=== PATIENT | female | born 1940 | race Caucasian/White ===

== ENCOUNTER 2023-02-17 06:13 | Emergency (ER) | payer OTHER, SELFPAY ==
[2023-02-17] VITALS (34 sets, daily range): BP systolic 116–172; BP diastolic 57–91; PULSE 59–75; RESP 13–22; TEMP 36.5; O2SAT 92–98
--- NOTE | 2023-02-17 06:30 | ECG_ITS ---
The [facility] Test Date: 2023-02-17 Pat Name: VENTURA MEHTA Department: Room: - Gender: Female [employer]: : 1940 Requested By: Urban James Order Number: [id number] Reading MD: BERNARD DOWNEY Measurements Intervals Crocker Rate: 59 P: 52 PA: 180 QRS: 51 QRSD: 78 T: 60 QT: 432 QTc: 432 Interpretive Statements 1100 Sinus rhythm 9110 normal ECG No previous ECG available for comparison Electronically Signed On 02-19-2023 17:44:44 EST by BERNARD DOWNEY
--- NOTE | 2023-02-17 06:30 | XR_ITS ---
The [address] [address] Patient Name: VENTURA MEHTA MRN: [id number] date: 1940 Sex: F Assigned Patient Location: ER [facility] Accession/Order Number: [id number] Exam Date: 02/17/2023 06:39 Report Date: 02/17/2023 07:05 At the request of: DAREK WHITFIELD Procedure: XR chest 1V EXAM: XR chest 1V HISTORY: Chest pain; technologist notes state worsening left-sided chest pain that radiates to the center starting yesterday and dyspnea. COMPARISON: None. TECHNIQUE: AP erect portable chest radiograph performed. FINDINGS: The trachea is midline. The cardiac silhouette is upper limits normal size to slightly prominent. There is mild atheromatous calcification at the aortic arch. The hilar shadows are unremarkable. The lung volumes are normal. There is mild biapical pleural parenchymal scarring. There is a 1.3 cm nodular radiodensity medially at the right lung base. There is otherwise no consolidation or infiltrate, pleural effusion or pulmonary vascular congestion. There is no pneumothorax. There is no acute osseous abnormality. The bony structures appear osteopenic. XR/XR chest 1V IMPRESSION: There is a 1.3 cm nodular radiodensity medially at the right lung base. There is otherwise no acute cardiopulmonary process. Electronically authenticated by: YE URIOSTEGUI Date: 02/17/2023 07:05
--- NOTE | 2023-02-17 06:35 | ED.CHESTPAI1 ---
HPI - Chest Pain General Chief Complaint: Chest Pain Stated Complaint: CHEST PAIN Time Seen by Provider: 02/17/23 06:30 Source: patient Mode of arrival: ambulance History of Present Illness HPI narrative: Patient brought in by EMS for evaluation of chest pain - she said she developed the pain yesterday around 530pm and then it went away quickly. She said that she woke at 530am with the same pain - lower chest underneath both breasts that is worse with deep breaths but not painful to the touch. No recent injury or illness or activity to account for the pain. She took two 325mg aspirin this morning and then EMS gave her two SL nitro doses on the way to our ED. She said that the pain decreased from 10/10 at 530am to 5/10 now. Related Data Allergies Allergy/AdvReac Type Severity Reaction Status Date / Time No Known Drug Allergies Allergy Verified 02/17/23 06:17 [facility] Social History Smoking status: Never smoker Exam Narrative Exam Narrative: Nurses notes and vital signs reviewed and patient is not hypoxic. afebrile General: Well-appearing and in no apparent distress. Skin: Warm, dry, no pallor noted. No rash. Eye: Pupils are equal, round and EOMI. No scleral icterus. Ears, Nose, Mouth, and Throat: Oral mucosa is moist Cardiovascular: Regular Rate and Rhythm without murmur, gallop or rub. Respiratory: No accessory muscle use or respiratory distress. Lungs are clear to auscultation, no wheezing, rales or rhonchi Chest Wall: no tenderness, crepitus or subcutaneous emphysema Back: No midline thoracic or lumbar vertebral tenderness. No CVA tenderness Musculoskeletal: normal ROM, no calf or popliteal tenderness, no lower extremity edema/swelling GI: Abdomen is soft, non-distended. Normal bowel sounds. No tenderness to palpation. No rebound, guarding, or rigidity noted. Neurological: A&O x4. No cranial nerve dysfunction observed. No truncal ataxia. Moves all extremities. Sensation intact. Psychiatric: Cooperative and interactive. Normal mood and affect. Constitutional Vital Signs, click to edit/add: Last Vital Signs Temp 97.7 F 02/17/23 06:14 Pulse 64 02/17/23 06:14 Resp 22 02/17/23 06:14 BP 124/66 02/17/23 06:14 Pulse Ox 94 L 02/17/23 06:14 O2 Del Method Room Air 02/17/23 06:14 Course Vital Signs Vital signs: Vital Signs Temperature 97.7 F 02/17/23 06:14 Pulse Rate 64 02/17/23 06:14 Respiratory Rate 22 02/17/23 06:14 Blood Pressure 124/66 02/17/23 06:14 Pulse Oximetry 94 L 02/17/23 06:14 Oxygen Delivery Method Room Air 02/17/23 06:14 Temperature 97.7 F 02/17/23 06:14 Pulse Rate 64 02/17/23 06:14 Respiratory Rate 22 02/17/23 06:14 Blood Pressure 124/66 02/17/23 06:14 Pulse Oximetry 94 L 02/17/23 06:14 Oxygen Delivery Method Room Air 02/17/23 06:14 MDM - Chest Pain MDM Narrative Medical decision making narrative: Patient was placed on potline monitor and EKG obtained. Blood drawn and sent for evaluation. portable chest x-ray obtained. She is given IV Zofran and IV morphine. EKG is normal. Patient signed out to Dr Hartman at 7am shift change with lab results and CXR pending. Lab Data Attestation: I reviewed the patient's lab results. ECG Data Attestation: I personally reviewed and interpreted this ECG as follows: Interpretation: EKG interpretation: Emergency Department physician interpretation. Normal sinus rhythm at 59bpm. Normal axis, normal intervals and no ST segment elevation or depression. normal EKG. Discharge Plan Discharge Chief Complaint: Chest Pain Clinical Impression: Chest pain Patient Disposition: Still a Patient Referrals: Physician,Non-Staff, [Primary Care Provider] - 1 week
[2023-02-17 06:50] LABS: Basophils Percent Auto 0.8 % (0.2-2.0); Eosinophils Absolute Auto 0.1 10^3/uL (0.0-0.7); Eosinophils Percent Auto 2.3 % (0.9-7.0); Hematocrit 36.2 % (36.0-48.0); Hemoglobin 12.3 g/dL (12.0-16.0); Immature Granulocytes Abs Auto 0.01 10^3/uL (0.00-0.03); Immature Granulocytes Pct Auto 0.2 % (0.0-0.5); Lymphocytes Percent Auto 41.1 % (20.5-60.0); Mean Corpuscular Hemoglobin 32.8 pg (26.7-34.0); Mean Corpuscular Volume 96.5 fL (81.0-99.0); Mean Platelet Volume 11.4 fL (9.5-13.5); Monocytes Absolute Auto 0.5 10^3/uL (0.3-0.8); Monocytes Percent Auto 9.5 % (1.7-12.0); Neutrophils Absolute Auto 2.2 10^3/uL (1.4-6.5); Neutrophils Percent Auto 46.1 % (43.0-75.0); Platelet Count 148 10^3/uL (150-450); Red Blood Count 3.75 10^6/uL (4.20-5.40); Red Cell Distribution Width 12.7 % (11.0-15.0); White Blood Count 4.8 10^3/uL (4.0-11.0)
[2023-02-17 07:05] LABS: Anion Gap 13.7; BUN Creatinine Ratio 13.8; Calcium 8.9 mg/dL (8.5-10.1); Carbon Dioxide 28.9 mmol/L (21.0-32.0); Chloride 102 mmol/L (98-107); Estimated GFR (African America >60 (>=60); Estimated GFR (Non-African Ame >60 (>=60); Glucose 161 mg/dL (74-106); Potassium 3.6 mmol/L (3.5-5.1); Sodium 141 mmol/L (136-145)
[2023-02-17 07:06] LABS: Troponin I High Sensitivity 75.4 pg/mL (4.0-51.3)
[2023-02-17 07:37] LABS: INR 1.07; Prothrombin Time 11.3 sec (9.0-11.6)
[2023-02-17 07:40] LABS: Partial Thromboplastin Time 24.4 sec (22.3-36.2)
[2023-02-17] MEDS: HEPARIN SODIUM (PORCINE) 5,000 UNIT/ML VIAL 2200 UNIT IV (07:41)
[2023-02-17] MEDS: HEPARIN SODIUM,PORCINE/D5W 25,000 UNIT/500 ML IV.SOLN 13.063 UNIT IV (07:41)
[2023-02-17] MEDS: MORPHINE SULFATE 4 MG/ML VIAL IV (09:05)
[2023-02-17] MEDS: NITROGLYCERIN 0.4 MG BOTTLE PO (09:06)
[2023-02-17 09:32] LABS: Troponin I High Sensitivity 1459.5 pg/mL (4.0-51.3)
== END 2023-02-17 12:03 | disposition short-term general hospital (02) ==
PROVIDERS: Emergency Medicine; Emergency Provider Emergency Medicine
DX: I21.4 Non-ST elevation (NSTEMI) myocardial infarction (principal); R07.9 Chest pain, unspecified
CPT/HCPCS: 36415; 71045; 80048; 83880; 84484; 85025; 85610; 85730; 93005; 96374; 96375; 99285

== ENCOUNTER 2023-03-09 11:59 | Outpatient (OUT) | payer OTHER, SELFPAY ==
--- OUTSIDE RECORDS SUMMARY | 2023-03-09 12:06 | XMS_ITS | CCD ---
Author Name Unknown Address [address] [place] [address] Organization [facility] Care Team Providers Care Dial Screw Assembler Name Role Phone Unavailable Unavailable Unavailable SIEGAL, VILLA D Unavailable Unavailable SIEGAL, VILLA D Unavailable Unavailable SIEGAL, VILLA D Unavailable Unavailable SIEGAL, VILLA D Unavailable Unavailable SIEGAL, VILLA D Unavailable Unavailable SIEGAL, VILLA D Unavailable Unavailable SIEGAL, VILLA D Unavailable Unavailable Stretanski, Elias F Unavailable Unavailabl e Stretanski, Elias F Unavailable Unavailabl e Stretanski, Elias F Unavailable Unavailabl e Stretanski, Elias F Unavailable Unavailabl e [place], Suleiman Asencio Unavailable [place]usaSuleiman Primary Care Provider [phone] [place]usaSuleiman Primary Care Provider Unavailabl e SECOR, SULEIMAN Attending Unavailable SELF, SELF Referring Unavailable SECOR, SULEIMAN Attending Unavailable SELF, SELF Referring Unavailable SECOR, SULEIMAN Attending Unavailable SELF, SELF Referring Unavailable SECOR, SULEIMAN Attending Unavailable SELF, SELF Referring Unavailable SECOR, SULEIMAN Primary Care Unavailable [place]usaSuleiman Primary Care Provider [phone] NON STAFF Primary Care Provider UnavailMD Carine Finch Admit Provider MD Carine Thompson Attending Provider [phone] MD Marie Muhammad Other Provider Marie Muhammad Consulting Unavailable NON STAFF Primary Care Unavailable Carine Thompson Attending Unavailable Carine Thompson Admitting Unavailable Armin Rios Unavailable Allergies Allergy Classification Reported Allergen(s) Allergy Type Date of Onset Reaction(s) Facility (20 sources) Ascorbic Acid Drug Allergy 7 Swelling [facility] Work Phone: (20 sources) Seasonal allergy Propensity to adverse reactions to drug 8 [facility] Work Phone: (1 source) Ascorbic Acid Drug Allergy 3 [facility] Repository Medications Current Medications Medication Drug Class(es) Dates Sig (Normalized) Sig (Original) ACAI PO (20 sources) take 1 tablet by lovely th once daily ACAI PO Take 1 tablet by mouth daily. 0 Active take 1 tablet by mouth once david y ACAI PO Take 1 tablet by mouth daily. Active ASHWAGANDHA PO (20 sources) take 1 tablet by lovely th once daily ASHWAGANDHA PO Take 1 tablet by mouth daily. 0 Active take 1 tablet by mouth once david y ASHWAGANDHA PO Take 1 tablet by mouth daily. Active aspirin 81 mg delayed release oral tablet (12 sources) Platelet Aggregation Inhibitor, Nonsteroidal Anti-inflammatory Drug Start: 02-18-2023 take 81 mg by mouth once daily Aspirin Active 81 MG PO Daily February 18, 2023 12:00am Start: 10-03-2018 End: 10-31-2018 aspirin 81 MG Chew Tab chewa ble tablet Indications: NSTEMI (non-ST elevated myocardial infarction) Chew 1 tablet daily. 90 tablet 3 10/31/2018 Active Start: 10-03-2018 aspirin 81 MG Chew Tab chewable tablet Chew 1 tablet daily. 30 tablet 0 10/03/2018 Active Start: 09-29-2018 take 81 mg by mouth once daily 81 mg, Oral, DAILY, First dose on 09/29/18 at 1715, Until Discontinued Start: 09-29-2018 aspirin tablet 325 mg atorvastatin 80 mg oral tablet (3 sources) HMG-CoA Reductase Inhibitor Start: 02-18-2023 take 80 mg by mouth once daily in the evening Atorvastatin Active 80 MG PO Every evening February 18, 2023 12:00am Start: 09-30-2018 atorvastatin ( LIPITOR) tablet 80 mg Bilberry, Vaccinium myrtillus, (BILBERRY PO) (20 sources) take 1 tablet by lovely th once daily Bilberry, Vaccinium myrtillus, (BILBERRY PO) Take 1 tablet by mouth daily. 0 Active take 1 tablet by mouth once david y Bilberry, Vaccinium myrtillus, (BILBERRY PO) Take 1 tablet by mouth daily. Active Biotin (20 sources) take 1 tablet by mouth once david y BIOTIN PO Take 1 tablet by mouth daily. 0 Active take 1 tablet by mouth once david y BIOTIN PO Take 1 tablet by mouth daily. Active Calcium (20 sources) Phosphate Binder, Calcium take 1 tablet by mouth twice daily CALCIUM PO Take 1 tablet by mouth 2 times daily. 0 Active take 1 tablet by mouth twice ciara ly CALCIUM PO Take 1 tablet by mouth 2 times daily. Active carvedilol 12.5 mg oral tablet (9 sources) alpha-Adrenergic Rangel, beta-Adrenergic Rangel Start: 10-02-2018 End: 10-31-2018 take 1 tablet by mouth every twelve hours carveDILOL 12.5 MG Tab tablet Indications: Essential hypertension, benign Take 1 tablet by mouth every 12 hours. 180 tablet 3 10/31/2018 Active Start: 10-02-2018 carveDILOL (CO REG) tablet 12.5 mg cephalexin 500 mg oral capsule (2 sources) Cephalosporin Antibacterial Start: 02-04-2019 End: 02-14-2019 take 1 capsule by mouth three times daily cephALEXin 500 MG Cap capsule Take 1 capsule by mouth 3 times daily for 10 days. 30 capsule 0 02/04/2019 02/14/2019 Active Start: 01-23-2018 End: 01-30-2018 take 1 capsule by mouth three times daily cephALEXin 500 MG Cap capsule Take 1 capsule by mouth 3 times daily for 7 days. 21 capsule 0 01/23/2018 01/30/2018 Active Cholecalciferol (20 sources) Vitamin D take 1 tablet by lovely th once daily Cholecalciferol (VITAMIN D3 PO) Take 1 tablet by mouth daily. 0 Active take 1 tablet by mouth once david y Cholecalciferol (VITAMIN D3 PO) Take 1 tablet by mouth daily. Active Chondroitin Sulfates / Glucosamine (20 sources) take 1 tablet by mouth twice daily GLUCOSAMINE-CHONDROITIN PO Take 1 tablet by mouth 2 times daily. 0 Active take 1 tablet by lovely th twice daily GLUCOSAMINE-CHONDROITIN PO Take 1 tablet by mouth 2 times daily. Active clopidogrel 75 mg oral tablet (11 sources) P2Y12 Platelet Inhibitor Start: 02-18-2023 take 75 mg by mouth once daily Clopidogrel Active 75 MG PO Daily February 18, 2023 12:00am Start: 10-03-2018 End: 10-31-2018 take 1 tablet by mouth once daily clopidogrel 75 MG Tab tablet Indications: NSTEMI (non-ST elevated myocardial infarction) Take 1 tablet by mouth daily. 90 tablet 3 10/31/2018 Active Start: 10-03-2018 take 1 tablet by lovely th once daily clopidogrel 75 MG Tab tablet Take 1 tablet by mouth daily. 30 tablet 0 10/03/2018 Active Start: 10-02-2018 clopidogrel (P LAVIX) tablet 75 mg DISABILITY PLACARD (20 sources) Start: 01-24-2017 DISABILITY ALFREDA CARD Unable to walk 200ft. 1 year 1 Each 0 01/24/2017 Active doxycycline hyclate 100 mg oral capsule (2 sources) Tetracycline- class Drug Start: 05-15-2018 End: 05-25-2018 take 1 capsule by mouth twice daily doxycycline hyclate 100 MG Cap capsule Take 1 capsule by mouth 2 times daily for 10 days. 20 capsule 0 05/15/2018 05/25/2018 Active Start: 01-31-2018 End: 02-10-2018 take 1 capsule by mouth twice daily doxycycline hyclate 100 MG Cap capsule Take 1 capsule by mouth 2 times daily for 10 days. 20 capsule 0 01/31/2018 02/10/2018 Active Folic Acid (20 sources) take 1 tablet by mouth once david y FOLIC ACID PO Take 1 tablet by mouth daily. 0 Active take 1 tablet by mouth once david y FOLIC ACID PO Take 1 tablet by mouth daily. Active Garlic preparation (20 sources) Non-Standardized Food Allergenic Extract take 1 tablet by mouth once daily GARLIC PO Take 1 tablet by mouth daily. 0 Active take 1 tablet by mouth once david y GARLIC PO Take 1 tablet by mouth daily. Active Ginkgo biloba extract (20 sources) take 1 tablet by lovely th once daily GINKGO BILOBA PO Take 1 tablet by mouth daily. 0 Active take 1 tablet by mouth once david y GINKGO BILOBA PO Take 1 tablet by mouth daily. Active GINSENG PO (20 sources) take 1 tablet by mouth once david y GINSENG PO Take 1 tablet by mouth daily. 0 Active take 1 tablet by mouth once david y GINSENG PO Take 1 tablet by mouth daily. Active 24 hr isosorbide mononitrate 30 mg extended release oral tablet (2 sources) Nitrate Vasodilator Start: 02-18-2023 take 30 mg by mouth once daily in the morning Isosorbide Mononitrate Active 30 MG PO Every morning February 18, 2023 12:00am L-ARGININE PO (20 sources) L-ARGININE PO Ta ke by mouth. 0 Active L-ARGININE PO Ta ke by mouth. Active 4 ml labetalol hydrochloride 5 mg/ml cartridge (1 source) beta-Adrenergic Rangel Start: 09-30-2018 take 20 mg intravenous route every six hours as needed labetalol (NORMODYNE) injection 20 mg lisinopril 20 mg oral tablet (15 sources) Angiotensin Converting Enzyme Inhibitor Start: 10-12-2017 End: 10-02-2018 take 1 tablet by mouth once daily lisinopril 20 MG Tab Take 1 tablet by mouth daily. 90 tablet 3 07/10/2018 Active loratadine 10 mg oral tablet (20 sources) Start: 12-25-2017 End: 09-28-2018 take 1 tablet by mouth once daily loratadine 10 MG Tab tablet Take 1 tablet by mouth daily. 90 tablet 3 09/28/2018 Active Lutein (20 sources) take 1 tablet by mouth once daily LUTEIN PO Take 1 tablet by mouth daily. 0 Active take 1 tablet by mouth once david y LUTEIN PO Take 1 tablet by mouth daily. Active Magnesium (20 sources) take 1 tablet by lovely th once daily MAGNESIUM PO Take 1 tablet by mouth daily. 0 Active take 1 tablet by mouth once david y MAGNESIUM PO Take 1 tablet by mouth daily. Active 24 hr metoprolol succinate 25 mg extended release oral tablet (4 sources) beta-Adrenergic Rangel Start: 02-18-2023 take 25 mg by mouth once daily Metoprolol Succinate Active 25 MG PO Daily February 18, 2023 12:00am Start: 10-01-2018 End: 10-02-2018 metoprolol (LOPRESSOR) table t 25 mg Start: 09-29-2018 End: 09-29-2018 metoprolol (LOPRESSOR) injec tion 5 mg nitroglycerin 0.4 mg sublingual tablet (4 sources) Nitrate Vasodilator Start: 02-18-2023 Nitroglyce rin Active 0.4 MG SUBLINGUAL Q5M February 18, 2023 12:00am Start: 09-29-2018 End: 10-01-2018 nitroGLYCERIN in dextrose 5% 50 mg/250 ml premix infusion Start: 09-29-2018 End: 09-29-2018 nitroGLYCERIN (NITRO-BID) 2 % ointment 1 inch Nitroglycerin 0. 4 MG as directed Sublingual every 5 mins x 3 for chest pain Active [place] (No Known Home Meds) (1 source) Start: 02-17-2023 [place] (No Kn own Home Meds) Active February 17, 2023 12:00am [place] 3-6-9 Fatty Acids (OMEGA-3-6-9 PO) (20 sources) take 1 tablet by mouth once daily [place] 3-6-9 Fatty Acids (OMEGA-3-6-9 PO) Take 1 tablet by mouth daily. 0 Active take 1 tablet by mouth once david y [place] 3-6-9 Fatty Acids (OMEGA-3-6-9 PO) Take 1 tablet by mouth daily. Active pantoprazole 40 mg delayed release oral tablet (3 sources) Proton Pump Inhibitor Start: 09-30-2018 pantoprazole (PROTONIX) tablet DR 40 mg Start: 09-29-2018 End: 09-30-2018 40 mg, Intravenous, DAILY, F irst dose on 09/29/18 at 1715, Until Discontinued Dilute each 40 mg vial with 10 mL of NS. All bolus doses, whether 40 mg or 80 mg, should be administered over at least two minutes. Indications: Inpt Stress Ulcer Prophylaxis microencapsulated potassium chloride 20 meq extended release oral tablet (1 source) Start: 09-30-2018 potassium chlo ride (K-DUR, KLOR-CON M20) tablet ER 40 mEq tafluprost 0.015 mg/ml ophthalmic solution (20 sources) Prostaglandin Analog Start: 02-21-2017 ZIOPTAN 0 .0015 % Solution Apply 1 drop topically daily. 6 02/21/2017 Active Start: 02-21-2017 ZIOPTAN 0.0015 % Solution Apply 1 drop topically daily. 6 02/21/2017 Active TURMERIC CURCUMIN PO (20 sources) take 1 tablet by lovely th once daily TURMERIC CURCUMIN PO Take 1 tablet by mouth daily. 0 Active take 1 tablet by mouth once david y TURMERIC CURCUMIN PO Take 1 tablet by mouth daily. Active VITAMIN A PO (20 sources) take 1 tablet by mouth once david y VITAMIN A PO Take 1 tablet by mouth daily. 0 Active take 1 tablet by mouth once david y VITAMIN A PO Take 1 tablet by mouth daily. Active Vitamin B 12 (20 sources) Vitamin B12 take 1 tablet by lovely th once daily Cyanocobalamin (VITAMIN B12 PO) Take 1 tablet by mouth daily. 0 Active take 1 tablet by mouth once david y Cyanocobalamin (VITAMIN B12 PO) Take 1 tablet by mouth daily. Active VITAMIN E PO (20 sources) take 1 tablet by mouth once david y VITAMIN E PO Take 1 tablet by mouth daily. 0 Active take 1 tablet by mouth once david y VITAMIN E PO Take 1 tablet by mouth daily. Active Completed/Discontinued Medications Medication Drug Class(es) Dates Sig (Normalized) Sig (Original) acetaminophen 325 mg oral tablet (1 source) Start: 09-29-2018 take 1 tablet by mouth every four hours as needed 650 mg, Oral, EVERY 4 HOURS NEEDED, Starting 09/29/18 at 1702, Until Discontinued, Mild Pain, Oral temp > 100.4 F benzonatate 200 mg oral capsule (7 sources) Non-narcotic Antitussive Start: 01-23-2018 End: 05-15-2018 take 1 capsule by mouth three times daily as needed for cough benzonatate 200 MG Cap capsule Take 1 capsule by mouth 3 times daily as needed for Cough. 30 capsule 1 01/23/2018 05/15/2018 Discontinued 500 ml heparin sodium, porcine 50 unt/ml injection (5 sources) Unfractionated Heparin, Anti-coagulant Start: 09-29-2018 End: 09-29-2018 heparin injection 3,500 Units Start: 09-29-2018 End: 10-01-2018 Heparin Sod (Porcine) in D5W 47040-1 UT/500ML-% infusion methocarbamol 750 mg oral tablet (1 source) Muscle Relaxant Start: 04-07-2017 End: 01-23-2018 take 1-2 tablets by mouth every eight hours as needed for muscle spasms methocarbamol 750 MG Tab Indications: Status post lumbar laminectomy Take 1-2 tablets by mouth every 8 hours as needed for Other (muscle spasm). 30 tablet 0 04/07/2017 01/23/2018 Discontinued methylsulfonylmethane (1 source) End: 01-23-2018 take 1 tablet by mouth once daily Methylsulfonylmethane (MSM PO) Take 1 tablet by mouth daily. 01/23/2018 Discontinued 1 ml morphine sulfate 4 mg/ml cartridge (2 sources) Opioid Agonist Start: 09-29-2018 End: 09-29-2018 take 2 mg intravenous route every three hours as needed 2 mg, Intravenous, EVERY 3 HOURS NEEDED, Starting 09/29/18 at 1702, Until Discontinued, Moderate Pain, Severe Pain, Inform physician if requiring morphine and repeat EKG Niacin (10 sources) Nicotinic Acid End: 2018 take 1 tablet by mouth once daily NIACIN PO Take 1 tablet by mouth daily. 0 2018 Discontinued take 1 tablet by mouth once david y NIACIN PO Take 1 tablet by mouth daily. 0 Active take 1 tablet by mouth once david y NIACIN PO Take 1 tablet by mouth daily. Active 2 ml ondansetron 2 mg/ml injection (2 sources) Serotonin-3 Receptor Antagonist Start: 09-29-2018 take 4 mg intravenous route every four hours as needed 4 mg, Intravenous, EVERY 4 HOURS NEEDED, Starting 09/29/18 at 1702, Until Discontinued, Nausea / Vomiting Start: 09-29-2018 End: 09-29-2018 ondansetron 4mg/2ml (ZOFRAN) injection 4 mg PARoxetine hydrochloride 10 mg oral tablet (4 sources) Serotonin Reuptake Inhibitor Start: 05-15-2018 End: 2018 take 1 tablet by mouth once daily paroxetine 10 MG Tab tablet Take 1 tablet by mouth daily. 30 tablet 5 05/15/2018 2018 Discontinued 1000 ml sodium chloride 9 mg/ml injection (1 source) Start: 10-01-2018 End: 10-02-2018 sodium chloride 0.9% IV solution ticagrelor 90 mg oral tablet (2 sources) Start: 10-01-2018 End: 10-01-2018 ticagrelor (BRILINTA) tablet 180 mg Start: 09-29-2018 End: 09-29-2018 ticagrelor (BRILINTA) tablet 180 mg Problems Active Problems Problem Classification Problem Date Documented Da te Episodic/Chronic Acute myocardial infarction (12 sources) Myocardial infarction; Translations: [Non-ST elevation (NSTEMI) myocardial infarction] Onset: 10-01-2018 10-01-2018 Chronic Anxiety disorders (1 source) Anxiety disorder; Translations: [Anxiety disorder, unspecified type] Chronic Cataract (20 sources) Cataract; Translations: [Cataract] 08-19-2016 Chronic Coronary atherosclerosis and other heart disease (5 sources) Acute coronary syndrome; Translations: [Coronary atherosclerosis] Chronic Essential hypertension (20 sources) Benign essential hypertension; Translations: [Essential hypertension, benign] 04-06-2017 Chronic Glaucoma (20 sources) Glaucoma; Translations: [Glaucoma] 04-06-2017 Chronic Heart valve disorders (2 sources) Aortic valve stenosis; Translations: [Nonrheumatic aortic (valve) stenosis] Chronic Heart valve disorders (3 sources) Heart murmur; Translations: [Cardiac murmur, unspecified] Onset: 02-17-2023 02-17-2023 Episodic Nonspecific chest pain (20 sources) Chest pain; Translations: [Cardiac chest pain] Onset: 09-29-2018 09-30-2018 Episodic Other acquired deformities (2 sources) Spondylolisthesis, lumbar region; Translations: [Spondylolisthesis of lumbar region] Episodic Other and ill-defined heart disease (4 sources) Takotsubo cardiomyopathy; Translations: [Takotsubo syndrome] Chronic Other and ill-defined heart disease (1 source) Takotsubo syndrome Chronic Other lower respiratory disease (4 sources) Rib pain; Translations: [Rib pain] Onset: 2018 Episodic Other lower respiratory disease (1 source) Nodule of lung; Translations: [Solitary pulmonary nodule] 02-17-2023 Episodic Other lower respiratory disease (1 source) Solitary pulmonary nodule; Translations: [Solitary pulmonary nodule] 02-19-2023 Episodic Other upper respiratory disease (20 sources) Seasonal allergic rhinitis; Translations: [Seasonal allergic rhinitis] 08-19-2016 Chronic Other upper respiratory disease (2 sources) Pain in throat; Translations: [Sore Throat] Onset: 05-15-2018 Episodic Residual codes; unclassified (2 sources) Noncompliance with treatment; Translations: [Noncompliance] 02-18-2023 Episodic Spondylosis; intervertebral disc disorders; other back problems (2 sources) Backache; Translations: [Back Pain] Onset: 2018 Episodic Unclassified (2 sources) Other specified postprocedural states; Translations: [Other specified postprocedural states] Onset: 04-06-2017 Unclassified (20 sources) History of lumbar laminectomy; Translations: [Status post lumbar laminectomy] Onset: 04-06-2017 04-06-2017 Unclassified (1 source) Patient's noncompliance with other medical treatment and regimen due to unspecified reason; Translations: [Patient's noncompliance with other medical treatment and regimen due to unspecified reason] Onset: 02-17-2023 Past or Other Problems Problem Classification Problem Date Documented Date Episodic/Chronic Deficiency and other anemia (20 sources) Anemia; Translations: [Anemia] Onset: 04-06-2017 04-06-2017 Episodic Medical examination/evaluatio n (2 sources) Encounter for other preprocedural examination; Translations: [Encounter for other preprocedural examination] Onset: 03-23-2017 Episodic Other lower respiratory disease (5 sources) Cough; Translations: [Cough] Onset: 01-31-2018 Episodic Other upper respiratory disease (2 sources) Nasal congestion; Translations: [Nasal Congestion] Onset: 01-23-2018 Episodic Other upper respiratory infections (4 sources) Upper respiratory infection; Translations: [Upper respiratory tract infection, unspecified type] Episodic Results Test Name Value Interpretation Reference Range Facility ECG 12 lead ECGon 02-19-2023 ECG 12 lead ECG [facility] [place] [address] Electrocardiograph Report Signed Patient: Nancy Putnam MR#: [id number] 9 : 1940 Acct:[id number] Age/Sex: 82 / F ADM Date: 02/17/23 Loc: Room: [address] [place] [address] Type: ADM IN Attending Dr: Carine Thompson MD Ordering Provider: Carine Thompson MD Date of Service: 02/19/2301/02/500 ECG/ECG 12 lead ECG: Chest pain Copies to: Test Reason : Blood Pressure : / mmHG Vent. Rate : 069 BPM Atrial Rate : 069 BPM P-R Int : 188 ms QRS Dur : 076 ms QT Int : 396 ms P-R-T Axes : 075 080 096 degrees QTc Int : 424 ms Normal sinus rhythm Nonspecific ST abnormality When compared with ECG of 18-FEB-2023 06:52, No significant change was found Confirmed by MIGUEL RASMUSSEN MD ([id number]) on 02/19/2023 11:57:50 AM Referred By: Electronically Signed By:MIGUEL RASMUSSEN MD Transcribed By: MUS Signed By Miguel Rasmussen MD 1 04/22/22 1157 [facility] Basic Metabolic Panelon 12-0 Anion gap [Moles/Vol] Not performed Normal 6.0-15.0 [facility] Comment on above: Performed By: #### C BC, LIPID, BMP #### [facility] [address] Calcium [Mass/Vol] 9.0 mg/dL Normal 8.6-10.3 [facility] Comment on above: Performed By: #### C BC, LIPID, BMP #### [facility] [address] [place] [address] [place] Chloride [Moles/Vol] 101 mmol/L Normal 98-107 [facility] Comment on above: Performed By: #### C BC, LIPID, BMP #### [facility] [address] [place] [address] [place] CO2 [Moles/Vol] 28.3 mmol/L Normal 21.0-31.0 [facility] Comment on above: Performed By: #### C BC, LIPID, BMP #### [facility] [address] [place] [address] [place] Creatinine [Mass/Vol] 0.71 mg/dL Normal 0.60-1.20 [facility] Comment on above: Performed By: #### C BC, LIPID, BMP #### [facility] [address] [place] [address] [place] Creatinine Clr Calc Pharmacy 42.88 [facility] Comment on above: Performed By: #### C BC, LIPID, BMP #### [facility] [address] [place] [address] [place] GFR/1.73 sq M.predicted MDRD (S/P/Bld) [Vol rate/Area] mL/min/{1.73_m2} [facility] Comment on above: Performed By: #### C BC, LIPID, BMP #### [facility] [address] [place] [address] [place] Glucose [Mass/Vol] 110 mg/dL High 70-100 [facility] Comment on above: Result Comment: [facility] Glucose Reference Range is dependent on time and content of last meal. Glucose of more than 200 mg/dL in a nonstressed, ambulatory subject supports the diagnosis of Diabetes Mellitus. ADA recommended reference range Performed By: #### C BC, LIPID, BMP #### [facility] [address] Potassium Normal 3.5-5.1 [facility] Comment on above: Result Comment: Spec imen hemolyzed, redraw requested Performed By: #### C BC, LIPID, BMP #### [facility] [address] Sodium [Moles/Vol] 135 mmol/L Low 136-145 [facility] Comment on above: Performed By: #### C BC, LIPID, BMP #### [facility] [address] Urea nitrogen [Mass/Vol] 11 mg/dL Normal 7-25 [facility] Comment on above: Performed By: #### C BC, LIPID, BMP #### [facility] [address] Basophils Auto (Bld) [#/Vol] Ordered By: Carine Thompson on 02-18-2023 Basophils (Bld) [#/Vol] 0.0 10*3/uL 0.0-0.2 [facility] Basophils/100 WBC Auto (Bld) Ordered By: Carine Thompson on 02-18-2023 Basophils/100 WBC (Bld) 0.7 % . [facility] Calcium [Mass/volume] in Ser um or PlasmaOrdered By: Carine Thompson on 02-18-2023 Calcium [Mass/Vol] 9.0 mg/dL 8.6-10.3 [facility] Carbon dioxide, total [Moles /volume] in Serum or PlasmaOrdered By: Carine Thompson on 02-18-2023 CO2 [Moles/Vol] 28.3 mmol/L 21.0-31.0 [facility] Chloride [Moles/volume] in S [place] or PlasmaOrdered By: Carine Thompson on 02-18-2023 Chloride [Moles/Vol] 101 mmol/L 98-107 [facility] Cholesterol [Mass/volume] in Serum or PlasmaOrdered By: Carine Thompson on 02-18-2023 Cholesterol [Mass/Vol] 157 mg/dL 140-200 [facility] Comment on above: Chol less than 200 m g/dl low riskChol 201-239 mg/dl borderline riskChol 240 mg/dl and greater high risk Cholesterol in LDL Calc [Mas s/Vol]Ordered By: Carine Thompson on 02-18-2023 Cholesterol in LDL [Mass/Vol] 93 mg/dL 0-100 [facility] Comment on above: LDL ATP III CLASSIFI CATIONLDL less than 100 mg/dL OptimalLDL 100-129 mg/dL Near or above optimalLDL 130-159 mg/dL Borderline highLDL 160-189 mg/dL HighLDL greater than 189 mg/dL Very high Cholesterol in VLDL Calc [Ma ss/Vol]Ordered By: Carine Thompson on 02-18-2023 Cholesterol in VLDL [Mass/Vol] 18 mg/dL [facility] Complete Blood Count Auto Di ffon 02-18-2023 Basophils (Bld) [#/Vol] 0.0 10*3/uL Normal 0.0-0.2 [facility] Comment on above: Result Comment: PERF ORMED BY: [place] [address] PATHOLOGIST [employer]ER NUPUR DEL CASTILLO M.D. Performed By: #### C BC, LIPID, BMP #### [facility] [address] [place] [address] [place] Basophils/100 WBC (Bld) 0.7 % Normal . [facility] Comment on above: Performed By: #### C BC, LIPID, BMP #### [facility] [address] [place] [address] [place] Eosinophils (Bld) [#/Vol] 0.0 10*3/uL Normal 0.0-0.45 [facility] Comment on above: Performed By: #### C BC, LIPID, BMP #### [facility] [address] [place] [address] [place] Eosinophils/100 WBC (Bld) 0.4 % Normal . [facility] Comment on above: Performed By: #### C BC, LIPID, BMP #### [address] Erythrocyte distribution width (RBC) [Ratio] 13.3 % Normal 11.9-15.3 [facility] Comment on above: Performed By: #### C BC, LIPID, BMP #### [address] Hematocrit (Bld) [Volume fraction] 37.2 % Normal 34.0-46.4 [facility] Comment on above: Performed By: #### C BC, LIPID, BMP #### [address] Hemoglobin (Bld) [Mass/Vol] 12.5 g/dL Normal 11.8-15.4 [facility] Comment on above: Performed By: #### C BC, LIPID, BMP #### [address] Lymphocytes (Bld) [#/Vol] 1.5 10*3/uL Normal 1.00-4.8 [facility] Comment on above: Performed By: #### C BC, LIPID, BMP #### [address] Lymphocytes/100 WBC (Bld) 28.7 % Normal . [facility] Comment on above: Performed By: #### C BC, LIPID, BMP #### [place] [address] [place] MCH (RBC) [Entitic mass] 32.3 pg Normal 24.7-34.3 [facility] Comment on above: Performed By: #### C BC, LIPID, BMP #### [address] MCV (RBC) [Entitic vol] 96.5 fL Normal 80-100 [facility] Comment on above: Performed By: #### C BC, LIPID, BMP #### [facility] [address] Mean Corpuscular HGB Conc 33.5 g/dL Normal 32.0-35.0 [facility] Comment on above: Performed By: #### C BC, LIPID, BMP #### [facility] [address] Monocytes (Bld) [#/Vol] 0.7 10*3/uL Normal 0.0-0.8 [facility] Comment on above: Performed By: #### C BC, LIPID, BMP #### [facility] [address] Monocytes/100 WBC (Bld) 13.6 % Normal . [facility] Comment on above: Performed By: #### C BC, LIPID, BMP #### [address] Neutrophils (Bld) [#/Vol] 3.0 10*3/uL Normal 1.8-7.7 [facility] Comment on above: Performed By: #### C BC, LIPID, BMP #### [address] Neutrophils/100 WBC (Bld) 56.6 % Normal . [facility] Comment on above: Performed By: #### C BC, LIPID, BMP #### [address] NRBC% 0.1 /100{WBC} Normal 0-0.5 [facility] Comment on above: Performed By: #### C BC, LIPID, BMP #### [facility] [address] [place] [address] [place] Platelet mean volume (Bld) [Entitic vol] 9.3 fL Normal 6.3-10.7 [facility] Comment on above: Performed By: #### C BC, LIPID, BMP #### [facility] [address] [place] [address] [place] Platelets (Bld) [#/Vol] 166 10*3/uL Normal 150-450 [facility] Comment on above: Performed By: #### C BC, LIPID, BMP #### [facility] [address] [place] [address] [place] RBC (Bld) [#/Vol] 3.86 10*6/uL Normal 3.60-5.[address] [facility] Comment on above: Performed By: #### C BC, LIPID, BMP #### [facility] [address] [place] [id number] [facility] WBC (Bld) [#/Vol] 5.3 10*3/uL Normal 3.8-11.6 [facility] Comment on above: Performed By: #### C BC, LIPID, BMP #### [facility] [address] Creatinine [Mass/volume] in Serum or PlasmaOrdered By: Carine Thompson on 02-18-2023 Creatinine [Mass/Vol] 0.71 mg/dL 0.60-1.20 [facility] ECG 12 lead ECGon 02-18-2023 ECG 12 lead ECG [facility] Main [place] [address] [place] [address] Electrocardiograph Report Signed Patient: Nancy Putnam MR#: [id number] 9 : 1940 Acct:[id number] Age/Sex: 82 / F ADM Date: 02/17/23 Loc: Room: [address] [place] [address] Type: ADM IN Attending Dr: Carine Thompson MD Ordering Provider: Carine Thompson MD Date of Service: 02/18/2312/03/499 ECG/ECG 12 lead ECG: Chest pain Copies to: Test Reason : Blood Pressure : / mmHG Vent. Rate : 079 BPM Atrial Rate : 079 BPM P-R Int : 210 ms QRS Dur : 074 ms QT Int : 378 ms P-R-T Axes : 057 078 085 degrees QTc Int : 433 ms Sinus rhythm with 1st degree AV block Otherwise normal ECG No previous ECGs available Confirmed by MIGUEL RASMUSSEN MD ([id number]) on 02/18/2023 6:24:41 PM Referred By: Electronically Signed By:MIGUEL RASMUSSEN MD Transcribed By: MUS Signed By Miguel Rasmussen MD 1 04/21/22 1824 Normal [facility] Eosinophils Auto (Bld) [#/Vo l]Ordered By: Carine Thompson on 02-18-2023 Eosinophils (Bld) [#/Vol] 0.0 10*3/uL 0.0-0.45 [facility] Eosinophils/100 WBC Auto (Bl d)Ordered By: Carine Thompson on 02-18-2023 Eosinophils/100 WBC (Bld) 0.4 % . [facility] Erythrocyte distribution wid th Auto (RBC) [Ratio]Ordered By: Carine Thompson on 02-18-2023 Erythrocyte distribution width (RBC) [Ratio] 13.3 % 11.9-15.3 [facility] Glucose [Mass/volume] in Ser um or PlasmaOrdered By: Carine Thompson on 02-18-2023 Glucose [Mass/Vol] 110 mg/dL 70-100 [facility] Comment on above: ADA recommended refe rence rangeRandom Glucose Reference Range is dependent on time and content of last meal. Glucose of more than 200 mg/dL in a nonstressed, ambulatory subject supports the diagnosis of Diabetes Mellitus. Hematocrit Auto (Bld) [Volum e fraction]Ordered By: Carine Thompson on 02-18-2023 Hematocrit (Bld) [Volume fraction] 37.2 % 34.0-46.4 [facility] Hemoglobin [Mass/volume] in BloodOrdered By: Carine Thompson on 02-18-2023 Hemoglobin (Bld) [Mass/Vol] 12.5 g/dL 11.8-15.4 [facility] Leukocytes [#/volume] correc kevin for nucleated erythrocytes in Blood by Automated counOrdered By: Carine Thompson on 02-18-2023 WBC corrected for nucl RBC Auto (Bld) [#/Vol] 5.3 10*3/uL 3.8-11.6 [facility] Lipid Panelon 02-18-2023 Cholesterol [Mass/Vol] 157 mg/dL Normal 140-200 [facility] Comment on above: Result Comment: Chol less than 200 mg/dl low risk Chol 201-239 mg/dl borderline risk Chol 240 mg/dl and greater high risk Performed By: #### C BC, LIPID, BMP #### [facility] [address] Cholesterol in HDL [Mass/Vol] 46 mg/dL Normal 23-92 [facility] Comment on above: Result Comment: HDL CHOL ATP-III CLASSIFICATION Cardiovascular Risk HDL > or equal to 60 mg/dL LOW HDL < 40 mg/dL HIGH Performed By: #### C BC, LIPID, BMP #### [address] Cholesterol.total/Chol esterol in HDL [Mass ratio] 3.4 {ratio} Normal <5.0 [facility] Comment on above: Result Comment: PERF ORMED BY: [place] [address] PATHOLOGIST SPOOL CLEANER NUPUR DEL CASTILLO M.D. Performed By: #### C BC, LIPID, BMP #### [address] LDL Cholesterol,Calculated 93 mg/dL Normal 0-100 [facility] Comment on above: Result Comment: LDL ATP III CLASSIFICATION LDL less than 100 mg/dL Optimal LDL 100-129 mg/dL Near or above optimal LDL 130-159 mg/dL Borderline high LDL 160-189 mg/dL High LDL greater than 189 mg/dL Very high Performed By: #### C BC, LIPID, BMP #### [address] Triglyceride w/Reflex 90 mg/dL Normal 0-149 [facility] Comment on above: Result Comment: TRIG ATP III CLASSIFICATION TRIG less than 150 mg/dL Normal TRIG 150-199 mg/dL Borderline high TRIG 200-500 mg/dL High TRIG greater than 500 mg/dL Very high Standard traceable to the Center for Disease Conrtrol and Prevention (CDC) test method. Performed By: #### C BC, LIPID, BMP #### [facility] [address] VLDL CHOLESTEROL 18 mg/dL Normal [facility] Comment on above: Performed By: #### C BC, LIPID, BMP #### [facility] [address] [place] [id number] [facility] Lymphocytes Auto (Bld) [#/Vo l]Ordered By: Carine Thompson on 02-18-2023 Lymphocytes (Bld) [#/Vol] 1.5 10*3/uL 1.00-4.8 [facility] Lymphocytes/100 WBC Auto (Bl d)Ordered By: Carine Thompson on 02-18-2023 Lymphocytes/100 WBC (Bld) 28.7 % . [facility] MCH Auto (RBC) [Entitic mass ]Ordered By: Carine Thompson on 02-18-2023 MCH (RBC) [Entitic mass] 32.3 pg 24.7-34.3 [facility] MCHC Auto (RBC) [Mass/Vol]Or dered By: Carine Thompson on 02-18-2023 MCHC (RBC) [Mass/Vol] 33.5 g/dL 32.0-35.0 [facility] MCV Auto (RBC) [Entitic vol] Ordered By: Carine Thompson on 02-18-2023 MCV (RBC) [Entitic vol] 96.5 fL 80-100 [facility] Monocytes Auto (Bld) [#/Vol] Ordered By: Carine Thompson on 02-18-2023 Monocytes (Bld) [#/Vol] 0.7 10*3/uL 0.0-0.8 [facility] Monocytes/100 WBC Auto (Bld) Ordered By: Carine Thompson on 02-18-2023 Monocytes/100 WBC (Bld) 13.6 % . [facility] Neutrophils Auto (Bld) [#/Vo l]Ordered By: Carine Thompson on 02-18-2023 Neutrophils (Bld) [#/Vol] 3.0 10*3/uL 1.8-7.7 [facility] Neutrophils/100 WBC Auto (Bl d)Ordered By: Carine Thompson on 02-18-2023 Neutrophils/100 WBC (Bld) 56.6 % . [facility] No Panel InformationOrdered By: Carine Thompson on 02-18-2023 Estimated GFR (CKD-EPI) > 60.0 mL/Min [facility] Creatinine Clearance (Chem 42.88 [facility] Nucleated erythrocytes [Pres ence] in Blood by Automated countOrdered By: Carine Thompson on 02-18-2023 Nucleated RBC Auto Ql (Bld) 0.1 /100{WBC} 0-0.5 [facility] Platelet mean volume Auto (B ld) [Entitic vol]Ordered By: Carine Thompson on 02-18-2023 Platelet mean volume (Bld) [Entitic vol] 9.3 fL 6.3-10.7 [facility] Platelets Auto (Bld) [#/Vol] Ordered By: Carine Thompson on 02-18-2023 Platelets (Bld) [#/Vol] 166 10*3/uL 150-450 [facility] Potassium [Moles/volume] in Serum or PlasmaOrdered By: Carine Thompson on 02-18-2023 Potassium [Moles/Vol] 4.0 mmol/L 3.5-5.1 [facility] RBC Auto (Bld) [#/Vol]Ordere d By: Carine Thompson on 02-18-2023 RBC (Bld) [#/Vol] 3.86 10*6/uL 3.60-5.[address] [facility] Redraw Potassiumon Potassium [Moles/Vol] 4.0 mmol/L Normal 3.5-5.1 [facility] Comment on above: Result Comment: PERF ORMED BY: [place] [address] PATHOLOGIST SPOOL CLEANER NUPUR DEL CASTILLO M.D. Performed By: #### R KASEY K #### [address] Serum or plasma anion gap de terminationOrdered By: Carine Thompson on 02-18-2023 Anion gap [Moles/Vol] TNP [facility] Comment on above: Test not performed Serum or plasma high density lipoprotein (HDL) cholesterol measurementOrdered By: Carine Thompson on 02-18-2023 Cholesterol in HDL [Mass/Vol] 46 mg/dL 23-92 [facility] Comment on above: HDL CHOL ATP-III CLA SSIFICATION Cardiovascular RiskHDL > or equal to 60 mg/dL LOWHDL < 40 mg/dL HIGH Serum or plasma total choles terol/high density lipoprotein (HDL) cholesterol mass ratOrdered By: Carine Thompson on 02-18-2023 Cholesterol.total/Chol esterol in HDL [Mass ratio] 3.4 {ratio} <5.0 [facility] Sodium [Moles/volume] in Ser um or PlasmaOrdered By: Carine Thompson on 02-18-2023 Sodium [Moles/Vol] 135 mmol/L 136-145 [facility] Triglyceride [Mass/volume] i n Serum or PlasmaOrdered By: Carine Thompson on 02-18-2023 Triglyceride [Mass/Vol] 90 mg/dL 0-149 [facility] Comment on above: TRIG ATP III CLASSIF ICATIONTRIG less than 150 mg/dL NormalTRIG 150-199 mg/dL Borderline highTRIG 200-500 mg/dL High TRIG greater than 500 mg/dL Very highStandard traceable to the Center for Disease Conrtrol and Prevention (CDC) test method. Troponin I High Sensitivityo n 02-18-2023 Troponin I High Sensitivity 41924.0 pg/mL Off scale high 0.0-15.0 [facility] Comment on above: Result Comment: Crit ical Result I_TnIHS_d:61966.0 Called to and read back by: JAMES MORENO at: 02/18/2023 02:00:10 by:JOSSELINE PERFORMED BY: [place] [address] PATHOLOGIST SPOOL CLEANER NUPUR DEL CASTILLO M.D. Performed By: #### H S TROP #### [address] Troponin I.cardiac [Mass/vol ume] in Serum or Plasma by Detection limit <= 0.01 ng/Ordered By: Carine Thompson on 02-18-2023 Troponin I.cardiac DL <= 0.01 ng/mL [Mass/Vol] 81164.0 pg/mL 0.0-15.0 [facility] Comment on above: Critical Result I_Tn IHS_d:86384.0 Called to and read back by: JAMES MORENO at: 02/18/2023 02:00:10 by:JOSSELINE Urea nitrogen [Mass/volume] in Serum or PlasmaOrdered By: Carine Thompson on 02-18-2023 Urea nitrogen [Mass/Vol] 11 mg/dL 7-25 [facility] WBC Auto (Bld) [#/Vol]Ordere d By: Carine Thompson on 02-18-2023 WBC (Bld) [#/Vol] 5.3 10*3/uL 3.8-11.6 [facility] ECH echo transthoracicon ECH echo transthoracic [facility] [place] [address] Echocardiogram Signed Patient: Nancy Putnam MR#: [id number] 9 : 1940 Acct:[id number] Age/Sex: 82 / F ADM Date: 02/17/23 Loc: Room: [address] [place] [address] Type: ADM IN Attending Dr: Carine Thompson MD Ordering Provider: Carine Thompson MD Date of Service: 02/17/2311/02/1324 [facility] echo transthoracic: MS Copies to: Zamzam Robert MD, [facility] Carine Thompson MD : 1940 Gender: Female (MM/DD/YYYY) Age: 82 Years Ordering Physician: Carine Thompson Height: 61.81 in Weight: 131.814 lb Performed By: Gabriela Landry [facility] BSA: 1.60 m2 BP: 174 / 81 mmHg HR: 69 bpm Reason For Study: MS History: No cardiac history per patient + + Interpretation Summary The left ventricular size, thickness and function are normal Ejection Fraction = 65-70%. Mitral valve annulus tissue Doppler imaging is consistent with elevated left atrial pressure. Mild valvular aortic stenosis. Severe calcification of the posterior MV leaflet with no stenosis but with mild regurgitation There is mild tricuspid regurgitation. The right ventricular systolic pressure is 45 mmHg. Procedure/Quality: A two-dimensional transthoracic echocardiogram with color flow and Doppler was performed. The study was technically good in quality. Left Ventricle: The left ventricular size, thickness and function are normal. Ejection Fraction = 65-70%. Mitral valve annulus tissue Doppler imaging is consistent with elevated left atrial pressure. Left Atrium: The left atrium appears normal in size. The atrial septum appears normal. Right Ventricle: The right ventricular size, thickness and function are normal. Aortic Valve: The aortic valve is trileaflet. The aortic valve is moderately calcified. Mild valvular aortic stenosis. Mitral Valve: Severe calcification of the posterior MV leaflet with no stenosis but with mild regurgitation. Tricuspid Valve: The tricuspid valve is normal. There is mild tricuspid regurgitation. The right ventricular systolic pressure is 45 mmHg. Pulmonic Valve: The pulmonic valve leaflets are thin and pliable; valve motion is normal. Arteries: The aortic root is normal size. Pericardium/Pleura: No pericardial effusion seen. There is no pleural effusion. IVC/Hepatic Veins: The IVC is normal in size with an inspiratory collapse of greater then 50%, suggesting normal right atrial pressure. Miscellaneous: No thrombus, vegetation or mass is seen. MMode/2D Measurements Calculations IVSd (0.7-1.1 cm): 1.12 cm LVIDd (3.7-5.4 cm): 3.3 cm LVPWd (0.7-1.1 cm): 0.98 cm LVIDs (2.3-3.6 cm): 1.69 cm LA dimension (2.3-4.0 cm): 2.7 cm Ao root diam (2.0-3.2 cm): 3.0 cm FS: 48.7 % Ao root area: 7.2 cm2 EDV(Teich): 43.8 ml LVOT diam: 1.83 cm ESV(Teich): 8.3 ml LVOT area: 2.6 cm2 EF(Teich): 81.2 % LAV(MOD-sp2): 20.9 ml LAV(MOD-sp4): 15.2 ml LA A2 area: 9.7 cm2 LA A4 area: 8.6 cm2 LA length (vol): 3.6 cm LA vol: 19.3 ml LA vol index: 12.1 ml/m2 Doppler Measurements Calculations MV E max justice: 121.0 cm/sec Ao V2 max: 294.3 cm/sec MV A max justice: 136.5 cm/sec Ao max P.6 mmHg MR max justice: 536.0 cm/sec Ao mean P.1 mmHg MV dec time: 0.23 sec Ao V2 mean: 224.1 cm/sec MV dec slope: 536.3 cm/sec?? Ao V2 VTI: 73.1 cm E/E' lat: 17.0 KELLY(I,D): 0.67 cm2 E/E' med: 21.9 KELLY(V,D): 0.60 cm2 AI P1/2t: 592.9 msec TV max P.0 mmHg LV V1 max: 66.5 cm/sec TR max justice: 298.6 cm/sec LV V1 max P.77 mmHg TR max P.7 mmHg LV V1 mean: 50.4 cm/sec RAP systole: 3.0 mmHg LV V1 mean P.01 mmHg LV V1 VTI: 18.6 cm + + + + + : Electronically signed : : : : by: ZAMZAM Gutierrez. : : MD CECILIO, : : FACC : : : : on: 02/17/2023, 10:53 : : PM : Transcribed By: SCV Performed At: 02/17/23 5813 Signed By: Zamzam Robert MD, FACC 02/17/23 7951 Normal [facility] Troponin I High Sensitivityo n 02-17-2023 Troponin I High Sensitivity 8318.9 pg/mL Off scale high 0.0-15.0 [facility] Comment on above: Result Comment: Crit ical Result : Called to and read back by: BISI MCKINNEY at: 02/17/2023 16:05:53 by:DORETHA PERFORMED BY: [place] [address] PATHOLOGIST SPOOL CLEANER NUPUR DEL CASTILLO M.D. Performed By: #### H S TROP #### [place] [id number] [facility] Outside Recordson 08-26-2019 Outside Records [id number]#[address] Lab - Other Lab Result[facility] Lab - Other Lab Results [id number]#[address] [place] [address] Outside [facility] 05-20-2019 Outside Records [id number]#[address] Patient Provided Health Data on 05-20-2019 Patient Provided Health Data [id number]#1.00[facility] Outside [facility] 05-03-2019 Outside Records [id number]#[address] [place] [address] ECHOCARDIOGRAMon 02-01-2019 APPR DULCE MARIA REPORT Conclusion Normal LV size and function, estimated EF 60%. Systolic function has improved from prior EF 40-45% in 09/2018. Normal RV size and function. Calcified AV with mild and mild AI. MV and TV not fully interrogated as this was limited study. Moderate MAC, Left Ventricle The left ventricle is small. Left ventricular systolic function is normal. The septal thickness is mildly increased. There is normal LV segmental wall motion. The diastolic function was not assessed. LVEF is 60%. Right Ventricle The right ventricle is normal size. The right ventricular systolic function is normal. There is normal right ventricular wall thickness. Atria The left atrium is small. The right atrium size is normal. Aortic Valve Aortic valve is calcified. Mild aortic stenosis. Mild aortic regurgitation. Mitral Valve Mitral valve leaflets are thickened. Moderate mitral annular calcification. No evidence of mitral valve stenosis. Trace mitral regurgitation. Tricuspid Valve The tricuspid valve is not well visualized. Not assessed Pulmonic Valve Pulmonic valve is not well visualized. Great Vessels The aortic root size is normal. The ascending aorta size is normal. Pericardium There is no pericardial effusion. EXAM: Limited 2D, Doppler, and color-flow Echocardiogram 2D Dimensions IVSd 1.25 cm F: 0.6-1.0 LVEF (Visual) 81.36 % PWd 1.03 cm F: 0.6 - 1.0 LVEF (Thomas's) 55.69 % F: 54 - 74 LVDd 3.75 cm F: 3.9 - 5.3 EF AP4-a2DQ 59.29 % LVDs 1.90 cm F: 2.2 - 3.5 EF AP2-a2DQ 58.35 % Aortic Root 3.01 cm F: 2.7 - 3.3 EF BP-a2DQ 55.69 % Aortic Root Index 1.8 cm/m2 LV Volume 50.52 mL F: 46 - 106 Ascending Aorta 3.03 cm F: 2.3 - 3.1 LV Volume Index 30.25 mL/m2 F: 29 - 61 Ascending Aorta Index: 1.8 cm/m2 LA Volume Left Atrium 2.68 cm F: 2.7 - 3.8 RVID Base (AP4) 2.02 cm (M/F) 2.5-4.1 LVOT 2.01 cm (M/F) 1.5-2.5 Aortic Valve LVOT Max 0.88 (0.7-1.1 m/s) LVOT VTI 22.03 cm AV DI 0.42 (>0.25) AoV Peak Justice. 1.91 (0.5-1.3 m/s) AI PHT 568.75 ms AV Vmean 1.56 m/s AO Peak GR. 14.57 mmHg AO Mean GR. 10.15 (<5 mmHg) AO VTI 52.70 (18-25 cm) KELLY (VTI) 1.33 (2.5-4.5 cm2) AR Peak Gr. 88.63 mmHg AR Decel [place] 2.40 m/s2 Tricuspid Valve RAP Estimate 3.00 mmHg [facility] Shakeel, Andrea - 02/01/2019 3:04 PM EST APPROVED REPORT Conclusion Normal LV size and function, estimated EF 60%. Systolic function has improved from prior EF 40-45% in 09/2018. Normal RV size and function. Calcified AV with mild and mild AI. MV and TV not fully interrogated as this was limited study. Moderate MAC, Left Ventricle The left ventricle is small. Left ventricular systolic function is normal. The septal thickness is mildly increased. There is normal LV segmental wall motion. The diastolic function was not assessed. LVEF is 60%. Right Ventricle The right ventricle is normal size. The right ventricular systolic function is normal. There is normal right ventricular wall thickness. Atria The left atrium is small. The right atrium size is normal. Aortic Valve Aortic valve is calcified. Mild aortic stenosis. Mild aortic regurgitation. Mitral Valve Mitral valve leaflets are thickened. Moderate mitral annular calcification. No evidence of mitral valve stenosis. Trace mitral regurgitation. Tricuspid Valve The tricuspid valve is not well visualized. Not assessed Pulmonic Valve Pulmonic valve is not well visualized. Great Vessels The aortic root size is normal. The ascending aorta size is normal. Pericardium There is no pericardial effusion. EXAM: Limited 2D, Doppler, and color-flow Echocardiogram 2D Dimensions IVSd 1.25 cm F: 0.6-1.0LVEF (Visual)81.36 % PWd 1.03 cm F: 0.6 - 1.0LVEF (Thomas's)55.69 % F: 54 - 74 LVDd 3.75 cm F: 3.9 - 5.3EF AP4-a2DQ59.29 % LVDs 1.90 cm F: 2.2 - 3.5EF AP2-a2DQ58.35 % Aortic Root 3.01 cm F: 2.7 - 3.3EF BP-a2DQ55.69 % Aortic Root Index1.8 cm/m2LV Onfjtg98.52 mL F: 46 - 106 Ascending Aorta 3.03 cm F: 2.3 - 3.1LV Volume Index30.25 mL/m2 F: 29 - 61 Ascending Aorta Index: 1.8 cm/m2LA Volume Left Atrium 2.68 cm F: 2.7 - 3.8RVID Base (AP4)2.02 cm (M/F) 2.5-4.1 LVOT2.01 cm (M/F) 1.5-2.5 Aortic Valve LVOT Max0.88 (0.7-1.1 m/s)LVOT VTI22.03 cm AV DI0.42 (>0.25)AoV Peak Justice.1.91 (0.5-1.3 m/s) AI TJH771.75 msAV Vmean 1.56 m/s AO Peak GR.14.57 mmHgAO Mean GR.10.15 (<5 mmHg) AO VTI52.70 (18-25 cm)KELLY (VTI)1.33 (2.5-4.5 cm2) AR Peak Gr.88.63 mmHgAR Decel Slope2.40 m/s2 Tricuspid Valve RAP Estimate3.00 mmHg [facility] BASIC METABOLIC PANELon 07- Anion gap [Moles/Vol] 7 mmol/L Low [facility] Calcium [Mass/Vol] 8.3 mg/dL Low [facility] Chloride [Moles/Vol] 103 mmol/L [facility] CO2 [Moles/Vol] 24 mmol/L [facility] Creatinine [Mass/Vol] 0.79 mg/dL [facility] GFR/1.73 sq M predicted among blacks MDRD (S/P/Bld) [Vol rate/Area] mL/min/{1.73_m2} ml/min/1.7 3sq.m [facility] GFR/1.73 sq M predicted among non-blacks MDRD (S/P/Bld) [Vol rate/Area] Average GFR for 70+ years old = 75. [facility] Comment on above: Chronic Kidney disea se, GFR = <60. Kidney failure, GFR = <15. The GFR estimate is not adjusted for extreme body surface area or acute process, nor has it been validated for women or ethnic groups other than and . GFR/1.73 sq M predicted among non-blacks MDRD (S/P/Bld) [Vol rate/Area] mL/min/{1.73_m2} ml/min/1.7 3sq.m [facility] Glucose post fast [Mass/Vol] 109 mg/dL High [facility] Comment on above: NORMAL <100 mg/dL PREDIABETES 101-126 mg/dL DIABETES 126 mg/dL or higher Potassium [Moles/Vol] 4.4 mmol/L [facility] Sodium [Moles/Vol] 134 mmol/L Low [facility] Urea nitrogen [Mass/Vol] 20 mg/dL [facility] BMP FASTINGon 10-02-2018 Creatinine [Mass/Vol] 0.79 mg/dL Normal 0.52-1.04 [facility] Comment on above: Performed By: #### I TROT #### Testing performed at [address] [address] EST. GFR, >60 Normal [facility] Comment on above: Performed By: #### I TROT #### Testing performed at [address] [address] EST. GFR,Non >60 Normal [facility] Comment on above: Performed By: #### I TROT #### Testing performed at [address] [address] GFR/1.73 sq M predicted among non-blacks MDRD (S/P/Bld) [Vol rate/Area] Average GFR for 70+ years old = 75. Normal [facility] Comment on above: Result Comment: [employer] tri Kidney disease, GFR = <60. Kidney failure, GFR = <15. The GFR estimate is not adjusted for extreme body surface area or acute process, nor has it been validated for women or ethnic groups other than and . Performed By: #### I TROT #### Testing performed at [address] [address] Urea nitrogen [Mass/Vol] 20 mg/dL Normal 7-20 [facility] Comment on above: Performed By: #### I TROT #### Testing performed at [address] [address] Anion gap [Moles/Vol] 7 mmol/L Low 8-16 [facility] Comment on above: Performed By: #### I TROT #### Testing performed at [address] [address] Calcium [Mass/Vol] 8.3 mg/dL Low 8.4-10.2 [facility] Comment on above: Performed By: #### I TROT #### Testing performed at [address] [address] Chloride [Moles/Vol] 103 mmol/L Normal 98-107 [facility] Comment on above: Performed By: #### I TROT #### Testing performed at [address] [address] CO2 [Moles/Vol] 24 mmol/L Normal 22-30 [facility] Comment on above: Performed By: #### I TROT #### Testing performed at [address] [address] Glucose [Mass/Vol] 109 mg/dL High 70-100 [facility] Comment on above: Result Comment: NORMAL <100 mg/dL PREDIABETES 101-126 mg/dL DIABETES 126 mg/dL or higher Performed By: #### I TROT #### Testing performed at [address] [address] Potassium [Moles/Vol] 4.4 mmol/L Normal 3.5-5.1 [facility] Comment on above: Performed By: #### I TROT #### Testing performed at [address] [address] Sodium [Moles/Vol] 134 mmol/L Low 136-145 [facility] Comment on above: Performed By: #### I TROT #### Testing performed at [address] [place] [address] CBCon 10-02-2018 ABSOLUTE BAS 0.0 X10 Normal [facility] Comment on above: Performed By: #### I TROT #### Testing performed at [address] [place] [address] ABSOLUTE EOS 0.10 X10 Normal [facility] Comment on above: Performed By: #### I TROT #### Testing performed at [address] [address] ABSOLUTE NEUTROPHIL COUNT 3.6 x10 Normal 1.0-7.0 [facility] Comment on above: Performed By: #### I TROT #### Testing performed at [address] [address] Basophils/100 WBC (Bld) 0.5 % Normal 0.0-2.0 [facility] Comment on above: Performed By: #### I TROT #### Testing performed at [address] [place] [address] DTYPE AUTO DIFF Normal [facility] Comment on above: Performed By: #### I TROT #### Testing performed at [address] [address] Eosinophils/100 WBC (Bld) 1.1 % Normal 0.0-11.0 [facility] Comment on above: Performed By: #### I TROT #### Testing performed at [address] [address] Lymphocytes (Bld) [#/Vol] 1.20 X10 Normal [facility] Comment on above: Performed By: #### I TROT #### Testing performed at [address] [address] Lymphocytes/100 WBC (Bld) 21.2 % Normal 20.0-55.0 [facility] Comment on above: Performed By: #### I TROT #### Testing performed at [address] [address] Monocytes (Bld) [#/Vol] 0.8 X10 Normal [facility] Comment on above: Performed By: #### I TROT #### Testing performed at [address] [address] Monocytes/100 WBC (Bld) 13.3 % High 0.0-10.0 [facility] Comment on above: Performed By: #### I TROT #### Testing performed at [address] [address] Neutrophils/100 WBC (Bld) 63.9 % Normal 37.0-75.0 [facility] Comment on above: Performed By: #### I TROT #### Testing performed at [address] [address] Erythrocyte distribution width (RBC) [Ratio] 13.4 % Normal 11.5-14.5 [facility] Comment on above: Performed By: #### I TROT #### Testing performed at [address] [address] Hematocrit (Bld) [Volume fraction] 43.2 % Normal 36.0-48.0 [facility] Comment on above: Performed By: #### I TROT #### Testing performed at [address] [address] Hemoglobin (Bld) [Mass/Vol] 14.2 g/dL Normal 12.0-16.0 [facility] Comment on above: Performed By: #### I TROT #### Testing performed at [address] [address] MCH (RBC) [Entitic mass] 33.0 pg Normal 26.0-35.0 [facility] Comment on above: Performed By: #### I TROT #### Testing performed at [address] [address] MCHC (RBC) [Mass/Vol] 32.8 g/dL Normal 27.0-37.0 [facility] Comment on above: Performed By: #### I TROT #### Testing performed at [address] [address] MCV (RBC) [Entitic vol] 100.5 fL High 80.0-100.0 [facility] Comment on above: Performed By: #### I TROT #### Testing performed at [address] [address] Platelet mean volume (Bld) [Entitic vol] 8.9 fL Normal 7.4-11.0 [facility] Comment on above: Performed By: #### I TROT #### Testing performed at [address] [address] Platelets (Bld) [#/Vol] 166 /cmm Normal 130.0-400. 0 [facility] Comment on above: Performed By: #### I TROT #### Testing performed at [address] [address] RBC (Bld) [#/Vol] 4.30 /cmm Normal 4.0-5.4 [facility] Comment on above: Performed By: #### I TROT #### Testing performed at [address] [address] WBC (Bld) [#/Vol] 5.7 /cmm Normal 3.6-11.0 [facility] Comment on above: Performed By: #### I TROT #### Testing performed at [address] [address] CBC, EDIF, PLATELETon 2018 ABSOLUTE BASOPHIL COUNT 0.0 X10 [facility] Basophils/100 WBC (Bld) 0.5 % 0 - 2 % [facility] Differential cell count method Nom (Bld) AUTO DIFF % [facility] Eosinophils (Bld) [#/Vol] 0.10 10*3/uL X10 [facility] Eosinophils/100 WBC (Bld) 1.1 % 0 - 11 % [facility] Erythrocyte distribution width (RBC) [Ratio] 13.4 % 11.5 - 14.5 % [facility] Hematocrit (Bld) [Volume fraction] 43.2 % 36 - 48 % [facility] Hemoglobin (Bld) [Mass/Vol] 14.2 g/dL [facility] Lymphocytes (Bld) [#/Vol] 1.20 10*3/uL X10 [facility] Lymphocytes/100 WBC (Bld) 21.2 % 20 - 55 % [facility] MCH (RBC) [Entitic mass] 33.0 pg 26 - 35 PG [facility] MCHC (RBC) [Mass/Vol] 32.8 g/dL [facility] MCV (RBC) [Entitic vol] 100.5 fL High [facility] Monocytes (Bld) [#/Vol] 0.8 10*3/uL X10 [facility] Monocytes/100 WBC (Bld) 13.3 % High 0 - 10 % [facility] Neutrophils (Bld) [#/Vol] 3.6 10*3/uL [facility] Neutrophils/100 WBC (Bld) 63.9 % 37 - 75 % [facility] Platelet mean volume (Bld) [Entitic vol] 8.9 fL [facility] Platelets (Bld) [#/Vol] 166 10*3/uL [facility] RBC (Bld) [#/Vol] 4.30 10*6/uL [facility] WBC (Bld) [#/Vol] 5.7 10*3/uL [facility] LIPID PANEL W CALCULATED LDL on 10-02-2018 Cholesterol [Mass/Vol] 136 mg/dL [facility] Cholesterol in HDL [Mass/Vol] 43 mg/dL [facility] Cholesterol in LDL [Mass/Vol] 80 mg/dL [facility] Cholesterol in VLDL [Mass/Vol] 13 mg/dL [facility] Cholesterol.total/Chol esterol in HDL [Mass ratio] 3.16 {ratio} RATIO [facility] Comment on above: RISK TOTAL/HDL RATIO MEN WOMEN 1/2 AVERAGE 3.43 3.27 AVERAGE 4.97 4.44 2X AVERAGE 9.55 7.05 3X AVERAGE 23.99 11.04 Triglyceride [Mass/Vol] 67 mg/dL <150 MG/DL [facility] LIPID PROFILEon 10-02-2018 Cholesterol [Mass/Vol] 136 mg/dL Normal 100-199 [facility] Comment on above: Performed By: #### A CBC, PT, CMPF #### Testing performed at [address] [address] Cholesterol in HDL [Mass/Vol] 43 mg/dL Normal 40-60 [facility] Comment on above: Performed By: #### A CBC, PT, CMPF #### Testing performed at [address] [address] Cholesterol in LDL [Mass/Vol] 80 mg/dL Normal 0-100 [facility] Comment on above: Performed By: #### A CBC, PT, CMPF #### Testing performed at [address] [address] Cholesterol in VLDL [Mass/Vol] 13 mg/dL Normal 5.0-25.0 [facility] Comment on above: Performed By: #### A CBC, PT, CMPF #### Testing performed at [address] [address] Cholesterol.total/Chol esterol in HDL [Mass ratio] 3.16 {ratio} Normal [facility] Comment on above: Result Comment: RISK TOTAL/HDL RATIO MEN WOMEN 1/2 AVERAGE 3.43 3.27 AVERAGE 4.97 4.44 2X AVERAGE 9.55 7.05 3X AVERAGE 23.99 11.04 Performed By: #### A CBC, PT, CMPF #### Testing performed at [address] [address] Triglyceride [Mass/Vol] 67 mg/dL Normal <150 [facility] Comment on above: Performed By: #### A CBC, PT, CMPF #### Testing performed at [address] [address] Otheron 10-02-2018 Interpretation and review of laboratory results Abnormal [facility] CBCon 10-01-2018 ABSOLUTE BAS 0.0 X10 Normal [facility] Comment on above: Performed By: #### I TROT #### Testing performed at [address] [address] ABSOLUTE EOS 0.20 X10 Normal [facility] Comment on above: Performed By: #### I TROT #### Testing performed at [address] [address] ABSOLUTE NEUTROPHIL COUNT 2.9 x10 Normal 1.0-7.0 [facility] Comment on above: Performed By: #### I TROT #### Testing performed at [address] [address] Basophils/100 WBC (Bld) 0.6 % Normal 0.0-2.0 [facility] Comment on above: Performed By: #### I TROT #### Testing performed at [address] [address] DTYPE AUTO DIFF Normal [facility] Comment on above: Performed By: #### I TROT #### Testing performed at [address] [address] Eosinophils/100 WBC (Bld) 3.1 % Normal 0.0-11.0 [facility] Comment on above: Performed By: #### I TROT #### Testing performed at [address] [address] Lymphocytes (Bld) [#/Vol] 2.00 X10 Normal [facility] Comment on above: Performed By: #### I TROT #### Testing performed at [address] [address] Lymphocytes/100 WBC (Bld) 34.9 % Normal 20.0-55.0 [facility] Comment on above: Performed By: #### I TROT #### Testing performed at [address] [address] Monocytes (Bld) [#/Vol] 0.6 X10 Normal [facility] Comment on above: Performed By: #### I TROT #### Testing performed at [address] [address] Monocytes/100 WBC (Bld) 10.2 % High 0.0-10.0 [facility] Comment on above: Performed By: #### I TROT #### Testing performed at [address] [address] Neutrophils/100 WBC (Bld) 51.2 % Normal 37.0-75.0 [facility] Comment on above: Performed By: #### I TROT #### Testing performed at [address] [address] Erythrocyte distribution width (RBC) [Ratio] 12.9 % Normal 11.5-14.5 [facility] Comment on above: Performed By: #### I TROT #### Testing performed at [address] [address] Hematocrit (Bld) [Volume fraction] 40.3 % Normal 36.0-48.0 [facility] Comment on above: Performed By: #### I TROT #### Testing performed at [address] [address] Hemoglobin (Bld) [Mass/Vol] 13.8 g/dL Normal 12.0-16.0 [facility] Comment on above: Performed By: #### I TROT #### Testing performed at [address] [address] MCH (RBC) [Entitic mass] 32.9 pg Normal 26.0-35.0 [facility] Comment on above: Performed By: #### I TROT #### Testing performed at [address] [address] MCHC (RBC) [Mass/Vol] 34.2 g/dL Normal 27.0-37.0 [facility] Comment on above: Performed By: #### I TROT #### Testing performed at [address] [address] MCV (RBC) [Entitic vol] 96.1 fL Normal 80.0-100.0 [facility] Comment on above: Performed By: #### I TROT #### Testing performed at [address] [address] Platelet mean volume (Bld) [Entitic vol] 9.1 fL Normal 7.4-11.0 [facility] Comment on above: Performed By: #### I TROT #### Testing performed at [address] [address] Platelets (Bld) [#/Vol] 177 /cmm Normal 130.0-400. 0 [facility] Comment on above: Performed By: #### I TROT #### Testing performed at [address] [address] RBC (Bld) [#/Vol] 4.19 /cmm Normal 4.0-5.4 [facility] Comment on above: Performed By: #### I TROT #### Testing performed at [address] [address] WBC (Bld) [#/Vol] 5.7 /cmm Normal 3.6-11.0 [facility] Comment on above: Performed By: #### I TROT #### Testing performed at [address] [address] CBC, EDIF, PLATELETon 2018 ABSOLUTE BASOPHIL COUNT 0.0 X10 [facility] Basophils/100 WBC (Bld) 0.6 % 0 - 2 % [facility] Differential cell count method Nom (Bld) AUTO DIFF % [facility] Eosinophils (Bld) [#/Vol] 0.20 10*3/uL X10 [facility] Eosinophils/100 WBC (Bld) 3.1 % 0 - 11 % [facility] Erythrocyte distribution width (RBC) [Ratio] 12.9 % 11.5 - 14.5 % [facility] Hematocrit (Bld) [Volume fraction] 40.3 % 36 - 48 % [facility] Hemoglobin (Bld) [Mass/Vol] 13.8 g/dL [facility] Interpretation and review of laboratory results Abnormal [facility] Lymphocytes (Bld) [#/Vol] 2.00 10*3/uL X10 [facility] Lymphocytes/100 WBC (Bld) 34.9 % 20 - 55 % [facility] MCH (RBC) [Entitic mass] 32.9 pg 26 - 35 PG [facility] MCHC (RBC) [Mass/Vol] 34.2 g/dL [facility] MCV (RBC) [Entitic vol] 96.1 fL [facility] Monocytes (Bld) [#/Vol] 0.6 10*3/uL X10 [facility] Monocytes/100 WBC (Bld) 10.2 % High 0 - 10 % [facility] Neutrophils (Bld) [#/Vol] 2.9 10*3/uL [facility] Neutrophils/100 WBC (Bld) 51.2 % 37 - 75 % [facility] Platelet mean volume (Bld) [Entitic vol] 9.1 fL [facility] Platelets (Bld) [#/Vol] 177 10*3/uL [facility] RBC (Bld) [#/Vol] 4.19 10*6/uL [facility] WBC (Bld) [#/Vol] 5.7 10*3/uL [facility] CMP FASTINGon 10-01-2018 A:G RATIO 1.7 RATIO Normal 1.3-2.2 [facility] Comment on above: Performed By: #### I TROT #### Testing performed at [address] [address] Albumin [Mass/Vol] 4.3 G/dl Normal 3.5-5.0 [facility] Comment on above: Performed By: #### I TROT #### Testing performed at [address] [address] ALP [Catalytic activity/Vol] 66 U/L Normal 38-126 [facility] Comment on above: Performed By: #### I TROT #### Testing performed at [address] [address] ALT [Catalytic activity/Vol] 44 U/L Normal 14-54 [facility] Comment on above: Performed By: #### I TROT #### Testing performed at [address] [address] AST [Catalytic activity/Vol] 55 U/L High 15-41 [facility] Comment on above: Performed By: #### I TROT #### Testing performed at [address] [address] Bilirubin [Mass/Vol] 1.0 mg/dL Normal 0.2-1.2 [facility] Comment on above: Performed By: #### I TROT #### Testing performed at [address] [address] Creatinine [Mass/Vol] 0.68 mg/dL Normal 0.52-1.04 [facility] Comment on above: Performed By: #### I TROT #### Testing performed at [address] [address] EST. GFR, >60 Normal [facility] Comment on above: Performed By: #### I TROT #### Testing performed at [address] [address] EST. GFR,Non >60 Normal [facility] Comment on above: Performed By: #### I TROT #### Testing performed at [address] [address] GFR/1.73 sq M predicted among non-blacks MDRD (S/P/Bld) [Vol rate/Area] Average GFR for 70+ years old = 75. Normal [facility] Comment on above: Result Comment: [employer] tri Kidney disease, GFR = <60. Kidney failure, GFR = <15. The GFR estimate is not adjusted for extreme body surface area or acute process, nor has it been validated for women or ethnic groups other than and . Performed By: #### I TROT #### Testing performed at [address] [address] Protein [Mass/Vol] 6.9 g/dL Normal 6.3-8.2 [facility] Comment on above: Performed By: #### I TROT #### Testing performed at [address] [address] Urea nitrogen [Mass/Vol] 19 mg/dL Normal 7-20 [facility] Comment on above: Performed By: #### I TROT #### Testing performed at [address] [address] Calcium [Mass/Vol] 8.8 mg/dL Normal 8.4-10.2 [facility] Comment on above: Performed By: #### I TROT #### Testing performed at [address] [address] Chloride [Moles/Vol] 99 mmol/L Normal 98-107 [facility] Comment on above: Performed By: #### I TROT #### Testing performed at [address] [address] CO2 [Moles/Vol] 22 mmol/L Normal 22-30 [facility] Comment on above: Performed By: #### I TROT #### Testing performed at [address] [address] Glucose [Mass/Vol] 117 mg/dL High 70-100 [facility] Comment on above: Result Comment: NORMAL <100 mg/dL PREDIABETES 101-126 mg/dL DIABETES 126 mg/dL or higher Performed By: #### I TROT #### Testing performed at [address] [address] Potassium [Moles/Vol] 4.2 mmol/L Normal 3.5-5.1 [facility] Comment on above: Performed By: #### I TROT #### Testing performed at [address] [address] Sodium [Moles/Vol] 134 mmol/L Low 136-145 [facility] Comment on above: Performed By: #### I TROT #### Testing performed at [address] [place] [address] COMPREHENSIVE METABOLIC PANE Cameron 10-01-2018 Albumin [Mass/Vol] 4.3 G/dl 3.5 - 5 G/dl [facility] Albumin/Globulin [Mass ratio] 1.7 {ratio} [facility] ALP [Catalytic activity/Vol] 66 U/L [facility] ALT [Catalytic activity/Vol] 44 U/L [facility] AST [Catalytic activity/Vol] 55 U/L High [facility] Bilirubin [Mass/Vol] 1.0 mg/dL [facility] Calcium [Mass/Vol] 8.8 mg/dL [facility] Chloride [Moles/Vol] 99 mmol/L [employer] [facility] CO2 [Moles/Vol] 22 mmol/L [facility] [employer] Creatinine [Mass/Vol] 0.68 mg/dL [facility] [employer] GFR/1.73 sq M predicted among blacks MDRD (S/P/Bld) [Vol rate/Area] mL/min/{1.73_m2} ml/min/1.7 3sq.m [facility] [employer] GFR/1.73 sq M predicted among non-blacks MDRD (S/P/Bld) [Vol rate/Area] Average GFR for 70+ years old = 75. [facility] Comment on above: Chronic Kidney disea se, GFR = <60. Kidney failure, GFR = <15. The GFR estimate is not adjusted for extreme body surface area or acute process, nor has it been validated for women or ethnic groups other than and . GFR/1.73 sq M predicted among non-blacks MDRD (S/P/Bld) [Vol rate/Area] mL/min/{1.73_m2} ml/min/1.7 3sq.m [facility] [employer] [facility] Glucose post fast [Mass/Vol] 117 mg/dL High [facility] Comment on above: NORMAL <100 mg/dL PREDIABETES 101-126 mg/dL DIABETES 126 mg/dL or higher Potassium [Moles/Vol] 4.2 mmol/L [facility] [employer] Protein [Mass/Vol] 6.9 g/dL [facility] [employer] Sodium [Moles/Vol] 134 mmol/L Low [facility] [employer] Urea nitrogen [Mass/Vol] 19 mg/dL [facility] CATH PRO [facility] 10-01-2018 Addendum by Brenda Putnam MD on 10/01/2018 10:56 PM [facility] for chest pressure, dyspnea, ECG changes and + troponin Of note: Pt has severe life stressor with current divorce proceedings with longtime hisband. Findings: RCA: minimal nonobstructive disease LAD: Mild 20-30% disease. D1: 65% stenosis with ANGEL III flow Ostial OM1 85% extending into proximal portion OM1 that is approximately 2.25-2.5 mm vessel LV gram: Takotsubo pattern, EF 35-40%, LVEDP 17-24 mm/Hg. Recommendations: PCI not recommended as OM1 not c/w anterior WMA findings Medical treatment DAPT Betablocker [place] for DC within 24 hrs JUAN JOSE Putnam MD 3 weeks DC on Plavix Follow OP symptoms and future EF assessment Moderate sedation was performed and monitored for the duration of the procedure under the direct supervision of the phyaician for a total time of 49 minutes. Please refer to the cardiac catheterization log for information on medications given during the procedure. [facility] for chest pressu re, dyspnea, ECG changes and + troponin Of note: Pt has severe life stressor with current divorce proceedings with longtime hisband. Findings: RCA: minimal nonobstructive disease LAD: Mild 20-30% disease. D1: 65% stenosis with ANGEL III flow Ostial OM1 85% lwading into OM1 that is approximately 2.25-2.5 mm vessel LV gram: Takotsubo pattern, EF 35-40%, LVEDP 17-24 mm/Hg. Recommendations: PCI not recommended as OM1 not c/w anterior WMA findings Medical treatment DAPT Betablocker [place] for DC within 24 hrs JUAN JOSE Putnam MD 3 weeks DC on Plavix Follow OP symptoms and future EF assessment Moderate sedation was performed and monitored for the duration of the procedure under the direct supervision of the phyaician for a total time of 49 minutes. Please refer to the cardiac catheterization log for information on medications given during the procedure. [facility] Otheron 10-01-2018 Interpretation and review of laboratory results Abnormal [facility] PROTIMEon 10-01-2018 INR Coag (PPP) [Relative time] 1.08 {INR} Normal 0.88-1.12 [facility] Comment on above: Result Comment: 2.0- 3.0 THERAPEUTIC RANGE 2.5-3.5 PROSTHETIC VALVE RANGE Performed By: #### I TROT #### Testing performed at [address] [place] [address] PT Coag (PPP) [Time] 13.9 s Normal 11.6-14.0 [facility] Comment on above: Performed By: #### I TROT #### Testing performed at [address] [address] PROTIME-INRon 10-01-2018 INR Coag (PPP) [Relative time] 1.08 {INR} [facility] Comment on above: 2.0-3.0 THERAPEUTIC RANGE 2.5-3.5 PROSTHETIC VALVE RANGE PT Coag (PPP) [Time] 13.9 s [facility] PTTon 10-01-2018 aPTT Coag (Bld) [Time] 102.6 s High 23.2-34.5 [facility] Comment on above: Result Comment: CARDIAC AND PE/DVT THERAPUTIC RANGE 75-103 SEC VASCULAR/THREATENED LIMB THERAPUTIC RANGE 86-118 SEC Performed By: #### I TROT #### Testing performed at [address] [address] aPTT Coag (Bld) [Time] 177.5 s Critically high 23.2-34. 5 [facility] Comment on above: Result Comment: CARDIAC AND PE/DVT THERAPUTIC RANGE 75-103 SEC VASCULAR/THREATENED LIMB THERAPUTIC RANGE 86-118 SEC Result called to read back by: CHAPIS 10/01/2018 @ 06:31 by LAKIA Performed By: #### I TROT #### Testing performed at [address] [address] aPTT Coag (Bld) [Time] 102.6 s High [facility] Comment on above: CARDIAC AND PE/DVT THERAPUTIC RANGE 75-103 SEC VASCULAR/THREATENED LIMB THERAPUTIC RANGE 86-118 SEC Interpretation and review of laboratory results Abnormal [facility] aPTT Coag (Bld) [Time] 177.5 s Critically high [facility] Comment on above: CARDIAC AND PE/DVT THERAPUTIC RANGE 75-103 SEC VASCULAR/THREATENED LIMB THERAPUTIC RANGE 86-118 SEC Result called to read back by: CHAPIS 10/01/2018 @ 06:31 by LAKIA aPTT Coag (Bld) [Time] 106.5 s High 23.2-34.5 [facility] Comment on above: Result Comment: CARDIAC AND PE/DVT THERAPUTIC RANGE 75-103 SEC VASCULAR/THREATENED LIMB THERAPUTIC RANGE 86-118 SEC Performed By: #### I TROT #### Testing performed at [address] [address] CBC(NO DIFF)on 09-30-2018 Erythrocyte distribution width (RBC) [Ratio] 13.1 % Normal 11.5-14.5 [facility] Comment on above: Performed By: #### H EMOEthan [id number] ####Testing performed at [address] [address] Hematocrit (Bld) [Volume fraction] 37.7 % Normal 36.0-48.0 [facility] Comment on above: Performed By: #### Sulema SLAUGHTER [id number] ####Testing performed at [address] [address] Hemoglobin (Bld) [Mass/Vol] 12.8 g/dL Normal 12.0-16.0 [facility] Comment on above: Performed By: #### Sulema EMOEthan [id number] ####Testing performed at [address] [address] MCH (RBC) [Entitic mass] 32.9 pg Normal 26.0-35.0 [facility] Comment on above: Performed By: #### Sulema EMOEthan CHEM7F ####Testing performed at [address] [address] MCHC (RBC) [Mass/Vol] 33.9 g/dL Normal 27.0-37.0 [facility] Comment on above: Performed By: #### Sulema SLAUGHTER CHEM7F ####Testing performed at [address] [address] MCV (RBC) [Entitic vol] 97.0 fL Normal 80.0-100.0 [facility] Comment on above: Performed By: #### Sulema SLAUGHTER CHEM7F ####Testing performed at [address] [address] Platelet mean volume (Bld) [Entitic vol] 8.6 fL Normal 7.4-11.0 [facility] Comment on above: Performed By: #### Sulema EMOEthan CHEM7F ####Testing performed at [address] [address] Platelets (Bld) [#/Vol] 173 /cmm Normal 130.0-400. 0 [facility] Comment on above: Performed By: #### Sulema EMOEthan, CHEM7F ####Testing performed at [address] [address] RBC (Bld) [#/Vol] 3.88 /cmm Low 4.0-5.4 [facility] Comment on above: Performed By: #### H KASANDRA CHEM7F ####Testing performed at [address] [address] WBC (Bld) [#/Vol] 5.6 /cmm Normal 3.6-11.0 [facility] Comment on above: Performed By: #### H KASANDRA CHEM7F ####Testing performed at [address] [address] CBC,PLATELETSon 09-30-2018 Erythrocyte distribution width (RBC) [Ratio] 13.1 % 11.5 - 14.5 % [facility] Hematocrit (Bld) [Volume fraction] 37.7 % 36 - 48 % [facility] Hemoglobin (Bld) [Mass/Vol] 12.8 g/dL [facility] MCH (RBC) [Entitic mass] 32.9 pg 26 - 35 PG [facility] MCHC (RBC) [Mass/Vol] 33.9 g/dL [facility] MCV (RBC) [Entitic vol] 97.0 fL [facility] Platelet mean volume (Bld) [Entitic vol] 8.6 fL [facility] Platelets (Bld) [#/Vol] 173 10*3/uL [facility] RBC (Bld) [#/Vol] 3.88 10*6/uL Low [facility] WBC (Bld) [#/Vol] 5.6 10*3/uL [facility] CHEM 7 FASTINGon 09-30-2018 Creatinine [Mass/Vol] 0.88 mg/dL Normal 0.52-1.04 [facility] Comment on above: Performed By: #### H KASANDRA CHEM7F ####Testing performed at [address] [address] EST. GFR, >60 Normal [facility] Comment on above: Performed By: #### H EMOEthan CHEM7F ####Testing performed at [address] [address] EST. GFR,Non >60 Normal [facility] Comment on above: Performed By: #### H EMOG, CHEM7F ####Testing performed at [address] [address] GFR/1.73 sq M predicted among non-blacks MDRD (S/P/Bld) [Vol rate/Area] Average GFR for 70+ years old = 75. Normal [facility] Comment on above: Result Comment: [employer] tri Kidney disease, GFR = <60. Kidney failure, GFR = <15. The GFR estimate is not adjusted for extreme body surface area or acute process, nor has it been validated for women or ethnic groups other than and . Performed By: #### H EMOG, CHEM7F ####Testing performed at [address] [address] Urea nitrogen [Mass/Vol] 17 mg/dL Normal 7-20 [facility] Comment on above: Performed By: #### H EMOG, CHEM7F ####Testing performed at [address] [address] Chloride [Moles/Vol] 101 mmol/L Normal 98-107 [facility] Comment on above: Performed By: #### H EMOG, CHEM7F ####Testing performed at [address] [address] CO2 [Moles/Vol] 24 mmol/L Normal 22-30 [facility] Comment on above: Performed By: #### H EMOG, CHEM7F ####Testing performed at [address] [address] Glucose [Mass/Vol] 100 mg/dL Normal 70-100 [facility] Comment on above: Result Comment: NORMAL <100 mg/dL PREDIABETES 101-126 mg/dL DIABETES 126 mg/dL or higher Performed By: #### H EMOG, CHEM7F ####Testing performed at [address] [address] Potassium [Moles/Vol] 4.1 mmol/L Normal 3.5-5.1 [facility] Comment on above: Performed By: #### H EMOG, CHEM7F ####Testing performed at [address] [address] Sodium [Moles/Vol] 135 mmol/L Low 136-145 [facility] Comment on above: Performed By: #### H EMOG, CHEM7F ####[place] [address] CHEM 7 (LYTES,BUN,CREA,GLUC) on 09-30-2018 Chloride [Moles/Vol] 101 mmol/L [facility] CO2 [Moles/Vol] 24 mmol/L [facility] Creatinine [Mass/Vol] 0.88 mg/dL [facility] GFR/1.73 sq M predicted among blacks MDRD (S/P/Bld) [Vol rate/Area] mL/min/{1.73_m2} ml/min/1.7 3sq.m [facility] GFR/1.73 sq M predicted among non-blacks MDRD (S/P/Bld) [Vol rate/Area] Average GFR for 70+ years old = 75. [facility] Comment on above: Chronic Kidney disea se, GFR = <60. Kidney failure, GFR = <15. The GFR estimate is not adjusted for extreme body surface area or acute process, nor has it been validated for women or ethnic groups other than and . GFR/1.73 sq M predicted among non-blacks MDRD (S/P/Bld) [Vol rate/Area] mL/min/{1.73_m2} ml/min/1.7 3sq.m [facility] [employer] Glucose post fast [Mass/Vol] 100 mg/dL [facility] Comment on above: NORMAL <100 mg/dL PREDIABETES 101-126 mg/dL DIABETES 126 mg/dL or higher Potassium [Moles/Vol] 4.1 mmol/L [facility] Sodium [Moles/Vol] 135 mmol/L Low [facility] Urea nitrogen [Mass/Vol] 17 mg/dL [facility] ISTAT TROPONIN Ion 9 Troponin I.cardiac [Mass/Vol] 0.76 ng/mL Critically high 0-0.08 [facility] Comment on above: Result Comment: Resu lt called to read back by: GABRIELLA 09/30/2018 @ 11:26 by MAT Performed By: #### I TROT ####Testing performed at [place] [id number] Troponin I.cardiac [Mass/Vol] 1.19 ng/mL Critically high 0-0.08 [facility] Comment on above: Result Comment: Resu lt called to read back by: APRYL 09/30/2018 @ 05:34 by MAT Performed By: #### I TROT ####Testing performed at [address] [address] Troponin I.cardiac [Mass/Vol] 1.33 ng/mL Critically high 0-0.08 [facility] Comment on above: Result Comment: Resu lt called to read back by: ELSY NATION 09/30/2018 @ 00:48 by DAX Performed By: #### I TROT ####Testing performed at [address] [address] LIPID PANEL W CALCULATED LDL on 09-30-2018 Cholesterol [Mass/Vol] 160 mg/dL [facility] Cholesterol in HDL [Mass/Vol] 50 mg/dL [facility] Cholesterol in LDL [Mass/Vol] 88 mg/dL [facility] Cholesterol in VLDL [Mass/Vol] 22 mg/dL [facility] Cholesterol.total/Chol esterol in HDL [Mass ratio] 3.20 {ratio} RATIO [facility] Comment on above: RISK TOTAL/HDL RATIO MEN WOMEN 1/2 AVERAGE 3.43 3.27 AVERAGE 4.97 4.44 2X AVERAGE 9.55 7.05 3X AVERAGE 23.99 11.04 Triglyceride [Mass/Vol] 110 mg/dL <150 MG/DL [facility] LIPID PROFILEon 09-30-2018 Cholesterol [Mass/Vol] 160 mg/dL Normal 100-199 [facility] Comment on above: Performed By: #### I TROT #### Testing performed at [address] [address] Cholesterol in HDL [Mass/Vol] 50 mg/dL Normal 40-60 [facility] Comment on above: Performed By: #### I TROT #### Testing performed at [address] [address] Cholesterol in LDL [Mass/Vol] 88 mg/dL Normal 0-100 [facility] Comment on above: Performed By: #### I TROT #### Testing performed at [address] [address] Cholesterol in VLDL [Mass/Vol] 22 mg/dL Normal 5.0-25.0 [facility] Comment on above: Performed By: #### I TROT #### Testing performed at [address] [address] Cholesterol.total/Chol esterol in HDL [Mass ratio] 3.20 {ratio} Normal [facility] Comment on above: Result Comment: RISK TOTAL/HDL RATIO MEN WOMEN 1/2 AVERAGE 3.43 3.27 AVERAGE 4.97 4.44 2X AVERAGE 9.55 7.05 3X AVERAGE 23.99 11.04 Performed By: #### I TROT #### Testing performed at [address] [address] Triglyceride [Mass/Vol] 110 mg/dL Normal <150 [facility] Comment on above: Performed By: #### I TROT #### Testing performed at [address] [address] Otheron 09-30-2018 Interpretation and review of laboratory results Abnormal [facility] Interpretation and review of laboratory results Abnormal [facility] Interpretation and review of laboratory results Abnormal [facility] PTTon 09-30-2018 aPTT Coag (Bld) [Time] 106.5 s High AV [facility] Comment on above: CARDIAC AND PE/DVT THERAPUTIC RANGE 75-103 SEC VASCULAR/THREATENED LIMB THERAPUTIC RANGE 86-118 SEC Interpretation and review of laboratory results Abnormal [facility] a[facility] Coag (Bld) [Time] 120.2 s High 23.2-34.5 [facility] Comment on above: Result Comment: CARDIAC AND PE/DVT THERAPUTIC RANGE 75-103 SEC VASCULAR/THREATENED LIMB THERAPUTIC RANGE 86-118 SEC Testing performed at [place] [address] Performed By: #### I TROT #### Testing performed at [address] [address] aPTT Coag (Bld) [Time] 120.2 s High AV [facility] Comment on above: CARDIAC AND PE/DVT THERAPUTIC RANGE 75-103 SEC VASCULAR/THREATENED LIMB THERAPUTIC RANGE 86-118 SEC Testing performed at [place] [address] Interpretation and review of laboratory results Abnormal [facility] aPTT Coag (Bld) [Time] 55.4 s High 23.2-34.5 [facility] Comment on above: Result Comment: CARDIAC AND PE/DVT THERAPUTIC RANGE 75-103 SEC VASCULAR/THREATENED LIMB THERAPUTIC RANGE 86-118 SEC Performed By: #### P TT ####Testing performed at [address] [address] aPTT Coag (Bld) [Time] 55.4 s High [facility] Comment on above: CARDIAC AND PE/DVT THERAPUTIC RANGE 75-103 SEC VASCULAR/THREATENED LIMB THERAPUTIC RANGE 86-118 SEC Interpretation and review of laboratory results Abnormal [facility] aPTT Coag (Bld) [Time] 82.3 s High 23.2-34.5 [facility] Comment on above: Result Comment: CARDIAC AND PE/DVT THERAPUTIC RANGE 75-103 SEC VASCULAR/THREATENED LIMB THERAPUTIC RANGE 86-118 SEC Performed By: #### P TT ####Testing performed at [address] [address] aPTT Coag (Bld) [Time] 82.3 s High [facility] Comment on above: CARDIAC AND PE/DVT THERAPUTIC RANGE 75-103 SEC VASCULAR/THREATENED LIMB THERAPUTIC RANGE 86-118 SEC aPTT Coag (Bld) [Time] s Critically high 23.2-34. 5 [facility] Comment on above: Result Comment: CARDIAC AND PE/DVT THERAPUTIC RANGE 75-103 SEC VASCULAR/THREATENED LIMB THERAPUTIC RANGE 86-118 SEC Result called to read back by: MARCIN ZHU 09/29/2018 @ 22:17 by PDW Performed By: #### P TT ####Testing performed at [address] [address] TROPONINon 09-30-2018 Interpretation and review of laboratory results Abnormal [facility] [employer] Troponin I.cardiac [Mass/Vol] 0.76 ng/mL Critically high 0 - 0.08 ng/mL [facility] [employer] Comment on above: Result called to crow d back by: GABRIELLA 09/30/2018 @ 11:26 by JASEN Troponin I.cardiac [Mass/Vol] 1.19 ng/mL Critically high 0 - 0.08 ng/mL [facility] [employer] Comment on above: Result called to crow d back by: APRYL 09/30/2018 @ 05:34 by MAT Troponin I.cardiac [Mass/Vol] 1.33 ng/mL Critically high 0 - 0.08 ng/mL [facility] Comment on above: Result called to crow cosme back by: ELSY NATION 09/30/2018 @ 00:48 by DAX URINALYSIS, MACROon 10-01-19 19 Bilirubin Ql (U) Negative NEGATIVE [facility] Clarity (U) CLEAR CLEAR [facility] Color (U) YELLOW YELLOW [facility] Glucose Test strip (U) [Mass/Vol] Negative NEGATIVE mg/dl [facility] [employer] Hemoglobin Ql (U) Negative NEGATIVE [facility] [employer] Ketones (U) [Mass/Vol] Negative NEGAT ANNABEL mg/dl [facility] [employer] Leukocyte esterase Test strip Ql (U) SMALL Abnormal NEGATIVE [facility] [employer] Nitrite Ql (U) Negative NEGATIVE [facility] pH (U) 6.5 [pH] [facility] Protein Ql (U) Negative NEGATIVE mg/dl [facility] Specific gravity (U) [Rel density] 1.010 [facility] Urobilinogen (U) [Mass/Vol] 0.2 mg/dl 0.2 - 1 mg/dl [facility] URINE MACROSCOPICon 10-01-19 19 Bilirubin Ql (U) Negative Normal NEGATIVE [facility] Comment on above: Performed By: #### U MAC UMIC ####Testing performed at [address] [address] Clarity (U) CLEAR Normal CLEAR [facility] Comment on above: Performed By: #### U MAC, UMIC ####Testing performed at [address] [address] Color (U) YELLOW Normal YELLOW [facility] Comment on above: Performed By: #### U MAC, UMIC ####Testing performed at [address] [address] Glucose Ql (U) Negative Normal NEGATIVE [facility] Comment on above: Performed By: #### U MAC, UMIC ####Testing performed at [address] [address] pH (U) 6.5 [pH] Normal 5.0-7.0 [facility] Comment on above: Performed By: #### U MAC, UMIC ####Testing performed at [address] [address] Protein (U) [Mass/Vol] Negative Normal NEGATIVE [facility] Comment on above: Performed By: #### U MAC, UMIC ####Testing performed at [address] [address] URINE HEMOGLOBIN Negative Normal NEGATIVE [facility] Comment on above: Performed By: #### U MAC, UMIC ####Testing performed at [address] [address] URINE KETONE Negative Normal NEGATIVE [facility] Comment on above: Performed By: #### U MAC, UMIC ####Testing performed at [address] [address] URINE LEUKOTEST SMALL Abnormal NEGATIVE [facility] Comment on above: Performed By: #### U MAC, UMIC ####[place] [address] URINE NITRATES Negative Normal NEGATIVE [facility] Comment on above: Performed By: #### U MAC, UMIC ####Testing performed at [address] [address] URINE SPEC GRAVITY 1.010 Normal 1.010-1.0 2 5 [facility] Comment on above: Performed By: #### U MAC, UMIC ####Testing performed at [address] [address] Urobilinogen Qn (U) 0.2 mg/dl Normal 0.2-1.0 [facility] Comment on above: Performed By: #### U MAC, UMIC ####Testing performed at [address] [address] URINE MICROSCOPICon 10-01-19 19 Bacteria LM.HPF (Urine sed) [#/Area] TRACE Abnormal NEGATIVE [facility] Comment on above: Performed By: #### U MAC, UMIC ####Testing performed at [address] [address] Casts LM.LPF (Urine sed) [#/Area] NONE Normal NONE [facility] Comment on above: Performed By: #### U MAC, UMIC ####Testing performed at [place] [id number] CRYSTAL NONE Normal NONE [facility] Comment on above: Performed By: #### U MAC, UMIC ####[place] [address] Epithelial cells LM.HPF (Urine sed) [#/Area] 1 TO 5 Normal [facility] Comment on above: Performed By: #### U MAC, UMIC ####[place] [address] Mucus Ql (Urine sed) Negative Normal NEGATIVE [facility] Comment on above: Performed By: #### U MAC, UMIC ####[place] [address] RBC (U) [#/Vol] Negative Normal NEGATIVE [facility] Comment on above: Performed By: #### U MAC, UMIC ####[place] [address] URINE COMMENT CULTURE CRITERIA NOT MET, NO CULTURE PERFORMED. Normal [facility] Comment on above: Performed By: #### U MAC, UMIC ####[place] [address] WBC (U) [#/Vol] 1 TO 5 Normal NEGATIVE [facility] Comment on above: Performed By: #### U MAC, UMIC ####[place] [address] Bacteria LM.HPF (Urine sed) [#/Area] TRACE Abnormal NEGATIVE [facility] Casts LM.LPF (Urine sed) [#/Area] NONE NONE /LPF [facility] Crystals LM Nom (Urine sed) NONE NONE [facility] Epithelial cells LM Ql (Urine sed) 1 TO 5 /HPF [facility] Mucus Ql (Urine sed) Negative NEGATIVE [facility] RBC LM.HPF (Urine sed) [#/Area] Negative NEGATIVE /HPF [facility] Urine sediment comments LM Nick (Urine sed) CULTURE CRITERIA NOT MET, NO CULTURE PERFORMED. [facility] WBC LM.HPF (Urine sed) [#/Area] 1 TO 5 NEGATIVE /HPF [facility] CBCon 07-20-2019 ABSOLUTE BAS 0.1 X10 Normal [facility] Comment on above: Performed By: #### A CBC, PT, CMPF #### Testing performed at [address] [place] [address] ABSOLUTE EOS 0.10 X10 Normal [facility] Comment on above: Performed By: #### A CBC, PT, CMPF #### Testing performed at [address] [address] ABSOLUTE NEUTROPHIL COUNT 5.1 x10 Normal 1.0-7.0 [facility] Comment on above: Performed By: #### A CBC, PT, CMPF #### Testing performed at [address] [address] Basophils/100 WBC (Bld) 1.4 % Normal 0.0-2.0 [facility] Comment on above: Performed By: #### A CBC, PT, CMPF #### Testing performed at [address] [address] DTYPE AUTO DIFF Normal [facility] Comment on above: Performed By: #### A CBC, PT, CMPF #### Testing performed at [address] [address] Eosinophils/100 WBC (Bld) 1.5 % Normal 0.0-11.0 [facility] Comment on above: Performed By: #### A CBC, PT, CMPF #### Testing performed at [address] [place] [address] Lymphocytes (Bld) [#/Vol] 2.30 X10 Normal [facility] Comment on above: Performed By: #### A CBC, PT, CMPF #### Testing performed at [address] [place] [address] Lymphocytes/100 WBC (Bld) 26.9 % Normal 20.0-55.0 [facility] Comment on above: Performed By: #### A CBC, PT, CMPF #### Testing performed at [address] [address] Monocytes (Bld) [#/Vol] 0.7 X10 Normal [facility] Comment on above: Performed By: #### A CBC, PT, CMPF #### Testing performed at [address] [address] Monocytes/100 WBC (Bld) 8.8 % Normal 0.0-10.0 [facility] Comment on above: Performed By: #### A CBC, PT, CMPF #### Testing performed at [address] [address] Neutrophils/100 WBC (Bld) 61.4 % Normal 37.0-75.0 [facility] Comment on above: Performed By: #### A CBC, PT, CMPF #### Testing performed at [address] [address] Erythrocyte distribution width (RBC) [Ratio] 13.2 % Normal 11.5-14.5 [facility] Comment on above: Performed By: #### A CBC, PT, CMPF #### Testing performed at [address] [address] Hematocrit (Bld) [Volume fraction] 41.0 % Normal 36.0-48.0 [facility] Comment on above: Performed By: #### A CBC, PT, CMPF #### Testing performed at [address] [place] [address] Hemoglobin (Bld) [Mass/Vol] 14.1 g/dL Normal 12.0-16.0 [facility] Comment on above: Performed By: #### A CBC, PT, CMPF #### Testing performed at [address] [address] MCH (RBC) [Entitic mass] 33.0 pg Normal 26.0-35.0 [facility] Comment on above: Performed By: #### A CBC, PT, CMPF #### Testing performed at [address] [place] [address] MCHC (RBC) [Mass/Vol] 34.3 g/dL Normal 27.0-37.0 [facility] Comment on above: Performed By: #### A CBC, PT, CMPF #### Testing performed at [address] [place] [address] MCV (RBC) [Entitic vol] 96.3 fL Normal 80.0-100.0 [facility] Comment on above: Performed By: #### A CBC, PT, CMPF #### Testing performed at [address] [address] Platelet mean volume (Bld) [Entitic vol] 9.3 fL Normal 7.4-11.0 [facility] Comment on above: Performed By: #### A CBC, PT, CMPF #### Testing performed at [address] [address] Platelets (Bld) [#/Vol] 201 /cmm Normal 130.0-400. 0 [facility] Comment on above: Performed By: #### A CBC, PT, CMPF #### Testing performed at [address] [address] RBC (Bld) [#/Vol] 4.26 /cmm Normal 4.0-5.4 [facility] Comment on above: Performed By: #### A CBC, PT, CMPF #### Testing performed at [address] [address] WBC (Bld) [#/Vol] 8.4 /cmm Normal 3.6-11.0 [facility] Comment on above: Performed By: #### A CBC, PT, CMPF #### Testing performed at [address] [address] CBC, EDIF, PLATELETon 2018 ABSOLUTE BASOPHIL COUNT 0.1 X10 [facility] Basophils/100 WBC (Bld) 1.4 % 0 - 2 % [facility] Differential cell count method Nom (Bld) AUTO DIFF % [facility] Eosinophils (Bld) [#/Vol] 0.10 10*3/uL X10 [facility] Eosinophils/100 WBC (Bld) 1.5 % 0 - 11 % [facility] Erythrocyte distribution width (RBC) [Ratio] 13.2 % 11.5 - 14.5 % [facility] Hematocrit (Bld) [Volume fraction] 41.0 % 36 - 48 % [facility] Hemoglobin (Bld) [Mass/Vol] 14.1 g/dL [facility] Lymphocytes (Bld) [#/Vol] 2.30 10*3/uL X10 [facility] Lymphocytes/100 WBC (Bld) 26.9 % 20 - 55 % [facility] MCH (RBC) [Entitic mass] 33.0 pg 26 - 35 PG [facility] MCHC (RBC) [Mass/Vol] 34.3 g/dL [facility] [employer] MCV (RBC) [Entitic vol] 96.3 fL [facility] [employer] Monocytes (Bld) [#/Vol] 0.7 10*3/uL X10 [facility] Monocytes/100 WBC (Bld) 8.8 % 0 - 10 % [facility] Neutrophils (Bld) [#/Vol] 5.1 10*3/uL [facility] Neutrophils/100 WBC (Bld) 61.4 % 37 - 75 % [facility] Platelet mean volume (Bld) [Entitic vol] 9.3 fL [facility] Platelets (Bld) [#/Vol] 201 10*3/uL [facility] RBC (Bld) [#/Vol] 4.26 10*6/uL [facility] WBC (Bld) [#/Vol] 8.4 10*3/uL [facility] CMP FASTINGon 09-29-2018 A:G RATIO 1.5 RATIO Normal 1.3-2.2 [facility] Comment on above: Performed By: #### A CBC, PT, CMPF #### Testing performed at [address] [address] Albumin [Mass/Vol] 4.6 G/dl Normal 3.5-5.0 [facility] Comment on above: Performed By: #### A CBC, PT, CMPF #### Testing performed at [address] [address] ALP [Catalytic activity/Vol] 65 U/L Normal 38-126 [facility] Comment on above: Performed By: #### A CBC, PT, CMPF #### Testing performed at [address] [place] [address] ALT [Catalytic activity/Vol] 37 U/L Normal 14-54 [facility] Comment on above: Performed By: #### A CBC, PT, CMPF #### Testing performed at [address] [place] [address] AST [Catalytic activity/Vol] 48 U/L High 15-41 [facility] Comment on above: Performed By: #### A CBC, PT, CMPF #### Testing performed at [address] [address] Bilirubin [Mass/Vol] 0.8 mg/dL Normal 0.2-1.2 [facility] Comment on above: Performed By: #### A CBC, PT, CMPF #### Testing performed at [address] [address] Creatinine [Mass/Vol] 0.94 mg/dL Normal 0.52-1.04 [facility] Comment on above: Performed By: #### A CBC, PT, CMPF #### Testing performed at [address] [address] EST. GFR, >60 Normal [facility] Comment on above: Performed By: #### A CBC, PT, CMPF #### Testing performed at [address] [address] EST. GFR,Non >60 Normal [facility] Comment on above: Performed By: #### A CBC, PT, CMPF #### Testing performed at [address] [address] GFR/1.73 sq M predicted among non-blacks MDRD (S/P/Bld) [Vol rate/Area] Average GFR for 70+ years old = 75. Normal [facility] Comment on above: Result Comment: [employer] tri Kidney disease, GFR = <60. Kidney failure, GFR = <15. The GFR estimate is not adjusted for extreme body surface area or acute process, nor has it been validated for women or ethnic groups other than and . Performed By: #### A CBC, PT, CMPF #### Testing performed at [address] [address] Protein [Mass/Vol] 7.7 g/dL Normal 6.3-8.2 [facility] Comment on above: Performed By: #### A CBC, PT, CMPF #### Testing performed at [address] [address] Urea nitrogen [Mass/Vol] 17 mg/dL Normal 7-20 [facility] Comment on above: Performed By: #### A CBC, PT, CMPF #### Testing performed at [address] [address] Calcium [Mass/Vol] 9.5 mg/dL Normal 8.4-10.2 [facility] Comment on above: Performed By: #### A CBC, PT, CMPF #### Testing performed at [address] [address] Chloride [Moles/Vol] 98 mmol/L Normal 98-107 [facility] Comment on above: Performed By: #### A CBC, PT, CMPF #### Testing performed at [address] [address] CO2 [Moles/Vol] 21 mmol/L Low 22-30 [facility] Comment on above: Performed By: #### A CBC, PT, CMPF #### Testing performed at [address] [address] Glucose [Mass/Vol] 119 mg/dL High 70-100 [facility] Comment on above: Result Comment: NORMAL <100 mg/dL PREDIABETES 101-126 mg/dL DIABETES 126 mg/dL or higher Performed By: #### A CBC, PT, CMPF #### Testing performed at [address] [address] Potassium [Moles/Vol] 4.5 mmol/L Normal 3.5-5.1 [facility] Comment on above: Performed By: #### A CBC, PT, CMPF #### Testing performed at [address] [address] Sodium [Moles/Vol] 132 mmol/L Low 136-145 [facility] Comment on above: Performed By: #### A CBC, PT, CMPF #### Testing performed at [address] [address] COMPREHENSIVE METABOLIC PANE Cameron 09-29-2018 Albumin [Mass/Vol] 4.6 G/dl 3.5 - 5 G/dl [facility] Albumin/Globulin [Mass ratio] 1.5 {ratio} [facility] ALP [Catalytic activity/Vol] 65 U/L [facility] ALT [Catalytic activity/Vol] 37 U/L [facility] AST [Catalytic activity/Vol] 48 U/L High [facility] Bilirubin [Mass/Vol] 0.8 mg/dL [facility] Calcium [Mass/Vol] 9.5 mg/dL [facility] [employer] Chloride [Moles/Vol] 98 mmol/L [facility] CO2 [Moles/Vol] 21 mmol/L Low [facility] [employer] Creatinine [Mass/Vol] 0.94 mg/dL [facility] [employer] GFR/1.73 sq M predicted among blacks MDRD (S/P/Bld) [Vol rate/Area] mL/min/{1.73_m2} ml/min/1.7 3sq.m [facility] [employer] GFR/1.73 sq M predicted among non-blacks MDRD (S/P/Bld) [Vol rate/Area] mL/min/{1.73_m2} ml/min/1.7 3sq.m [facility] [employer] GFR/1.73 sq M predicted among non-blacks MDRD (S/P/Bld) [Vol rate/Area] Average GFR for 70+ years old = 75. [facility] [employer] Comment on above: Chronic Kidney disea se, GFR = <60. Kidney failure, GFR = <15. The GFR estimate is not adjusted for extreme body surface area or acute process, nor has it been validated for women or ethnic groups other than and . Glucose post fast [Mass/Vol] 119 mg/dL High [facility] [employer] Comment on above: NORMAL <100 mg/dL PREDIABETES 101-126 mg/dL DIABETES 126 mg/dL or higher Potassium [Moles/Vol] 4.5 mmol/L [facility] [employer] Protein [Mass/Vol] 7.7 g/dL [facility] [employer] Sodium [Moles/Vol] 132 mmol/L Low [facility] [employer] Urea nitrogen [Mass/Vol] 17 mg/dL [facility] ISTAT TROPONIN Ion 9 Troponin I.cardiac [Mass/Vol] 1.47 ng/mL Critically high 0-0.08 [facility] Comment on above: Result Comment: Resu lt called to read back by: BUCKY BAXTER 09/29/2018 @ 17:46 by DNViktor Performed By: #### I KIRILLT #### Testing performed at [address] [address] Troponin I.cardiac [Mass/Vol] 0.03 ng/mL Normal 0-0.08 [facility] Comment on above: Performed By: #### I TROT #### Testing performed at [address] [address] MRSA SCREENon 09-29-2018 MRSA DNA SHADI+probe Ql (Unsp spec) Negative Normal NEGATIVE [facility] Comment on above: Result Comment: TEST ING PERFORMED BY PCR Performed By: #### M RSAST #### Testing performed at [address] [address] Otheron 09-29-2018 Interpretation and review of laboratory results Abnormal [facility] PROTIMEon 09-29-2018 INR Coag (PPP) [Relative time] 1.14 {INR} High 0.88-1.12 [facility] Comment on above: Result Comment: 2.0- 3.0 THERAPEUTIC RANGE 2.5-3.5 PROSTHETIC VALVE RANGE Performed By: #### A CBC, PT, CMPF #### Testing performed at [address] [address] PT Coag (PPP) [Time] 14.5 s High 11.6-14.0 [facility] Comment on above: Performed By: #### A CBC, PT, CMPF #### Testing performed at [address] [address] PROTIME-INRon 09-29-2018 INR Coag (PPP) [Relative time] 1.14 {INR} High [facility] Comment on above: 2.0-3.0 THERAPEUTIC RANGE 2.5-3.5 PROSTHETIC VALVE RANGE PT Coag (PPP) [Time] 14.5 s High [facility] PTTon 09-29-2018 aPTT Coag (Bld) [Time] s Critically high [facility] Comment on above: CARDIAC AND PE/DVT THERAPUTIC RANGE 75-103 SEC VASCULAR/THREATENED LIMB THERAPUTIC RANGE 86-118 SEC Result called to read back by: MARCIN ZHU 09/29/2018 @ 22:17 by PDW Interpretation and review of laboratory results Abnormal [facility] aPTT Coag (Bld) [Time] 28.0 s Normal 23.2-34.5 [facility] Comment on above: Result Comment: CARDIAC AND PE/DVT THERAPUTIC RANGE 75-103 SEC VASCULAR/THREATENED LIMB THERAPUTIC RANGE 86-118 SEC Performed By: #### P TT #### Testing performed at [facility] [address] [place] [address] aPTT Coag (Bld) [Time] 28.0 s [facility] [employer] Comment on above: CARDIAC AND PE/DVT THERAPUTIC RANGE 75-103 SEC VASCULAR/THREATENED LIMB THERAPUTIC RANGE 86-118 SEC SCREEN: MRSA ONLY, NARES (IS OLATION SCREEN)on 09-29-2018 MRSA isol Org specific cx Ql (Nose) Negative NEGATIVE [facility] STAPHYOCOCCUS AUREUS BY PCR Negative NEGATIVE [facility] [employer] Comment on above: TESTING PERFORMED BY PCR TROPONINon 09-29-2018 Interpretation and review of laboratory results Abnormal [facility] Troponin I.cardiac [Mass/Vol] 1.47 ng/mL Critically high 0 - 0.08 ng/mL [facility] [employer] Comment on above: Result called to crow michelle back by: BUCKY BAXTER 09/29/2018 @ 17:46 by DNB Troponin I.cardiac [Mass/Vol] 0.03 ng/mL 0 - 0.08 ng/mL [facility] XR CHEST PA 1 VIEWon 019 XR CHEST PA 1 VIEW EXAM: XR CHEST PA 1 VIEW HISTORY: CP COMPARISON: Chest with bilateral rib series from 2018. TECHNIQUE: Portable chest was done at approximately 2:56 PM. REPORT: Trachea, mediastinum, and heart size are unremarkable. No effusion or nodule or pneumothorax is noted. No infiltrate is noted. The diaphragm and bony elements are intact. Postsurgical changes are partially noted of the lumbar spine. IMPRESSION: Nonacute portable chest. Normal [facility] IMPRESSION: Nonacute portable chest. [facility] EXAM: XR CHEST PA 1 VIEW HISTORY: CP COMPARISON: Chest with bilateral rib series from 2018. TECHNIQUE: Portable chest was done at approximately 2:56 PM. REPORT: Trachea, mediastinum, and heart size are unremarkable. No effusion or nodule or pneumothorax is noted. No infiltrate is noted. The diaphragm and bony elements are intact. Postsurgical changes are partially noted of the lumbar spine. [facility] [employer] User, Interfaces - 09/29/2018 5:43 PM EDT EXAM: XR CHEST PA 1 VIEW HISTORY: CP COMPARISON: Chest with bilateral rib series from 2018. TECHNIQUE: Portable chest was done at approximately 2:56 PM. REPORT: Trachea, mediastinum, and heart size are unremarkable. No effusion or nodule or pneumothorax is noted. No infiltrate is noted. The diaphragm and bony elements are intact. Postsurgical changes are partially noted of the lumbar spine. IMPRESSION IMPRESSION: Nonacute portable chest. [facility] XR RIBS WITH CHEST, ASTER Cameron 07-13-2018 XR RIBS WITH CHEST, BILATERAL PA CHEST AND BILATERAL RIB SERIES CLINICAL HISTORY: Chest pain. Fall 4 days prior. Back pain when breathing. COMPARISON: Chest x-ray 03/23/2018. FINDINGS: 5 views are submitted. The cardiomediastinal silhouette, lungs, pulmonary vasculature, and pleural spaces are normal. No acute osseous lesion is present. IMPRESSION: 1. No acute osseous injury. 2. No pneumothorax. 3. No acute cardiopulmonary process. Normal [facility] Otheron 03-30-2018 IMPRESSION: 1. Stabl e postoperative changes of posterior decompression and posterior interbody fusion L4-S1. No radiographic evidence of hardware complications. 2. No acute osseous abnormality or evidence of instability. 3. Stable slight degrees of retrolisthesis L4 on L5 and L5 on S1. RADIOLOGY XR SPINE LUMBAR W BE NDING CLINICAL STATEMENT: One-year postop back surgery. COMPARISON: Lumbar spine series July 31, 2017. TECHNIQUE: AP, oblique, lateral views and a lateral view lumbosacral junction. Lateral flexion and extension views. FINDINGS: Again present are postoperative changes of posterior decompression and posterior bony fusion L4-S1. Surgical hardware is intact and in stable position with no significant movement with flexion or extension or evidence of hardware loosening. 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 There is again minimal degrees of anterolisthesis L4 on L5 and L5 on S1 with no significant change in flexion and extension. No new listhesis. No development of significant disc space narrowing above the fusion level. Vertebral body heights are maintained. Moderate atherosclerotic calcifications noted in the abdominal aorta. RADIOLOGY User, Interfaces - 03/30/2018 3:59 PM EST XR SPINE LUMBAR W BENDING CLINICAL STATEMENT: One-year postop back surgery. COMPARISON: Lumbar spine series July 31, 2017. TECHNIQUE: AP, oblique, lateral views and a lateral view lumbosacral junction. Lateral flexion and extension views. FINDINGS: Again present are postoperative changes of posterior decompression and posterior bony fusion L4-S1. Surgical hardware is intact and in stable position with no significant movement with flexion or extension or evidence of hardware loosening. 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 There is again minimal degrees of anterolisthesis L4 on L5 and L5 on S1 with no significant change in flexion and extension. No new listhesis. No development of significant disc space narrowing above the fusion level. Vertebral body heights are maintained. Moderate atherosclerotic calcifications noted in the abdominal aorta. IMPRESSION IMPRESSION: 1. Stable postoperative changes of posterior decompression and posterior interbody fusion L4-S1. No radiographic evidence of hardware complications. 2. No acute osseous abnormality or evidence of instability. 3. Stable slight degrees of retrolisthesis L4 on L5 and L5 on S1. RADIOLOGY XR SPINE LUMBAR W BENDINGon 03-30-2018 XR SPINE LUMBAR W BENDING XR SPINE LUMBAR W BENDING CLINICAL STATEMENT: One-year postop back surgery. COMPARISON: Lumbar spine series July 31, 2017. TECHNIQUE: AP, oblique, lateral views and a lateral view lumbosacral junction. Lateral flexion and extension views. FINDINGS: Again present are postoperative changes of posterior decompression and posterior bony fusion L4-S1. Surgical hardware is intact and in stable position with no significant movement with flexion or extension or evidence of hardware loosening. 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 There is again minimal degrees of anterolisthesis L4 on L5 and L5 on S1 with no significant change in flexion and extension. No new listhesis. No development of significant disc space narrowing above the fusion level. Vertebral body heights are maintained. Moderate atherosclerotic calcifications noted in the abdominal aorta. IMPRESSION: 1. Stable postoperative changes of posterior decompression and posterior interbody fusion L4-S1. No radiographic evidence of hardware complications. 2. No acute osseous abnormality or evidence of instability. 3. Stable slight degrees of retrolisthesis L4 on L5 and L5 on S1. Normal [facility] BMP FASTINGon 04-08-2017 Anion gap 8 mmol/L Normal 8-16 [facility] BUN (urea nitrogen) 11 mg/dL Normal 7-20 [facility] Calcium 8.4 mg/dL Normal 8.4-10.2 [facility] Chloride 104 mmol/L Normal 98-107 [facility] CO2 28 mmol/L Normal 22-30 [facility] Creatinine 0.6 mg/dL Low 0.7-1.2 [facility] eGFR (non-black) mL/min/{1.73_m2} Normal [facility] eGFR (non-black) Average GFR for 70+ years old = 75. Normal [facility] Comment on above: Result Comment: [employer] tri Kidney disease, GFR = <60.Kidney failure, GFR = <15.The GFR estimate is not adjusted for extreme body surface area or acute process, nor has it been validated for women or ethnic groups other than and . Glucose mass conc 132 mg/dL High 70-100 [facility] Comment on above: Result Comment: NORM AL <100 mg/dLPREDIABETES 101-126 mg/dLDIABETES 126 mg/dL or higher Potassium molar conc 3.3 mmol/L Low 3.5-5.1 [facility] Sodium 140 mmol/L Normal 137-145 [facility] CBCon 04-08-2017 ABSOLUTE BAS 0.0 X10 Normal [facility] ABSOLUTE EOS 0.00 X10 Normal [facility] Basophils/100 WBC Auto (Bld) 0.1 % Normal 0.0-2.0 [facility] DTYPE AUTO DIFF Normal [facility] Eosinophils/100 leukocytes 0.1 % Normal 0.0-11.0 [facility] Lymphocytes 2.10 X10 Normal [facility] Lymphocytes/100 leukocytes 23.9 % Normal 20.0-55.0 [facility] Monocytes 0.6 X10 Normal [facility] Monocytes/100 leukocytes 7.2 % Normal 0.0-10.0 [facility] Neutrophils 5.9 x10 Normal 1.0-7.0 [facility] Neutrophils/100 leukocytes 68.7 % Normal 37.0-75.0 [facility] Erythrocyte distribution width Auto Ratio (RBC) 12.9 % Normal 11.5-14.5 [facility] Erythrocytes (RBC) 2.88 /cmm Low 4.0-5.4 [facility] Hematocrit (HCT) 26.8 % Low 36.0-48.0 [facility] Hemoglobin mass conc (Bld) 9.2 g/dL Low 12.0-16.0 [facility] MCH 32.0 pg Normal 26.0-35.0 [facility] mass conc (RBC) 34.4 g/dL Normal 27.0-37.0 [facility] MCV 93.0 fL Normal 80.0-100.0 [facility] Platelet mean volume (PMV) 8.1 fL Normal 7.4-11.0 [facility] Platelets 140 /cmm Normal 130.0-400. 0 [facility] WBC (Leukocytes) 8.6 /cmm Normal 3.6-11.0 [facility] Certificatioon 04-08-2017 [facility] CAC NOTES Normal [facility] DISCH SUMMon 04-08-2017 [facility] NOTES Normal [facility] MAGNESIUMon 04-08-2017 Magnesium 2.1 mg/dL Normal 1.6-2.3 [facility] NURSING NOTEon 04-08-2017 [facility] NOTES Normal [facility] NOTES Normal [facility] NOTES Normal [facility] NOTES Normal [facility] NOTES Normal [facility] NOTES Normal [facility] PROGRESSon 04-08-2017 [facility] NOTES Normal [facility] NOTES Normal [facility] NOTES Normal [facility] Anes Post-opon 04-07-2017 [facility] CAC NOTES Normal [facility] BMP FASTINGon 04-07-2017 Anion gap 9 mmol/L Normal 8-16 [facility] BUN (urea nitrogen) 10 mg/dL Normal 7-20 [facility] Calcium 8.2 mg/dL Low 8.4-10.2 [facility] Chloride 104 mmol/L Normal 98-107 [facility] CO2 24 mmol/L Normal 22-30 [facility] Creatinine 0.6 mg/dL Low 0.7-1.2 [facility] eGFR (non-black) mL/min/{1.73_m2} Normal [facility] eGFR (non-black) Average GFR for 70+ years old = 75. Normal [facility] Comment on above: Result Comment: [employer] tri Kidney disease, GFR = <60.Kidney failure, GFR = <15.The GFR estimate is not adjusted for extreme body surface area or acute process, nor has it been validated for women or ethnic groups other than and . Glucose mass conc 189 mg/dL High 70-100 [facility] Comment on above: Result Comment: NORM AL <100 mg/dLPREDIABETES 101-126 mg/dLDIABETES 126 mg/dL or higher Potassium molar conc 3.8 mmol/L Normal 3.5-5.1 [facility] Sodium 137 mmol/L Normal 137-145 [facility] CBCon 04-07-2017 ABSOLUTE BAS 0.0 X10 Normal [facility] ABSOLUTE EOS 0.00 X10 Normal [facility] Basophils/100 WBC Auto (Bld) 0.1 % Normal 0.0-2.0 [facility] DTYPE AUTO DIFF Normal [facility] Eosinophils/100 leukocytes 0.0 % Normal 0.0-11.0 [facility] Lymphocytes 0.60 X10 Normal [facility] Lymphocytes/100 leukocytes 9.7 % Low 20.0-55.0 [facility] Monocytes 0.3 X10 Normal [facility] Monocytes/100 leukocytes 4.6 % Normal 0.0-10.0 [facility] Neutrophils 5.6 x10 Normal 1.0-7.0 [facility] Neutrophils/100 leukocytes 85.6 % High 37.0-75.0 [facility] Erythrocyte distribution width Auto Ratio (RBC) 12.7 % Normal 11.5-14.5 [facility] Erythrocytes (RBC) 3.03 /cmm Low 4.0-5.4 [facility] Hematocrit (HCT) 28.3 % Low 36.0-48.0 [facility] Hemoglobin mass conc (Bld) 9.6 g/dL Low 12.0-16.0 [facility] MCH 31.7 pg Normal 26.0-35.0 [facility] MCHC mass conc (RBC) 34.0 g/dL Normal 27.0-37.0 [facility] MCV 93.4 fL Normal 80.0-100.0 [facility] Platelet mean volume (PMV) 7.9 fL Normal 7.4-11.0 [facility] Platelets 141 /cmm Normal 130.0-400. 0 [facility] WBC (Leukocytes) 6.6 /cmm Normal 3.6-11.0 [facility] MAGNESIUMon 04-07-2017 Magnesium 1.7 mg/dL Normal 1.6-2.3 [facility] NURSING NOTEon 04-07-2017 [facility] NOTES Normal [facility] NOTES Normal [facility] PLAN OF CAREon 04-07-2017 [facility] NOTES Normal [facility] PROGRESSon 04-07-2017 [facility] NOTES Normal [facility] NOTES Normal [facility] NOTES Normal [facility] NOTES Normal [facility] NOTES Normal [facility] NOTES Normal [facility] PROTIMEon 04-07-2017 INR Coag RelTime (PPP) 1.14 {INR} High 0.87-1.13 [facility] Comment on above: Result Comment: 2.0- 3.0 THERAPEUTIC RANGE2.5-3.5 PROSTHETIC VALVE RANGE Prothrombin time (PT) Coag time (PPP) 11.8 s Normal 10.0-13.0 [facility] PTTon 04-07-2017 aPTT 26.2 s Normal 24.2-28.6 [facility] Comment on above: Result Comment: CARD IAC AND PE/DVT THERAPUTIC RANGE 41-60 SECVASCULAR/THREATENED LIMB THERAPUTIC RANGE 47-69 SEC XR SPINE LUMBOSACRAL AP AND LATERALon 04-07-2017 XR SPINE LUMBOSACRAL AP AND LATERAL LUMBAR SPINE RADIOGRAPHS:CLINICAL HISTORY: Postop fusion lumbar spine.TECHNIQUE: 2 upright views. 2 images.COMPARISON: Lumbar spine radiographs 09/12/2016.RESULT:COUNTING REFERENCE: Lumbosacral junction. For the purposes of this report, L5-S1 is considered the last lumbar-type disc space and L4-L5 is considered the level of the iliac crest.There are postsurgical changes of bilateral posterior pedicle gary and screw fusion extending from L4 through S1 with interbody devices at these levels. Surgical hardware is intact. Grade 1 anterolisthesis of L4 on L5 measures 3 mm, previously 6 mm. Grade 1 anterolisthesis of L5 on S1 measures 4 mm and previously also measured 4 mm. No other osseous alignment. Vertebral body heights and remaining intervertebral disc spaces are maintained. Sacroiliac joints are intact. Surgical drains are noted posteriorly. At least moderate aortoiliac atherosclerotic calcifications. Gas is noted within multiple normal caliber loops of small bowel and colon.IMPRESSION:Postsurgic al changes of L4-S1 fusion without radiographic complication.Grade 1 anterolisthesis of L4 on L5 and L5 on S1, as described. Normal [facility] Anes Pre-opon 04-06-2017 [facility] CAC NOTES Normal [facility] BMP FASTINGon 04-06-2017 Anion gap 9 mmol/L Normal 8-16 [facility] BUN (urea nitrogen) 9 mg/dL Normal 7-20 [facility] Calcium 7.7 mg/dL Low 8.4-10.2 [facility] Chloride 111 mmol/L High 98-107 [facility] CO2 22 mmol/L Normal 22-30 [facility] Creatinine 0.6 mg/dL Low 0.7-1.2 [facility] eGFR (non-black) Average GFR for 70+ years old = 75. Normal [facility] Comment on above: Result Comment: [employer] tri Kidney disease, GFR = <60.Kidney failure, GFR = <15.The GFR estimate is not adjusted for extreme body surface area or acute process, nor has it been validated for women or ethnic groups other than and . eGFR (non-black) mL/min/{1.73_m2} Normal [facility] Glucose mass conc 172 mg/dL High 70-100 [facility] Comment on above: Result Comment: NORM AL <100 mg/dLPREDIABETES 101-126 mg/dLDIABETES 126 mg/dL or higher Potassium molar conc 4.2 mmol/L Normal 3.5-5.1 [facility] Sodium 142 mmol/L Normal 137-145 [facility] BRIEF OP NOTon 04-06-2017 [facility] CAC NOTES Normal [facility] CONSULTon 04-06-2017 [facility] NOTES Normal [facility] HEMATOCRITon 04-06-2017 Hematocrit (HCT) 31.5 % Low 36.0-48.0 [facility] HEMOGLOBINon 04-06-2017 Hemoglobin mass conc (Bld) 10.6 g/dL Low 12.0-16.0 [facility] MAGNESIUMon 04-06-2017 Magnesium 1.6 mg/dL Normal 1.6-2.3 [facility] MRSA SCREENon 04-06-2017 MRSA SCREEN Negative Normal [facility] Comment on above: Performed By: #### M RSAST ####[place] [address] [employer] A[employer]US SCREEN Negative Normal [facility] Comment on above: Result Comment: TEST ING PERFORMED BY PCRTesting performed at [place] [address] Performed By: #### M RSAST ####[place] [address] OR NURSINGon 04-06-2017 [facility] CAC NOTES Normal [facility] URINE CULTUREon 03-25-2017 Urine culture, bacteria SPECIMEN DESCRIPTION URINE CLEAN CATCHUA DIPSTICK LEUKOCYTE POSITIVE * Result Note: NITRITE POSITIVE *CULTURE KLEBSIELLA PNEUMONIAE * Result Note: >100,000 C/C/ML * * Result Note: Testing performed at [place] [address] *REPORT STATUS 03/25/2017 * Result Note: FINAL * O RGANISM KLEBSIELLA PNEUMONIAE * Result Note: KLEBSIELLA PNEUMONIAE *METHOD MICAMPICILLIN RESISTANTAMPICILLIN/SULBACT AM <=2 SUSCEPTIBLECEFTRIAXONE <=1 SUSCEPTIBLECEFAZOLIN <=4 SUSCEPTIBLEIMIPENEM <=0.25 SUSCEPTIBLEGENTAMICIN <=1 SUSCEPTIBLETRIMETH-SULFA <=20 SUSCEPTIBLEAMOXICILLIN/CLAV ULANIC A <=2 SUSCEPTIBLENITROFURANTOIN 64 INTERMEDIATEPIPERACILLIN/TA ZOBACTAM <=4 SUSCEPTIBLELEVOFLOXACIN <=0.12 SUSCEPTIBLEESBL NEGATIVECEFTAZIDIME <=1 SUSCEPTIBLE Normal [facility] Comment on above: Performed By: #### A URNC ####Testing performed at [facility] [place], [place] [address]Zaifqvd performed at [address] [address] CBCon 03-23-2017 ABSOLUTE BAS 0.0 X10 Normal [facility] ABSOLUTE EOS 0.20 X10 Normal [facility] Basophils/100 WBC Auto (Bld) 1.0 % Normal 0.0-2.0 [facility] DTYPE AUTO DIFF Normal [facility] Eosinophils/100 leukocytes 3.7 % Normal 0.0-11.0 [facility] Lymphocytes 1.40 X10 Normal [facility] Lymphocytes/100 leukocytes 30.2 % Normal 20.0-55.0 [facility] Monocytes 0.5 X10 Normal [facility] Monocytes/100 leukocytes 9.9 % Normal 0.0-10.0 [facility] Neutrophils 2.6 x10 Normal 1.0-7.0 [facility] Neutrophils/100 leukocytes 55.2 % Normal 37.0-75.0 [facility] Erythrocyte distribution width Auto Ratio (RBC) 13.2 % Normal 11.5-14.5 [facility] Erythrocytes (RBC) 4.33 /cmm Normal 4.0-5.4 [facility] Hematocrit (HCT) 40.3 % Normal 36.0-48.0 [facility] Hemoglobin mass conc (Bld) 13.7 g/dL Normal 12.0-16.0 [facility] MCH 31.6 pg Normal 26.0-35.0 [facility] MCHC mass conc (RBC) 33.9 g/dL Normal 27.0-37.0 [facility] MCV 93.2 fL Normal 80.0-100.0 [facility] Platelet mean volume (PMV) 7.6 fL Normal 7.4-11.0 [facility] Platelets 188 /cmm Normal 130.0-400. 0 [facility] WBC (Leukocytes) 4.8 /cmm Normal 3.6-11.0 [facility] CMP FASTINGon 03-23-2017 A:G RATIO 1.4 RATIO Normal 1.3-2.2 [facility] Alanine aminotransferase (ALT) 34 U/L Normal 9-52 [facility] Albumin 4.5 G/dl Normal 3.5-5.0 [facility] Alkaline phosphatase (ALP) 82 U/L Normal 38-126 [facility] Aspartate aminotransferase (AST) 35 U/L Normal 14-36 [facility] Bilirubin (total) 0.4 mg/dL Normal 0.2-1.3 [facility] BUN (urea nitrogen) 14 mg/dL Normal 7-20 [facility] Calcium 10.1 mg/dL Normal 8.4-10.2 [facility] Chloride 96 mmol/L Low 98-107 [facility] CO2 30 mmol/L Normal 22-30 [facility] Creatinine 0.7 mg/dL Normal 0.7-1.2 [facility] eGFR (non-black) mL/min/{1.73_m2} Normal [facility] eGFR (non-black) Average GFR for 70+ years old = 75. Normal [facility] Comment on above: Result Comment: [employer] tri Kidney disease, GFR = <60.Kidney failure, GFR = <15.The GFR estimate is not adjusted for extreme body surface area or acute process, nor has it been validated for women or ethnic groups other than and . Glucose mass conc 89 mg/dL Normal 70-100 [facility] Comment on above: Result Comment: NORM AL <100 mg/dLPREDIABETES 101-126 mg/dLDIABETES 126 mg/dL or higher Potassium molar conc 4.4 mmol/L Normal 3.5-5.1 [facility] Protein 7.8 g/dL Normal 6.3-8.2 [facility] Sodium 138 mmol/L Normal 137-145 [facility] MRSA SCREENon 03-23-2017 MRSA SCREEN Negative Normal [facility] Comment on above: Performed By: #### M RSAST ####[place] [address] STAPH AUREUS SCREEN Positive Normal [facility] Comment on above: Result Comment: TEST ING PERFORMED BY PCRTesting performed at [place] [address] Performed By: #### M RSAST ####[place] [address] PROGRESSon 03-23-2017 [facility] NOTES Normal [facility] PROTIMEon 03-23-2017 INR Coag RelTime (PPP) 1.04 {INR} Normal 0.87-1.13 [facility] Comment on above: Result Comment: 2.0- 3.0 THERAPEUTIC RANGE2.5-3.5 PROSTHETIC VALVE RANGE Prothrombin time (PT) Coag time (PPP) 10.8 s Normal 10.0-13.0 [facility] PTTon 03-23-2017 aPTT 24.7 s Normal 24.2-28.6 [facility] Comment on above: Result Comment: CARD IAC AND PE/DVT THERAPUTIC RANGE 41-60 SECVASCULAR/THREATENED LIMB THERAPUTIC RANGE 47-69 SEC URINE MACROSCOPICon 03-23-19 18 Bilirubin Ql (U) Negative Normal NEGATIVE [facility] URINE HEMOGLOBIN TRACE-INTACT Abnormal NEGATIVE [facility] URINE KETONE Negative Normal NEGATIVE [facility] URINE LEUKOTEST TRACE Abnormal NEGATIVE [facility] URINE NITRATES Positive Abnormal NEGATIVE [facility] URINE SPEC GRAVITY 1.010 Normal 1.010-1.0 2 5 [facility] URINE TOTAL PROTEIN Negative Normal NEGATIVE [facility] Urine, clarity CLEAR Normal CLEAR [facility] Urine, color YELLOW Normal YELLOW [facility] Urine, glucose presence Negative Normal NEGATIVE [facility] Urine, pH 7.0 [pH] Normal 5.0-7.0 [facility] Urine, urobilinogen 0.2 mg/dl Normal 0.2-1.0 [facility] URINE MICROSCOPICon 03-23-19 18 CRYSTAL NONE Normal NONE [facility] URINE COMMENT REFLEX CULTURE PER ESTABLISHED CRITERIA. Normal [facility] URINE WBC'S 1 TO 5 Normal NEGATIVE [facility] Urine, bacteria in sediment 2+ Abnormal NEGATIVE [facility] Urine, casts in sediment NONE Normal NONE [facility] Urine, epithelial cells in sediment 1 TO 5 Normal [facility] Urine, erythrocytes 1 TO 5 Normal NEGATIVE [facility] Urine, mucus presence in sediment Negative Normal NEGATIVE [facility] XR CHEST PA 1 VIEWon 018 XR CHEST PA 1 VIEW XR CHEST PA 1 VIEW, 03/23/2017 1:27 PMCLINICAL STATEMENT: Preoperative.COMPARISON: Chest x-ray 11/10/2012.FINDINGS: Single frontal view of the chest obtained. The cardiomediastinal silhouette is within normal limits. There is evidence of a few calcified nodes in the right hilar region consistent with old granulomatous disease. Lungs are clear without focal airspace consolidation. No pneumothorax or pleural effusion. Visualized portions of the upper abdomen are unremarkable. No acute osseous abnormalities.IMPRESSION:No acute cardiopulmonary disease. Normal [facility] MRI LUMBAR SPINE W/O CONTon 11-11-2016 MRI LUMBAR SPINE W/O CONT Final ReportAccession No: [id number] Performed: Nov 11 2016 12:17PMExamination: MRI LUMBAR SPINE W/O CONTClinical history: RADICULOPATHY LUMBAR REGIONMRI LUMBAR SPINE WITHOUT CONTRAST 11/11/2016 12:17 PMTECHNIQUE: Multiplanar multisequence MR imaging of the lumbar spinewithout contrast.COMPARISON: Radiographs 10/11/2012FINDINGS:Five lumbar type vertebral bodies are assumed for the purposes of thisexamination.The visualized spinal cord is grossly unremarkable appearance, howevernot imaged in detail.The vertebral body heights are maintained. Grade 1 anterolisthesis of L4is noted as well as minimal anterolisthesis of L5. No marrow edemaidentified.At L1-2, there is no significant disc displacement, central orneuroforaminal narrowing.At L2-3, there is no significant disc displacement, central orneuroforaminal narrowing.At L3-4, there is no significant disc displacement, central orneuroforaminal narrowing.At L4-5, a disc bulge and central herniation is present. Along with facetarthropathy and ligamentum flavum hypertrophy, this results in severecentral canal narrowing and moderate neural foraminal narrowing, rightgreater than left.At L5-S1, there is a minimal disc bulge. Facet arthropathy is present.There is no significant central canal or neural foraminal narrowing.The visualized paraspinal soft tissues and retroperitoneum reveals nofocal signal abnormality.IMPRESSION:1. Disc bulge and central herniation at L4-5 along with facet arthropathyand anterolisthesis results in severe central canal narrowing andmoderately severe neural foraminal narrowing, right greater than left.2. Grade 1 anterolisthesis of L4 and L5 is again demonstrated.Interpreting Physician: MAYUR HERNANDEZ M.D.Trans: : cc: Normal [facility] Vital Signs Date Time Vital Sign Value Performing Clinician Facility 03-02-2023 14:40-0500 Body height 160.02 cm Armin Rios Other [facility] Other 03-02-2023 14:40-0500 Body mass index (BMI) [Ratio] 20.9 kg/m2 Armin Rios Other [facility] Other 03-02-2023 14:40-0500 Body weight 53.52 kg Armin Rios Other [facility] Other 03-02-2023 14:40-0500 Diastolic blood pressure 70 mm[Hg] Armin Rios Other [facility] Other 03-02-2023 14:40-0500 Respiratory rate 16 /min Armin Rios Other [facility] Other 03-02-2023 14:40-0500 SaO2% (BldA) [Mass fraction] 98 % Armin Rios Other [facility] Other 03-02-2023 14:40-0500 Systolic blood pressure 128 mm[Hg] Armin Rios Other [facility] Other 02-18-2023 11:10-0500 Body temperature 99.8 [degF] [facility] 02-18-2023 11:10-0500 Diastolic blood pressure 75 mm[Hg] [facility] 02-18-2023 11:10-0500 Heart rate 78 /min [facility] 02-18-2023 11:10-0500 Respiratory rate 18 /min [facility] 02-18-2023 11:10-0500 SaO2% (BldA) [Mass fraction] 95 % [facility] 02-18-2023 11:10-0500 Systolic blood pressure 125 mm[Hg] [facility] 02-18-2023 06:00-0500 Body weight 56.6 kg [facility] 02-17-2023 13:10-0500 Body height 157.48 cm [facility] 02-04-2019 11:18-0500 BMI (Body Mass Index) 23.4 kg/m2 [facility] 02-04-2019 11:18-0500 Body Temperature 98.2 [degF] [facility] 02-04-2019 11:18-0500 Body weight 61.83 kg [facility] 02-04-2019 11:18-0500 BP Diastolic 84 mm[Hg] [facility] 02-04-2019 11:18-0500 BP Systolic 138 mm[Hg] [facility] 02-04-2019 11:18-0500 Height 162.6 cm [facility] 02-04-2019 11:18-0500 Pulse (Heart Rate) 68 /min [facility] 02-04-2019 11:18-0500 Pulse Oximetry 98 % [facility] 02-04-2019 11:18-0500 Respiratory Rate 16 /min [facility] 10-16-2018 10:41-0400 BMI (Body Mass Index) 23.62 kg/m2 [facility] 10-16-2018 10:41-0400 Body weight 62.41 kg [facility] 10-16-2018 10:41-0400 BP Diastolic 90 mm[Hg] [facility] 10-16-2018 10:41-0400 BP Systolic 140 mm[Hg] [facility] 10-16-2018 10:41-0400 Pulse (Heart Rate) 63 /min [facility] 10-16-2018 10:41-0400 Pulse Oximetry 99 % [facility] 10-09-2018 15:10-0400 BMI (Body Mass Index) 23.09 kg/m2 [facility] 10-09-2018 15:10-0400 Body Temperature 98.4 [degF] [facility] 10-09-2018 15:10-0400 Body weight 61.01 kg [facility] 10-09-2018 15:10-0400 BP Diastolic 60 mm[Hg] [facility] 10-09-2018 15:10-0400 BP Systolic 128 mm[Hg] [facility] 10-09-2018 15:10-0400 Height 162.6 cm [facility] [employer] 10-09-2018 15:10-0400 Pulse (Heart Rate) 63 /min [facility] 10-09-2018 15:10-0400 Pulse Oximetry 99 % [facility] 10-02-2018 12:00-0400 Body Temperature 98.1 [degF] [facility] [employer] 10-02-2018 12:00-0400 BP Diastolic 70 mm[Hg] [facility] 10-02-2018 12:00-0400 BP Systolic 144 mm[Hg] [facility] 10-02-2018 12:00-0400 Pulse (Heart Rate) 69 /min [facility] 10-02-2018 12:00-0400 Pulse Oximetry 100 % [facility] 10-02-2018 12:00-0400 Respiratory Rate 18 /min [facility] 10-02-2018 00:00-0400 BMI (Body Mass Index) 22.36 kg/m2 [facility] 10-02-2018 00:00-0400 Body weight 59.1 kg [facility] 10-01-2018 21:21-0400 Body surface area Derived from formula 1.66 m2 [facility] 09-29-2018 17:16-0400 Height 162.6 cm [facility] 2018 16:10-0400 BMI (Body Mass Index) 23.21 kg/m2 [facility] 2018 16:10-0400 Body Temperature 98.71 [degF] [facility] 2018 16:10-0400 Body weight 59.42 kg [facility] 2018 16:10-0400 BP Diastolic 64 mm[Hg] [facility] 2018 16:10-0400 BP Systolic 122 mm[Hg] [facility] 2018 16:10-0400 Height 160 cm [facility] 2018 16:10-0400 Pulse (Heart Rate) 83 /min [facility] 2018 16:10-0400 Pulse Oximetry 98 % [facility] 2018 16:10-0400 Respiratory Rate 16 /min [facility] 05-15-2018 13:44-0500 BMI (Body Mass Index) 23.47 kg/m2 [facility] 05-15-2018 13:44-0500 Body Temperature 99.61 [degF] [facility] 05-15-2018 13:44-0500 BP Diastolic 80 mm[Hg] [facility] 05-15-2018 13:44-0500 BP Systolic 126 mm[Hg] [facility] 05-15-2018 13:44-0500 Height 160 cm [facility] 05-15-2018 13:44-0500 Pulse (Heart Rate) 73 /min [facility] 05-15-2018 13:44-0500 Pulse Oximetry 96 % [facility] 05-15-2018 13:44-0500 Respiratory Rate 16 /min [facility] 05-15-2018 13:44-0500 Weight 60.1 kg [facility] 01-31-2018 14:29-0500 BMI (Body Mass Index) 23.91 kg/m2 [facility] Work Phone: 01-31-2018 14:29-0500 Body Temperature 98.91 [degF] [facility] Work Phone: 01-31-2018 14:29-0500 BP Diastolic 72 mm[Hg] [facility] Work Phone: 01-31-2018 14:29-0500 BP Systolic 154 mm[Hg] [facility] Work Phone: 01-31-2018 14:29-0500 Height 160 cm [facility] Work Phone: 01-31-2018 14:29-0500 Pulse (Heart Rate) 68 /min [facility] Work Phone: 01-31-2018 14:29-0500 Pulse Oximetry 99 % [facility] Work Phone: 01-31-2018 14:29-0500 Respiratory Rate 16 /min [facility] Work Phone: 01-31-2018 14:29-0500 Weight 61.24 kg [facility] Work Phone: 01-23-2018 11:38-0500 BMI (Body Mass Index) 24.62 kg/m2 [facility] Work Phone: 01-23-2018 11:38-0500 Body Temperature 99.5 [degF] [facility] Work Phone: 01-23-2018 11:38-0500 BP Diastolic 84 mm[Hg] [facility] Work Phone: 01-23-2018 11:38-0500 BP Systolic 158 mm[Hg] [facility] Work Phone: 01-23-2018 11:38-0500 Height 160 cm [facility] Work Phone: 01-23-2018 11:38-0500 Pulse (Heart Rate) 73 /min [facility] Work Phone: 01-23-2018 11:38-0500 Pulse Oximetry 97 % [facility] Work Phone: 01-23-2018 11:38-0500 Respiratory Rate 16 /min [facility] Work Phone: 01-23-2018 11:38-0500 Weight 63.05 kg [facility] Work Phone: Encounters Encounter Date Encounter Type Care Provider Facility Start: 03-02-2023 End: 03-02-2023 ambulatory Armin Rios Other [facility] Other Start: 03-02-2023 Office outpatient vi sit 25 minutes Armin Rios [facility] Start: 02-17-2023 End: 02-19-2023 Evaluation and management of inpatient Marie Sabina Facility:[facility] Start: 02-17-2023 End: 02-19-2023 Evaluation and management of inpatient [facility] Work Phone: Start: 02-04-2019 End: 02-04-2019 Office outpatient visit 15 minutes Suleiman Gil Work Phone: [facility] Comment on above: Upper respiratory tr act infection, unspecified type (Primary Dx); Cough Start: 02-01-2019 End: 02-01-2019 Subsequent hospital visit by physician Elias Putnam Work Phone: [facility] Comment on above: Arrived Start: 10-31-2018 End: 10-31-2018 Refill Mary Jo Griffith [facility] Comment on above: NSTEMI (non-ST eleva kevin myocardial infarction) (Primary Dx); Essential hypertension, benign; Chest pain due to coronary artery disease Start: 10-30-2018 End: 10-30-2018 Telephone encounter Nessa Beartle [facility] Comment on above: Other Start: 10-16-2018 End: 10-16-2018 Office outpatient visit 25 minutes Elias Putnam Work Phone: [facility] Comment on above: Stress-induced cardi omyopathy (Primary Dx); Essential hypertension, benign Start: 10-09-2018 End: 10-09-2018 Office outpatient visit 15 minutes Suleiman Gil Work Phone: [facility] Comment on above: Stress-induced cardi omyopathy (Primary Dx) Start: 09-29-2018 End: 10-02-2018 Evaluation and management of inpatient Dimas Barry Work Phone: [facility] ICU Comment on above: Chest pain due to co ronary artery disease Start: 09-28-2018 End: 09-28-2018 Telephone encounter Suleiman Gil Work Phone: [facility] Comment on above: Medication Managemen t Start: 07-13-2018 End: 07-13-2018 Telephone encounter Suleiman Gil Work Phone: [facility] Comment on above: Results Start: 2018 End: 2018 Patient encounter procedure Suleiman Gil Work Phone: [facility] Comment on above: Arrived Start: 2018 End: 2018 Office outpatient visit 15 minutes Suleiman Gil Work Phone: [facility] Comment on above: Rib pain (Primary Dx ); Cough Start: 07-10-2018 End: 07-10-2018 Telephone encounter Suleiman Gil Work Phone: [facility] Comment on above: Medication Refill Error Start: 05-15-2018 Patient encounter procedure SULEIMAN GIL [facility] Start: 05-15-2018 End: 05-15-2018 Office outpatient visit 15 minutes Suleiman Gil Work Phone: [facility] Comment on above: Upper respiratory tr act infection, unspecified type (Primary Dx); Anxiety disorder, unspecified type Start: 04-02-2018 End: 04-02-2018 Telephone encounter Suleiman Gil Work Phone: [facility] Comment on above: Medication Managemen t Start: 03-30-2018 End: 03-30-2018 [facility] Work Phone: [facility] Comment on above: Arrived Spondylolisthesis of lumbar region Start: 01-31-2018 Patient encounter procedure [facility] Start: 01-31-2018 End: 01-31-2018 Office outpatient visit 15 minutes Suleiman Gil Work Phone: [facility] Comment on above: Upper respiratory tr act infection, unspecified type (Primary Dx) Start: 01-23-2018 Patient encounter procedure [facility] Start: 01-23-2018 End: 01-23-2018 Office outpatient visit 15 minutes Suleiman Gil Work Phone: [facility] Comment on above: Upper respiratory tr act infection, unspecified type (Primary Dx) Start: 04-06-2017 End: 04-08-2017 Evaluation and management of inpatient [facility] Start: 03-23-2017 Ambulatory [facility] Start: 01-19-2017 Ambulatory Elias Dwight Esau Facility:[place] Start: 12-27-2016 End: 12-27-2016 [facility] Start: 11-11-2016 Ambulatory Elias Dwight Esau Facility:[place] Start: 11-11-2016 End: 11-11-2016 Ambulatory Elias Cifuentes Work Phone: [facility] Procedures Date Procedure Procedure Detail Performing Clinician Start: 02-17-2023 Start: 02-17-2023 [facility] Angio (Right) Start: 02-01-2019 Transthoracic echocardiography Elias Putnam Work Phone: Start: 10-02-2018 Basic metabolic pane l calcium total Barbara L David Work Phone: Start: 10-02-2018 CBC, EDIF, PLATELET Paulette kevin Hernandez Work Phone: Start: 10-02-2018 Lipid panel Elias Lawrence [place] Work Phone: Start: 10-01-2018 Cardiac catheterization Elias [place] Work Phone: Start: 10-01-2018 CARDIO-PULMONARY EXE RCISE STUDY (SCANNED) Isaías B Juan Jose Work Phone: Start: 10-01-2018 Thromboplastin time partial plasma/whole blood Dimas Barry Work Phone: Start: 10-01-2018 CBC, EDIF, PLATELET Paulette Hernandez Work Phone: Start: 10-01-2018 Comprehensive metabolic panel Barbara Hernandez Work Phone: Start: 10-01-2018 Prothrombin time Barbara Hernandez Work Phone: Start: 10-01-2018 Thromboplastin time partial plasma/whole blood Dimas Barry Work Phone: Start: 10-01-2018 Thromboplastin time partial plasma/whole blood Barbara Hernandez Work Phone: Start: 09-30-2018 Thromboplastin time partial plasma/whole blood Barbara Hernandez Work Phone: Start: 09-30-2018 Lipid panel Isaías Viktor edouard Work Phone: Start: 09-30-2018 Assay of troponin quantitative Dimas Barry Work Phone: Start: 09-30-2018 Urinalysis microscopic only Marquis P Patrick Work Phone: Start: 09-30-2018 URINALYSIS, MACRO Marquis P Patrick Work Phone: Start: 09-30-2018 Thromboplastin time partial plasma/whole blood Layton Garcia Work Phone: Start: 09-30-2018 Standard ECG Dimas kiser Work Phone: Start: 09-30-2018 Assay of troponin quantitative Dimas Barry Work Phone: Start: 09-30-2018 Blood count complete automated Dimas Barry Work Phone: Start: 09-30-2018 Electrolyte panel Dimas Barry Work Phone: Start: 09-30-2018 Assay of troponin quantitative Dimas Barry Work Phone: Start: 09-30-2018 Thromboplastin time partial plasma/whole blood Layton Garcia Work Phone: Start: 09-30-2018 Thromboplastin time partial plasma/whole blood Barbara Kiser David Work Phone: Start: 09-29-2018 Assay of troponin quantitative Dimas Barry Work Phone: Start: 09-29-2018 Diagnostic radiograp hy of chest, PA Marquis Lawrence Patrick Work Phone: Start: 09-29-2018 Cultyp nuc acid amp prb cult/isolate ea orgnism Dimas Barry Work Phone: Start: 09-29-2018 Assay of troponin quantitative Layton Garcia Work Phone: Start: 09-29-2018 Blood count complete auto&auto difrntl wbc Marquis Lawrence Aptrick Work Phone: Start: 09-29-2018 Comprehensive metabolic panel Marquis Patrick Work Phone: Start: 09-29-2018 Prothrombin time Marquis Patrick Work Phone: Start: 09-29-2018 Thromboplastin time partial plasma/whole blood Layton J Radha Work Phone: Start: 09-29-2018 End: 09-29-2018 Standard ECG Layton J Radha Work Phone: Start: 03-30-2018 End: 03-30-2018 Diagnostic radiography of lumbar spine [facility] Goldberg Work Phone: Start: 03-30-2018 End: 03-30-2018 ORDERS (OUTSIDE) Historical Provider Plan of Treatment Date Care Activity Detail Author Start: 02-19-2023 End: 02-19-2023 [facility] Start: 02-18-2023 Hospital admission [facility] Start: 02-17-2023 Referral to principal accounts clerk [facility] Start: 02-12-2019 End: 02-12-2019 Office Visit 02/12/2019 Office Visit Cardiovascular Medicine Elias Putnam MD [address] [place] [address] [facility] Start: 01-21-2019 End: 01-21-2019 Appointment 01/21/2019 Appointment Cardiovascular Medicine [facility] Start: 11-11-2018 Influenza vaccination [facility] Start: 10-16-2018 End: 10-17-2019 Transthoracic echocardiography ECHOCARDIOGRAM Echocardiography Routine Stress-induced cardiomyopathy Expected: 10/16/2018, Expires: 10/17/2019 [facility] Comment on above: Expected: 10/16/2018, Expires: 0 Start: 10-09-2018 End: 10-09-2018 Office Visit 10/09/2018 Office Visit Family Medicine Suleiman Gil MD [address] [phone] [facility] Medicine Start: 2018 End: 07-13-2019 XR RIBS WITH CHEST, BILATERAL XR RIBS WITH CHEST, BILATERAL Imaging Routine Rib pain Cough Expected: 2018, Expires: 07/13/2019 [facility] Comment on above: Expected: 2018, Expires: 0 Start: 11-11-2017 Influenza vaccination INFLUENZA VACCINE (#1) [facility] Work Phone: Start: 2005 Pneumococcal vaccination PNEUMOCOCCAL VACCINE SERIES (1 of 2 - PCV13) [facility] Work Phone: Start: 1990 Colonoscopy COLON CANCER SCREENING DISCUSSION [facility] Work Phone: Start: 1990 Protein mass conc COLON CANCER SCREENING DISCUSSION [facility] Work Phone: Start: 1990 Zoster vaccine hzv live for subcutaneous use ZOSTER (SHINGLES) VACCINE (1 of 2) [facility] Start: 1980 Protein mass conc MAMMOGRAM SCREENING DISCUSSION [facility] Work Phone: Start: 1980 Screening mammography MAMMOGRAM SCREENING DISCUSSION [facility] Work Phone: Start: 1961 End: 1961 Screening for malignant neoplasm of cervix PAP SMEAR DISCUSSION [facility] Work Phone: Start: 07-13-1959 End: 07-13-1959 Third diphtheria, tetanus and acellular pertussis (DTaP) vaccination TDAP (ADULT) [facility] Work Phone: Start: 1958 End: 1958 Tetanus vaccination TETANUS [facility] Work Phone: Start: 1940 End: 1940 Screening for osteoporosis DEXA SCAN DISCUSSION [facility] Work Phone: Basic metabolic 2000 panel BASIC METABOLIC PANEL Lab Routine Every morning Lab until discontinued starting 10/01/2018, 1 completed [facility] Comment on above: Every morning Lab until discontinued sta rting 10/01/2018, 1 completed CBC, EDIF, PLATELET CBC, EDIF, P LATELET Lab Routine Every morning Lab until discontinued starting 10/01/2018, 2 completed [facility] Comment on above: Every morning Lab until discontinued sta rting 10/01/2018, 2 completed Patient referral [facility] Work Phone: Standard ECG [facility] End: 09-29-2018 Transthoracic echocardiography ECHOCARDIOGRAM Echocardiography Routine One Time for 1 Occurrences starting 09/29/2018 until 09/29/2018 [facility] Comment on above: One Time for 1 Occurrences starting 09/11 until 09/29/2018 Transthoracic echocardiography ECHOCARDIOGRAM Echocardiography Routine 10/01/2018 10:33 AM EDT [facility] XR RIBS WITH CHEST, BILATERAL XR RIBS WITH CHEST, BILATERAL Imaging Routine Rib pain Cough 2018 5:08 PM EDT [facility] Payers Date Payer Category Payer Medicare [id number] 2023 Self-pay 2017 Medicare [id number] 2017 Unknown xxxxxxxxxx [id number] 2016 Medicare MEDICARE MEDICAR E A AND B xxxxxxxxxxx 2016-Present [place], [place] xxxxxxxxxxx [id number] 2016 Medicare [id number] 2005 Medicare [id number] 1940 Unknown [id number] Unknown [id number] Social History Date Type Detail Facility Start: 11-12-2016 End: 12-28-2016 Tobacco smoking status [facility] Unknown if ever smoked [facility] Work Phone: Sex Assigned At Not on file [facility] Work Phone: Start: 01-31-2018 End: 02-17-2023 Tobacco smoking status NHIS Never smoker [facility] History of tobacco use Cigarette Smoker [facility] Work Phone: Start: 08-24-2016 Alcohol Comment occasionally [facility] Start: 10-16-2018 Alcohol intake No [facility] Start: 10-16-2018 End: 02-04-2019 Alcohol intake Current non-drinker of alcohol (finding) [facility] Start: 1940 Sex Assigned At Female F [facility] Medical Equipment Procedure Code Equipment Code Equipment Origin al Text Equipment Identifier Dates Accell Evo3 10cc Start: 04-06-2017 9mm Short Cage Start: 04-06-2017 Mariner Solid Sc rew6.5 X 35mm Start: 04-06-2017 Mariner Solid Sc rew 6.5x 40 Mm Start: 04-06-2017 Implant Bulk Charge Start : 04-06-[address] art: 04-06-2017 Mariner Set Screw Start: 04-06-2017 Precontoured Gary 5.5x 70 Start: 04-06-2017 Contoured Crossb ar Small Start: 04-06-2017 Accell Evo3 10cc Start: 04-06-2017 9mm Short Cage Start: 04-06-2017 Mariner Solid Sc rew6.5 X 35mm Start: 04-06-2017 Mariner Solid Sc rew 6.5x 40 Mm Start: 04-06-2017 Implant Bulk Charge Start : 04-06-[address] art: 04-06-2017 Mariner Set Screw Start: 04-06-2017 Precontoured Gary 5.5x 70 Start: 04-06-2017 Contoured Crossb ar Small Start: 04-06-2017 Accell Evo3 10cc Start: 04-06-2017 9mm Short Cage Start: 04-06-2017 Mariner Solid Sc rew6.5 X 35mm Start: 04-06-2017 Mariner Solid Sc rew 6.5x 40 Mm Start: 04-06-2017 Implant Bulk Charge Start : 04-06-[address] art: 04-06-2017 Mariner Set Screw Start: 04-06-2017 Precontoured Gary 5.5x 70 Start: 04-06-2017 Contoured Crossb ar Small Start: 04-06-2017 Accell Evo3 10cc Start: 04-06-2017 9mm Short Cage Start: 04-06-2017 Mariner Solid Sc rew6.5 X 35mm Start: 04-06-2017 Mariner Solid Sc rew 6.5x 40 Mm Start: 04-06-2017 Implant Bulk Charge Start : 04-06-[address] art: 04-06-2017 Mariner Set Screw Start: 04-06-2017 Precontoured Gary 5.5x 70 Start: 04-06-2017 Contoured Crossb ar Small Start: 04-06-2017 Accell Evo3 10cc Start: 04-06-2017 9mm Short Cage Start: 04-06-2017 Mariner Solid Sc rew6.5 X 35mm Start: 04-06-2017 Mariner Solid Sc rew 6.5x 40 Mm Start: 04-06-2017 Implant Bulk Charge Start : 04-06-[address] art: 04-06-2017 Mariner Set Screw Start: 04-06-2017 Precontoured Gary 5.5x 70 Start: 04-06-2017 Contoured Crossb ar Small Start: 04-06-2017 Accell Evo3 10cc Start: 04-06-2017 Accell Evo3 10cc Start: 04-06-2017 9mm Short Cage Start: 04-06-2017 9mm Short Cage Start: 04-06-2017 Mariner Solid Sc rew6.5 X 35mm Start: 04-06-2017 Mariner Solid Sc rew6.5 X 35mm Start: 04-06-2017 Mariner Solid Sc rew 6.5x 40 Mm Start: 04-06-2017 Mariner Solid Sc rew 6.5x 40 Mm Start: 04-06-2017 Implant Bulk Charge Start : 04-06-2017 Implant Bulk Charge Start : 04-06-[address] art: 04-06-[address] art: 04-06-2017 Mariner Set Screw Start: 04-06-2017 Mariner Set Screw Start: 04-06-2017 Precontoured Gary 5.5x 70 Start: 04-06-2017 Precontoured Gary 5.5x 70 Start: 04-06-2017 Contoured Crossb ar Small Start: 04-06-2017 Contoured Crossb ar Small Start: 04-06-2017 Accell Evo3 10cc Start: 04-06-2017 Accell Evo3 10cc Start: 04-06-2017 9mm Short Cage Start: 04-06-2017 9mm Short Cage Start: 04-06-2017 Mariner Solid Sc rew6.5 X 35mm Start: 04-06-2017 Mariner Solid Sc rew6.5 X 35mm Start: 04-06-2017 Mariner Solid Sc rew 6.5x 40 Mm Start: 04-06-2017 Mariner Solid Sc rew 6.5x 40 Mm Start: 04-06-2017 Implant Bulk Charge Start : 04-06-2017 Implant Bulk Charge Start : 04-06-[address] art: 04-06-[address] art: 04-06-2017 Mariner Set Screw Start: 04-06-2017 Mariner Set Screw Start: 04-06-2017 Precontoured Gary 5.5x 70 Start: 04-06-2017 Precontoured Gary 5.5x 70 Start: 04-06-2017 Contoured Crossb ar Small Start: 04-06-2017 Contoured Crossb ar Small Start: 04-06-2017 Accell Evo3 10cc Start: 04-06-2017 Accell Evo3 10cc Start: 04-06-2017 9mm Short Cage Start: 04-06-2017 9mm Short Cage Start: 04-06-2017 Mariner Solid Sc rew6.5 X 35mm Start: 04-06-2017 Mariner Solid Sc rew6.5 X 35mm Start: 04-06-2017 Mariner Solid Sc rew 6.5x 40 Mm Start: 04-06-2017 Mariner Solid Sc rew 6.5x 40 Mm Start: 04-06-2017 Implant Bulk Charge Start : 04-06-2017 Implant Bulk Charge Start : 04-06-[address] art: 04-06-[address] art: 04-06-2017 Mariner Set Screw Start: 04-06-2017 Mariner Set Screw Start: 04-06-2017 Precontoured Gary 5.5x 70 Start: 04-06-2017 Precontoured Gary 5.5x 70 Start: 04-06-2017 Contoured Crossb ar Small Start: 04-06-2017 Contoured Crossb ar Small Start: 04-06-2017 Accell Evo3 10cc Start: 04-06-2017 Accell Evo3 10cc Start: 04-06-2017 9mm Short Cage Start: 04-06-2017 9mm Short Cage Start: 04-06-2017 Mariner Solid Sc rew6.5 X 35mm Start: 04-06-2017 Mariner Solid Sc rew6.5 X 35mm Start: 04-06-2017 Mariner Solid Sc rew 6.5x 40 Mm Start: 04-06-2017 Mariner Solid Sc rew 6.5x 40 Mm Start: 04-06-2017 Implant Bulk Charge Start : 04-06-2017 Implant Bulk Charge Start : 04-06-[address] art: 04-06-[address] art: 04-06-2017 Mariner Set Screw Start: 04-06-2017 Mariner Set Screw Start: 04-06-2017 Precontoured Gary 5.5x 70 Start: 04-06-2017 Precontoured Gary 5.5x 70 Start: 04-06-2017 Contoured Crossb ar Small Start: 04-06-2017 Contoured Crossb ar Small Start: 04-06-2017 Accell Evo3 10cc [id number] Start: 04-06-2017 9mm Short Cage [id number] Start: 04-06-2017 Mariner Solid Sc rew6.5 X 35mm [id number] Start: 04-06-2017 Mariner Solid Sc rew 6.5x 40 Mm [id number] Start: 04-06-2017 Implant Bulk Charge [id number] Start : 04-06-2017 Mariner Polyaxial Head [id number] St art: 04-06-2017 Mariner Set Screw [id number] Start: 04-06-2017 Precontoured Gary 5.5x 70 [id number] Start: 04-06-2017 Contoured Crossb ar Small [id number] Start: 04-06-2017 Accell Evo3 10cc Start: 04-06-2017 9mm Short Cage Start: 04-06-2017 Mariner Solid Sc rew6.5 X 35mm Start: 04-06-2017 Mariner Solid Sc rew 6.5x 40 Mm Start: 04-06-2017 Implant Bulk Charge Start : 04-06-[address] art: 04-06-2017 Mariner Set Screw Start: 04-06-2017 Precontoured Gary 5.5x 70 Start: 04-06-2017 Contoured Crossb ar Small Start: 04-06-2017 Accell Evo3 10cc Start: 04-06-2017 Accell Evo3 10cc Start: 04-06-2017 9mm Short Cage Start: 04-06-2017 9mm Short Cage Start: 04-06-2017 Mariner Solid Sc rew6.5 X 35mm Start: 04-06-2017 Mariner Solid Sc rew6.5 X 35mm Start: 04-06-2017 Mariner Solid Sc rew 6.5x 40 Mm Start: 04-06-2017 Mariner Solid Sc rew 6.5x 40 Mm Start: 04-06-2017 Implant Bulk Charge Start : 04-06-2017 Implant Bulk Charge Start : 04-06-[address] art: 04-06-[address] art: 04-06-2017 Mariner Set Screw Start: 04-06-2017 Mariner Set Screw Start: 04-06-2017 Precontoured Gary 5.5x 70 Start: 04-06-2017 Precontoured Gary 5.5x 70 Start: 04-06-2017 Contoured Crossb ar Small Start: 04-06-2017 Contoured Crossb ar Small Start: 04-06-2017 Accell Evo3 10cc Start: 04-06-2017 Accell Evo3 10cc Start: 04-06-2017 9mm Short Cage Start: 04-06-2017 9mm Short Cage Start: 04-06-2017 Mariner Solid Sc rew6.5 X 35mm Start: 04-06-2017 Mariner Solid Sc rew6.5 X 35mm Start: 04-06-2017 Mariner Solid Sc rew 6.5x 40 Mm Start: 04-06-2017 Mariner Solid Sc rew 6.5x 40 Mm Start: 04-06-2017 Implant Bulk Charge Start : 04-06-2017 Implant Bulk Charge Start : 04-06-[address] art: 04-06-[address] art: 04-06-2017 Mariner Set Screw Start: 04-06-2017 Mariner Set Screw Start: 04-06-2017 Precontoured Gary 5.5x 70 Start: 04-06-2017 Precontoured Gary 5.5x 70 Start: 04-06-2017 Contoured Crossb ar Small Start: 04-06-2017 Contoured Crossb ar Small Start: 04-06-2017 Goals Date Patient Goal Desired Activity /State Functional Status Date Assessment Result Facility 02-19-2023 Functional status Patient at Baseline [facility] Work Phone: Mental Status Date Assessment Result Facility 02-19-2023 Cognitive function Cognitive Sta tus Patient at Baseline [facility] Work Phone: Clinical Notes 02-10-2023 to 03-02-2023 Note Date & Type Note Facility 03-02-2023 Evaluation note Encounter Date Diagnosis Assessment Notes Feb, Aortic valve stenosis, etiology of cardiac valve disease unspecified (ICD-10 - I35.0) Feb, Atherosclerosis of chitina coronary artery of chitina heart without angina pectoris (ICD-10 - I25.10) Feb, History of non-ST elevation myocardial infarction (NSTEMI) (ICD-10 - I25.2) Feb, Takotsubo syndrome (ICD-10 - I51.81) Feb, Other # CAD s/p NSTEMI 02/17/23 (Culprit possibly small obstructive LCX which is <2mm diameter and not amenable to PCI)# Shortness of breath - Inconsistent and not always exertional. Likely due to deconditioning as coronary disease and cadiomyopathy have been assessed.# Patient reported history of Takotsubo syndrome - At that time she was going through a terrible divorce and lost everything including her house. This episode in February 2023 may have been another episode of Takotsubo given largely negative workup.# Mild aortic stenosis# RLL 1.3cm pulmonary nodule (02/17/23) - PCP is ordering a CAT scan to evaluate. CXR 02/17/23 at [facility] shows clear lung ferreira with 1.3cm right basal lung nodule, no congestion.EKG 02/17/23 0613am - NSR [address]-T changes.Echo 02/17/23 -EF 65 to 70%, mild aortic stenosis, severely calcified posterior mitral valve with no stenosis and mild regurgitation, mild TR, RVSP 45mmHg.LHC 02/17/23 - Obstructive proximal left circumflex stenosis, however vessel is less than 2 mm diameter and PCI is not indicated; diffuse mild to moderate nonobstructive epicardial coronary artery disease in the other vessels with a right dominant circulation, normal resting ejection fraction 60% with normal wall motion, aortic stenosis noted on heart catheterization. - CAD: continue ASA, plavix, BB, statin, and Imdur.- : monitor symptoms. Repeat Echo in 1 year.- F/u in 1 yr. [employer] Other 12-10-2023 Discharge summary Author Carine Thompson [facility] February 19, 2023 8:57am Note Date/Time February 19, 2023 8:53am [facility] [address] [place] [address] Discharge Summary Signed Patient: Nancy Putnam MR#: [id number] : 1940 Acct:[id number] Age/Sex: 82 / F Adm Date: 3 Loc: 4 Room: [address] [place] [address]: Carine Thompson MD Copies to: NON STAFF Carine Thompson MD~ Providers Date of Admission: 02/17/23 Date of Discharge: 02/18/23 Discharging Provider: Carine Thompson Primary Care Provider: NON STAFF Consults: 02/17/23 12:59 Consult to Cardiology Routine Discharge Diagnosis (1) NSTEMI (non-ST elevated myocardial infarction): (2) Heart murmur: (3) Chest pain: (4) Noncompliance: (5) Right lower lobe pulmonary nodule: Final Diagnosis Final Discharge Diagnosis: As listed above Summary Hospital Course Hospital course: Nancy Putnam is an 83-year-old female with a past medical history of angina who presented to the ER yesterday with increased persistent chest pain.? She was found to have elevated serial troponins with slight ST depressions in the inferiorleads on EKG. Chest x-ray was done which was negative except for a 1.3 cm nodular radiodensity in the medial right lung base. She was placed on heparin and given IV Zofran and morphine and transferred to [facility] for further treatment and evaluation. She arrived in stable condition and without chest pain. Serial troponins every 8hours and lipid panel, CBC, and BMP were ordered. Metoprolol, aspirin, nitroglycerin, atorvastatin, and Brilinta were started and an echocardiogram wasordered. Heparin was held and patient was n.p.o. in anticipation of a cardiac catheterization and cardiology was consulted. Cardiac catheterization was completed which showed lesion in the proximal left circumflex artery that was not amenable with PCI and otherwise diffuse mild to moderate nonobstructive epicardial coronary artery disease. Echocardiogram showed ejection fraction of 65 to 70% with mild aortic valve stenosis. Recommendation to continue aspirin and Plavix for 1 year alongside statin, metoprolol, and Imdur at discharge for prevention of further cardiac complications. On 02/18: Patient was cleared by cardiology to go home however given the significant rise of her troponin I recommended her to stay for at least another 24 hours to monitor her condition. Patient was not happy with my recommendationbut reluctantly agreed to stay This morning 02/19: As I entered the room I found the patient sitting in a chaircrying and requesting to be discharged home as soon as possible. She is not willing to stay another midnight for any additional diagnostic or therapeutic intervention no matter how important it is Patient denies having chest pain or shortness of breath. She denies any other symptoms. At this time, I do not have any clear or strong clinical justification to extendinpatient hospitalization against cardiology clearance and against her will and desire to be discharged home soon as possible. On the chest x-ray that was done at outside hospital, a lung nodule was seen in the right lung. This could be malignant and considered be malignant until proven otherwise. I talked to patient about this daily and also discussed this with her daughter. This will need to be investigated further. She would need to have a CAT scan of the chest within the next 2 weeks to be arranged by her PCP and additional needed diagnostic and therapeutic intervention may be needed which may include but not limited to bronchoscopy, having a PET scan, following up with the pulmonology team. Noncompliance: Patient repeatedly stated that she does not have a primary care doctor, she does not want to see 1, she does not want me to arrange for her to see 1. She does not want me to arrange for her to have follow-up CAT scan. I stressed the importance of following up with heart doctor, PCP, getting CAT scan of the chest with the patient and her daughter. All are aware of significance and the potential implication if it is not done correctly. Her daughter promised to put the pressure on patient to proceed with needed medical care in the outpatient setting Patient will require close and frequent monitoring as well as additional work- up, investigation and therapeutic intervention that could take place from this point on post discharge. That is to prevent relapse, decompensation, rehospitalization and other medical implications. I instructed patient to ask her primary care doctor to obtain [facility] record entirely to address abnormalities seen on labs and imagingthat I have and have not addressed during this hospitalization, follow-up on pending blood work, imaging and pathology is if available and to follow-up on needed medical care in the outpatient setting. Condition Condition at Discharge: Stable Status at Discharge Functional status at discharge: independent ambulation Overall status at discharge: patient is back to baseline Time Spent with Patient Time spent providing/coordinating discharge services (# min): 45 Surgeries and Procedures Operation Date: 02/17/23 15:00 Actual Procedures p CL LHC & COR Angio(Right) - Rei Atwood MD Diagnostic Studies Completed and Pending Studies Pending studies at discharge: 02/17/23 14:18 ECG 12 lead ECG Routine 02/18/23 08:16 Redraw Potassium [CHEM] Stat 02/19/23 05:00 ECG 12 lead ECG IN AM 02/20/23 05:00 ECG 12 lead ECG IN AM Labs on day of discharge: 02/18/23 04:46: PHA Creatinine Clear 42.88, Sodium 135 L, Potassium , Chloride 101, Carbon Dioxide 28.3, Anion Gap TNP, BUN 11, Creatinine 0.71, Est GFR (CKD-EPI) > 60.0, Glucose 110 H, Calcium 9.0, Triglycerides 90, Cholesterol 157, LDL Cholesterol, Calc 93, VLDL Cholesterol 18, HDL Cholesterol 46, Cholesterol/HDL Ratio 3.4 02/18/23 04:46: Corrected WBC 5.3, Uncorrected WBC Count 5.3, RBC 3.86, Hgb 12.5, Hct 37.2, MCV 96.5, MCH 32.3, MCHC 33.5, RDW 13.3, Plt Count 166, MPV 9.3, Neut % (Auto) 56.6, Lymph % (Auto) 28.7, [place] % (Auto) 13.6, Eos % (Auto) 0.4, Baso % (Auto) 0.7, Nucleat RBC Rel Count 0.1, Neut # (Auto) 3.0, Lymph # (Auto) 1.5, [place] # (Auto) 0.7, Eos # (Auto) 0.0, Baso # (Auto) 0.0 02/18/23 00:24: Troponin I High Sens 64568.0 H* 02/17/23 14:14: Troponin I High Sens 8318.9 H* Exam Physical Exam Vital Signs: Temp Pulse Resp BP Pulse Ox O2 Del Method 98.2 F 68 18 114/62 96 Room Air 02/18/23 04:00 02/18/23 04:00 02/18/23 04:00 02/18/23 04:00 02/18/23 04:00 02/18/23 04:00 Narrative: [pt is awake and alert. oriented to place, time and person HEENT: [place] conjunctiva and NL buccal mucosa Neck: Supple, no tenderness Endocrine: No Thyromegaly. Vascular: No JVD or carotid bruit. Lymphatic: No cervical lymphadenopathy. Chest: CTA no DTP. Heart RRR, no extra sound or murmur. Abd: Soft, no tenderness, no rebound and no rigidity. Increase abd girth therefore clinically I could not exclude the possibility of intra abd mass or organomegaly. LE: No cyanosis or clubbing, no varices or edema. Neuro: A A O. Nl speech, comprehension and attention. Nl and symetrical motor and tone examination through out. []] Const General: cooperative, comfortable and no acute distress Orientation: alert, awake and oriented x3 HEENT Head: normal to inspection Resp Effort & Inspection: normal respiratory effort Auscultation: clear to auscultation bilaterally, no crackles, no rales and no rhonchi Cardio Rate: regular rate Rhythm: regular rhythm Other: Holosystolic murmur heard greatest in the aortic area to the right of the sternum with radiation to the carotids consistent with aortic stenosis diagnosed by echocardiography. GI Palpation: soft, no hepatosplenomegaly, no guarding, no masses and no splenomegaly Auscultation: normal bowel sounds Skin General: no rashes or lesions noted Neuro General: patient alert, patient awake and patient oriented x3 Psych Mood: congruent mood Affect: normal affect Discharge Plan Discharge Plan Patient Disposition: Home Activity: Other Comment: Post-heart cath instructions Diet: Low-Fat and Low-Sodium Additional Instructions: I may not have addressed or treated all of your medical illnesses or the abnormal blood work or imaging studies during this hospitalization. Please ask your primary care provider to obtain [facility] records entirely to follow up on all of the abnormal physical, laboratory, and imaging findings that I have not addressed. Please take your medication as directed. Please follow-up with your doctor. Chest x-ray done at [place] showed that you have lung mass on the right side. This could be cancerous. You would need to have a CAT scan of the chest to be arranged by your primary care doctor. Additional workup, investigation, referral and therapeutic intervention will be addressed by your primary care doctor. You may need to follow-up with lung specialist. You may need to have a PET scan. These are to be arranged by your primary care doctor. This is very important and significant I may not have addressed or treated all of your medical illnesses or the abnormal blood work or imaging studies during this hospitalization. Please ask your primary care provider to obtain [facility] records entirely to follow up on all of the abnormal physical, laboratory, and imaging findings that I have not addressed. Please return back to the emergency room or seek medical attention if your symptoms worsen or return. Discharging you from [facility] does not mean that your medical care ends here and now. You may still need additional monitoring, work up, investigation, and treatment plan to be handled from this point on by out patient providers including your primary care provider and specialists. For any medication question, please contact your retail pharmacist or your primary care provider. Thank you. Please return back to the emergency room or seek medical attention if your symptoms worsen or return. Discharging you from [facility] does not mean that your medical care ends here and now. You may still need additional monitoring, work up, investigation, and treatment plan to be handled from this point on by out patient providers including your primary care provider and specialists. For any medication question, please contact your retail pharmacist or your primary care provider. Thank you. DISCHARGE INSTRUCTIONS FOR CARDIAC LICENSED HOME INSPECTOR PHONE NUMBER OF YOUR PHYSICIAN: [phone] PROCEDURE: Heart Cath The following instructions have been prepared to help you care for yourself, or be cared for upon your return home. 1. You were given conscious sedation. Do not operate a vehicle, power tools, make important decisions, or drink alcohol for 24 hours. You might be drowsy or light headed. Return to the Emergency Room if you have trouble breathing, walking or nausea and vomiting. 2. FOR BLEEDING: Apply continuous pressure to the site and call 911. 3. Operative Site Care: Keep the dressing clean and dry. You may change the dressing only if soiled or wet. You may remove the dressing the following morning. You may wash over the puncture site in the shower. If the puncture site is at the wrist no soaking for 3 days. Some bruising or slight swelling may be present. -Signs of infection are redness, warmth, swelling, getting more sore, colored drainage, fever or chills. -Should the arm or leg become cold, numb, blue or white, call the principal accounts clerk immediately. 4. ACTIVITY: You are advised to go directly home from the hospital. Restrict your activities for the rest of the day. Resume light or normal activities tomorrow. Do not engage in any activity that will stress the puncture site. Avoid heavy lifting (over 15 lbs.), straining or bending at the catheter site for 48 hours after discharge. If the puncture site is at the wrist do not manipulate wrist for 24 hours and no lifting more than 3 lbs for 3 days. 5. DIET:You may eat your regular diet when you desire. 6. MEDICATIONS: Resume your daily prescription schedule. Prescriptions may be sent with you if needed. Use as directed. When taking pain medications, you may experience dizziness or drowsiness. Do not drink alcohol or drive when taking pain medications. 7. If you should experience episodes of angina e.g. chest discomfort, heaviness, tightness, pressure, burning, with or without radiation to the neck, jaws, arms, or back- Use 1 Nitrostat under your tongue every 5-10 minutes, and up to 3 tablets. If no relief- Call 911 and go to the nearest Emergency Room. -Notify the office for recurrent angina, chest pain or other concerns. You may NOT drive yourself home! Follow the medication instructions provided on your discharge. If the dosages and instructions on this sheet differ from the dosage and instructions on the bottle, follow the instructions on the bottle. [facility] is not responsible for incorrect prescription information provided by the patient during their visit. Do not stop your medications without consulting your health care provider. Please take the list with you to your next doctor's appointment. Prescriptions: New atorvastatin 80 mg Tablet 80 mg PO QPM Qty: 30 1RF isosorbide mononitrate 30 mg Tablet Extended Release 24 Hr 30 mg PO QAM Qty: 30 1RF clopidogrel 75 mg Tablet 75 mg PO DAILY Qty: 30 1RF nitroglycerin 0.4 mg Tablet, Sublingual 0.4 mg sublingual Q5M PRN (Reason: Chest Pain) Qty: 25 1RF metoprolol succinate 25 mg Tablet Extended Release 24 Hr 25 mg PO DAILY Qty: 30 1RF aspirin 81 mg Tablet,Delayed Release (Dr/Ec) 81 mg PO DAILY Qty: 30 1RF No Action No known home meds Follow Up: [facility] - Cardiology [Provider Group] (Call office on Monday to schedule follow-up with Senior Marketing Analyst. ) [facility] [Physician] - ([facility] is accepting new patients. Call office on Monday to arrange follow-up to become established with a Primary Care Provider. ) Documented By: Carine Thompson MD 02/18/23905 Signed By: <Electronically signed by Carine Thompson MD> 02/19/23 0857 [facility] Work Phone: 1(751) 364-879612-09-2023 Progress note Author Carine Thompson [facility] February 18, 2023 1:24pm Note Date/Time February 18, 2023 1 :24pm [facility] [address] [place] [address] Progress Note Signed Patient: Nancy Putnam MR#: [id number] : 1940 Acct:[id number] Age/Sex: 82 / F Adm Date: 3 Loc: Room: [address] [place] [address] Type: ADM IN Attending Dr: Carine Thompson MD Copies to: ~ Date of Service: 02/18/2023 Progress Narrative Note PROGRESS NOTE Progress Note: I went back to patient's room to let her know that I do not feel comfortable releasing her back home today despite cardiology clearance due to significant rise of her troponin. Patient continues to be chest pain-free. I explained to patient and her daughter at the bedside my fear that the patient could develop complication secondary to her MS within the first 24 to 48 hours therefore I recommend her to stay for at least another day. Patient is not happy about my recommendation to stay another day. She would not look at me. She is not happy about staying another day and requesting to be discharged home to Her daughter was able to convince her to stay another day. I also made the daughter aware of the lung mass that could potentially be cancerous. Her daughter stated that she will make sure her [facility] follow-up with PCP and proceed with additional needed workup in the outpatient setting. Documented By: Carine Thompson MD 02/18/231321 Signed By: <Electronically signed by Carine Thompson MD> 02/18/23 1324 [facility] Work Phone: [phone]) 874-486612-09-2023 Progress note Author Carine Thompson [facility] February 18, 2023 11:26am Note Date/Time February 18, 2023 1 1:26am [facility] [address] [place] [address] Hospitalist Progress Note Signed Patient: Nancy Putnam MR#: [id number] : 1940 Acct:[id number] Age/Sex: 82 / F Adm Date: 3 Loc: 4 Room: [address] [place] [address] Type: ADM IN Attending Dr: Carine Thompson MD Copies to: ~ Date of Service: 02/18/2023 Subjective Subjective Narrative: Patient is chest pain-free. No headaches, loss of conscious or seizure. No abdominal pain, nausea or vomiting. Exam Physical Exam Vital Signs: Temp Pulse Resp BP Pulse Ox O2 Del Method 99.8 F H 78 18 125/75 95 Room Air 02/18/23 11:10 02/18/23 11:10 02/18/23 11:10 02/18/23 11:10 02/18/23 11:10 02/18/23 11:10 Narrative: [pt is awake and alert. oriented to place, time and person HEENT: [place] conjunctiva and NL buccal mucosa Neck: Supple, no tenderness Endocrine: No Thyromegaly. Vascular: No JVD or carotid bruit. Lymphatic: No cervical lymphadenopathy. Chest: CTA no DTP. Heart RRR, no extra sound or murmur. Abd: Soft, no tenderness, no rebound and no rigidity. Increase abd girth therefore clinically I could not exclude the possibility of intra abd mass or organomegaly. LE: No cyanosis or clubbing, no varices or edema. Neuro: A A O. Nl speech, comprehension and attention. Nl and symetrical motor and tone examination through out. []] Objective Lab Results 02/18/23 04:46 02/18/23 08:16 Meds Allergies and Active Meds Allergies ascorbic acid Adverse Reaction (Verified 02/17/23 13:13) Unknown Reaction Active Meds: Active Medications Generic Name Dose Route Start Last Admin Trade Name Freq PRN Reason Stop Dose Admin Acetaminophen 1,000 mg 02/17/23 20:28 02/17/23 21:10 Acetaminophen 500 Mg Tablet PO 02/17/24 20:27 1,000 mg Q6H PRN Administration Mild Pain Al Hydrox/Mg Hydrox/Simethicone 30 ml 02/17/23 20:28 Mag Hydrox/Al Hydrox/Simeth 30 Ml Udc PO 02/17/24 20:27 Q4H PRN Epigastric Distress (Non-card) Aspirin 81 mg 02/17/23 14:30 02/18/23 08:56 Aspirin 81 Mg Tablet. PO 02/17/24 14:29 Not Given DAILY [facility] Atorvastatin Calcium 80 mg 02/17/23 14:20 02/17/23 18:31 Atorvastatin 80 Mg Tablet PO 02/17/24 14:19 Not Given QPM [facility] Clopidogrel Bisulfate 75 mg 02/18/23 09:00 02/18/23 08:56 Clopidogrel Bisulfate 75 Mg Tablet PO 02/18/24 08:59 Not Given DAILY [facility] Docusate Sodium 100 mg 02/17/23 20:28 Docusate 100 Mg Capsule PO 02/17/24 20:27 QHS PRN Constipation Hydralazine HCl 10 mg 02/17/23 13:24 Hydralazine 20 Mg/Ml Vial IV-PUSH 02/17/24 13:23 Q4H PRN Blood Pressure - High Isosorbide Mononitrate 30 mg 02/18/23 09:00 02/18/23 08:56 Isosorbide Mononitrate 24hr Er 30 Mg Tab.Er.24h PO 02/18/24 08:59 Not Given QAM [facility] Metoprolol Succinate 25 mg 02/17/23 14:20 02/18/23 08:56 Metoprolol Succinate 25 Mg Tab.Er.24h PO 02/17/24 14:19 Not Given DAILY [facility] Miscellaneous Information 1 each 02/17/23 15:41 Consult To Pharmacy MISCELLANE 02/17/24 15:40 .PHACONSULT PRN ZZ.Pharmacy Consult Protocol Morphine Sulfate 4 mg 02/17/23 20:28 Morphine Sulfate 4 Mg/Ml Cartridge IV-PUSH Q20M PRN Chest Pain Nitroglycerin 0.4 mg 02/17/23 20:28 Nitroglycerin 0.4 Mg Tab.Subl SUBLINGUAL 02/17/24 20:27 Q5M PRN Chest Pain Ondansetron HCl 4 mg 02/17/23 20:28 Ondansetron 4 Mg/2 Ml Vial IV-PUSH 02/17/24 20:27 Q6H PRN Nausea And Vomiting Sodium Chloride 10 ml 02/17/23 14:30 02/18/23 08:56 Sodium Chloride 0.9 % 10 Ml Syringe IV-PUSH 02/17/24 14:29 Not Given Q8H HILL Sodium Chloride 0 ml 02/17/23 22:00 02/18/23 06:00 Sodium Chloride 0.9 % 10 Ml Syringe IV-PUSH 02/17/24 21:59 10 ml QSHIFT HILL Administration Tramadol HCl 50 mg 02/17/23 20:28 Tramadol 50 Mg Tablet PO 08/16/23 20:27 Q6H PRN Moderate Pain Triamcinolone Acetonide 1 applic 02/17/23 20:28 Triamcinolone 0.1% Cream 15 Gm Tube TOPICAL 02/17/24 20:27 QID PRN Irritation A&P - Hospitalist Assessment/Plan (1) NSTEMI (non-ST elevated myocardial infarction): (2) Heart murmur: (3) Chest pain: (4) Right lower lobe pulmonary nodule: (5) Noncompliance: Plan Nancy Putnam is an 83-year-old female with a past medical history of angina presenting today with increased persistent chest pain. She presented to the ER following a few hours of continuous chest pain and was found to have elevated serial troponins with slight ST depressions in the inferior leads on EKG. she has a history of persistent chest pain occurring 2 years ago with occasional exacerbation of her symptoms in between. Need for further cardiac workup. 1) NSTEMI S/p cardiac cath. Positive for disease in the circumflex. Please refer to cath report on the recommendation by cardiology to proceed with medical treatment. No intervention is recommended or completed Significant rise of her troponin. Patient wants to go home however, trying to convince her to stay for at least another 24 hours for observation to ensure that she does not develop any recurrent chest pain or cardiac dysrhythmia 2) Lung nodule - 1.3 cm nodular radiodensity of the medial right lung base per CXR from ER - Some history of smoking - Will likely need CT for further evaluation of nodule I discussed this with the patient at length. Patient does not appear to be serious about taking care of her medical issues. I informed her that she would need to have a CAT scan of the chest to be arranged by her PCP. I offered to arrange CT for her but she became mad and stated that she will arrange it for herself. 3) noncompliance. Patient stated that she does not have a primary care doctor. She stated that she called all doctors in [facility] and no one is willing to take care of the patient. I offered to arrange for her an appointment to see Dr. Houston at the family [facility] but she declined. She does not appear that she wants to take care of her medical needs. She does not want me to help her arrange for needed medical care in the outpatient setting. Documented By: Carine Thompson MD 02/18/231121 Signed By: <Electronically signed by Carine Thompson MD> 02/18/236 [facility] Work Phone: 1([phone]) 286-326412-09-2023 Progress note Author Miguel Rasmussen [facility] February 18, 2023 11:24am Note Date/Time February 18, 2023 1 1:23am [facility] [address] [place] [address] Cardiology Progress Note Signed Patient: Nancy Putnam MR#: [id number] : 1940 Acct:[id number] Age/Sex: 82 / F Adm Date: 3 Loc: Room: [address] [place] [address] Type: ADM IN Attending Dr: Carine Thompson MD Copies to: ~ Date of Service: 02/18/2023 Subjective Principal diagnosis: NSTEMI Interval history: Patient stable. No chest pain Exam Physical Exam Vital Signs: Temp Pulse Resp BP Pulse Ox O2 Del Method 99.8 F H 78 18 125/75 95 Room Air 02/18/23 11:10 02/18/23 11:10 02/18/23 11:10 02/18/23 11:10 02/18/23 11:10 02/18/23 11:10 Const General: cooperative Neck Neck: supple Lymphatic: no lymphadenopathy noted Resp Effort & Inspection: normal respiratory effort Auscultation: clear to auscultation bilaterally Cardio Palpation: normal PMI Rate: regular rate Rhythm: regular rhythm Heart Sounds: S1 normal and S2 normal Skin General: dry skin Extrem General: full ROM and no clubbing, cyanosis or edema Objective Labs 02/18/23 04:46 02/18/23 08:16 Labs: Laboratory Results - last 24 hr 02/17/23 02/18/23 02/18/23 14:14 00:24 04:46 Corrected WBC 5.3 Uncorrected WBC Count 5.3 RBC 3.86 Hgb 12.5 Hct 37.2 MCV 96.5 MCH 32.3 MCHC 33.5 RDW 13.3 Plt Count 166 MPV 9.3 Neut % (Auto) 56.6 Lymph % (Auto) 28.7 [place] % (Auto) 13.6 Eos % (Auto) 0.4 Baso % (Auto) 0.7 Nucleat RBC Rel Count 0.1 Neut # (Auto) 3.0 Lymph # (Auto) 1.5 [place] # (Auto) 0.7 Eos # (Auto) 0.0 Baso # (Auto) 0.0 PHA Creatinine Clear Sodium Potassium Chloride Carbon Dioxide Anion Gap BUN Creatinine Est GFR (CKD-EPI) Glucose Calcium Troponin I High Sens 8318.9 H* 34367.0 H* Triglycerides Cholesterol LDL Cholesterol, Calc VLDL Cholesterol HDL Cholesterol Cholesterol/HDL Ratio 02/18/23 02/18/23 04:46 08:16 Corrected WBC Uncorrected WBC Count RBC Hgb Hct MCV MCH MCHC RDW Plt Count MPV Neut % (Auto) Lymph % (Auto) [place] % (Auto) Eos % (Auto) Baso % (Auto) Nucleat RBC Rel Count Neut # (Auto) Lymph # (Auto) [place] # (Auto) Eos # (Auto) Baso # (Auto) PHA Creatinine Clear 42.88 Sodium 135 L Potassium 4.0 Chloride 101 Carbon Dioxide 28.3 Anion Gap TNP BUN 11 Creatinine 0.71 Est GFR (CKD-EPI) > 60.0 Glucose 110 H Calcium 9.0 Troponin I High Sens Triglycerides 90 Cholesterol 157 LDL Cholesterol, Calc 93 VLDL Cholesterol 18 HDL Cholesterol 46 Cholesterol/HDL Ratio 3.4 A&P - Cardiology (1) NSTEMI (non-ST elevated myocardial infarction): Code(s): I21.4 - Non-ST elevation (NSTEMI) myocardial infarction Status: Acute Plan Assessment 1. Acute coronary syndrome due to a proximal circumflex disease. Vessel felt too small for intervention per intervention cardiology and medical therapy was recommended 2. Mild aortic stenosis 3. Mild hyperlipidemia LDL of 93 Plan 1. Patient appears stable and can be discharged home 2. Continue aspirin, Plavix, high-dose statin, beta-blockers and nitrate 3. If had recurrent chest pain consideration for high risk PCI might be given 4. Follow-up with [facility] cardiology Documented By: Miguel Rasmussen MD 02/18/231120 Signed By: <Electronically signed by MD Miguel Rasmussen> 02/18/23 112[address] [facility] Work Phone: 1([phone]) 586-978212-08-2023 Progress note Author Armin Rios [facility] February 17, 2023 3:58pm Note Date/Time February 17, 2023 3 :55pm [facility] [address] [place] [address] Cardiology Progress Note Signed Patient: Nancy Putnam MR#: [id number] : 1940 Acct:[id number] Age/Sex: 82 / F Adm Date: 3 Loc: Room: [address] [place] [address] Type: ADM IN Attending Dr: Carine Thompson MD Copies to: ~ Date of Service: 02/17/2023 Subjective Principal diagnosis: NSTEMI Interval history: UPDATE NOTE - 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 - Degree of troponin elevation may be multifactorial, due to CAD above and possible aortic valve disease for which Echo is pending. - Thus will treat medically. She should continue ASA & Plavix x 1 year. Also statin, Metoprolol and Imdur. These should be continued at discharge. Exam Physical Exam Vital Signs: Temp Pulse Resp BP Pulse Ox O2 Del Method 98.1 F 71 18 174/81 H 95 Room Air 02/17/23 13:10 02/17/23 13:10 02/17/23 13:10 02/17/23 13:10 02/17/23 13:10 02/17/23 13:10 Narrative: Physical Exam: General: Elderly, NAD, A&Ox3, Cooperative HEENT: NC/AT, PERRLA, EOMI, Neck supple Lungs: CTAB; No crackles/rhonchi/wheezes Heart: S1S2 normal, Regular rhythm, 2/6 systolic ejection murmur Extremities: No edema; Peripheral pulses 2+ Abdomen: Soft, non-tender, non-distended, no masses, BS+ Skin: Warm, Dry, No gross lesions Neuro: CN grossly intact, No focal motor or sensory deficits Psych: Normal mood & affect ANGEL Risk Score ANGEL Risk Score Predictor Historical: Age > 65 Years Old Presentation: Recent (>/=24hr) Angina and Increased Cardiac Marker Score Risk Score (0-7): 3 A&P - Cardiology (1) NSTEMI (non-ST elevated myocardial infarction): Code(s): I21.4 - Non-ST elevation (NSTEMI) myocardial infarction Status: Acute (2) Heart murmur: Code(s): R01.1 - Cardiac murmur, unspecified Status: Acute (3) Chest pain: Code(s): R07.9 - Chest pain, unspecified Status: Acute Documented By: Armin Rios MD 11/02 155 Signed By: <Electronically signed by Armin Rios MD> 02/17/23 75[address] [facility] Work Phone: [phone] 161-643512-08-2023 Consult note Author Armin Rios [facility] February 17, 2023 3:44pm Note Date/Time February 17, 2023 2 :55pm [facility] [address] [place] [address] Cardiology Consult Note Signed with Addenda Patient: Nancy Putnam MR#: [id number] : 1940 Acct:[id number] Age/Sex: 82 / F Adm Date: 3 Loc: Room: [address] [place] [address] Type: ADM IN Attending Dr: Carine Thompson MD Copies to: NON STAFF MD Carine Baca MD~ ADDENDUM1 Correction: 04/18 NASH was heard. Will look to Echo for hemodynamic eval of AV gradient. Addendum Documented By: Armin Rios MD 02/17/23 154 Addendum Signed By: <Electronically signed by Armin Rios MD> 02/17/23 1544 Cardiology HPI History of Present Illness Consult Date: 02/17/23 Reason for Consult: NSTEMI HPI: Ms. Putnam is a 82 year old female with no significant PMH below who presented [facility] ED on 02/17/23 for substernal chest pressure and dyspnea that started at 5:30am. CP was left sided, under the rib cage, radiates to lt arm, and non-reproducible. Denies any orhtopnea, leg swelling, palpitations, or syncope. Alsodeneis cough, wheezing, heachache, visual changes, rash. She has no know h/o CADand prior had a similar episode that was diagnosed as broken heart syndrome . She received ASA and NTG without resolutioin of symptoms. At [place], EKG did not show acute ST-T changes but troponin trended 75-->1459. Her only CAD risk factor is age. She is at baseline very active at home and [facility], lives with 2 cats and a dog, walks regularly with no anginal symptoms. Vitals where normal at [place] (Temp 97.7, HR 60s, BP 120/60s, spo2 94% on roomair) and has continued to be stable. At the ER she received zofran and morphine.Repeat EKG showed no dynamic changes. When second troponin came back she was started on Heparin. Hgb 12.3, Plt 148, sCr 0.80. Due to concern for NSTEMI was transferred to [facility]. Review of Systems Review of Systems All other systems reviewed & are negative unless noted below or in HPI [facility] Medical History [place] NSTEMI (non-ST elevated myocardial infarction) Meds Medications and Allergies Allergies ascorbic acid Adverse Reaction (Verified 02/17/23 13:13) Unknown Reaction Exam Physical Exam Vital Signs: Temp Pulse Resp BP Pulse Ox O2 Del Method 98.1 F 71 18 174/81 H 95 Room Air 02/17/23 13:10 02/17/23 13:10 02/17/23 13:10 02/17/23 13:10 02/17/23 13:10 02/17/23 13:10 Narrative: Physical Exam: General: Elderly, NAD, A&Ox3, Cooperative HEENT: [place]/AT, PERRLA, EOMI, Neck supple Lungs: CTAB; No crackles/rhonchi/wheezes Heart: S1S2 normal, Regular rhythm, No murmurs/rubs/gallop, No JVD Extremities: No edema; Peripheral pulses 2+ Abdomen: Soft, non-tender, non-distended, no masses, BS+ Skin: Warm, Dry, No gross lesions Neuro: CN grossly intact, No focal motor or sensory deficits Psych: Normal mood & affect Results Labs Lab results: Intake and Output 02/16/23 02/17/23 02/17/23 23:59 07:59 15:59 Other: Weight 59.8 kg Patient Weight 02/17/23 23:59 Weight 59.8 kg A&P - Cardiology (1) NSTEMI (non-ST elevated myocardial infarction): Code(s): I21.4 - Non-ST elevation (NSTEMI) myocardial infarction (2) Heart murmur: Code(s): R01.1 - Cardiac murmur, unspecified (3) Chest pain: Code(s): R07.9 - Chest pain, unspecified Plan 82yo F who presented with chest pain and troponin elevation to [facility] 02/17/23, transferred to [facility] for possible NSTEMI. # NSTEMI # Chest pain # Patient reported history of Takotsubo syndrome # RLL 1.3cm pulmonary nodule (02/17/23) CXR 02/17/23 at [facility] shows clear lung ferreira with 1.3cm right basal lung nodule, no congestion. EKG 02/17/23 0613am - NSR [address]-T changes. Echo - Pending. - Heparin gtt. NPO for [facility]. - ASA, BB, statin. - Get Echo, Lipids, A1c. - Remainder of the plan will be determined by [facility] findings. Will follow. Documented By: Armin Rios MD 11/02 1451 Signed By: <Electronically signed by Armin Rios MD> 02/17/23 1403 [facility] Work Phone: 1(223) 347-210512-08-2023 History and physical note Author Carine Thompson [facility] February 17, 2023 2:20pm Note Date/Time February 17, 2023 2 :20pm [facility] [address] [place] [address] Hospitalist H&P Signed Patient: Nancy Putnam MR#: [id number] : 1940 Acct:[id number] Age/Sex: 82 / F Adm Date: 3 Loc: 4 Room: [address] [place] [address] Type: ADM IN Attending Dr: Carine Thompson MD Copies to: NON STAFF Carine Thompson MD~ HPI DATE OF EXAMINATION: 02/17/23 CHIEF COMPLAINT: chest pain HISTORY OF PRESENT ILLNESS: Nancy Putnam is an 83-year-old female with a past medical history of angina presenting today with increased persistent chest pain. She presented to the ER following a few hours of continuous chest pain and was found to have elevated serial troponins with slight ST depressions in the inferior leads on EKG. Chest x-ray was done which was negative except for a 1.3 cm nodular radiodensity in the medial right lung base. BNP was 292, glucose was 161. She took a 325 mg aspirin at home and to nitroglycerin on the way to the emergency room. She was placed on heparin and given IV Zofran and morphine. On interview, Nancy was calm, in no distress, and without pain. She said she had a similar episode of chest pain 2 years ago in which she was told that she may have had heart attack. She says that this time she completed a cardiac catheterization in which she was told that 1 unspecified coronary vessel was 50%occluded. Today, she said that at the ER she felt like she had something sitting on her chest that was making it hard for her to breathe with some palpitations following each instance of chest pain. She said her symptoms started the day before last and only had chest pressure for a few hours in the morning but it went away, but then the chest pain recurred and got worse prompting her visit to the ER. She says she tried to pull off her visit to the ER for as long as possible but the pain persisted and caused her to begin vomiting. She says she has had similar instances of chest pain in between the time she was seen in the ER 2 years ago and now, but says that they are infrequent occurring every few months and that the pain only subsides after a few hours. She says the symptoms are exacerbated by stress and holiday planning, and denies chest pain being caused by exertion. But he says she takes no medications for the management of any chronic medical conditions and has not regularly followed with a primary care provider since she was 30 years old. She says she drinks alcohol occasionally and quit smoking many years ago . She reports a family history of multiple heart attacks in her mother and stroke in her father. ROS General: Denies fatigue, fever Cardiovascular: Denies chest pain today, palpitations today, edema Pulmonary: Denies shortness of breath, cough, wheezing, sputum production GI: Denies abdominal pain, heartburn, N/V, constipation and diarrhea : Denies dysuria, hematuria, polyuria. Neurological: Denies new numbness or weakness, history of stroke, numbness, paresthesias, headaches, changes in mental status Physical exam General: Not in any acute distress Skin: Intact HEENT: Head atraumatic, face symmetrical. Pulm: Lungs clear to auscultation bilaterally without wheezing rhonchi or crackles Cardio: Regular rate and rhythm, holosystolic murmur loudest in the aortic area to the right of the sternum with radiation to the carotid arteries Abdomen: Nontender to palpation, bowel sounds present x 4 Musculoskeletal: Moves all extremities, normal strength all extremities. Neuro: Patient alert, oriented x3. CN III, IV, : EOM intact, no nystagmus. CN VII: raises eyebrows, smile/frown. CN VIII: hearing intact bilaterally. CN IX, X: Voice normal, soft palate elevation normal, symmetrical. [facility] Medical History (Updated 02/17/23 @ 14:06 by Kemal Holm) [place] NSTEMI (non-ST elevated myocardial infarction) Meds Medications and Allergies Allergies ascorbic acid Adverse Reaction (Verified 02/17/23 13:13) Unknown Reaction Exam Physical Exam Vital Signs: Temp Pulse Resp BP Pulse Ox O2 Del Method 98.1 F 71 18 174/81 H 95 Room Air 02/17/23 13:10 02/17/23 13:10 02/17/23 13:10 02/17/23 13:10 02/17/23 13:10 02/17/23 13:10 Assessment & Plan Assessment/Plan (1) Right lower lobe pulmonary nodule: (2) NSTEMI (non-ST elevated myocardial infarction): (3) Heart murmur: Plan Nancy Putnam is an 83-year-old female with a past medical history of angina presenting today with increased persistent chest pain. She presented to the ER following a few hours of continuous chest pain and was found to have elevated serial troponins with slight ST depressions in the inferior leads on EKG. she has a history of persistent chest pain occurring 2 years ago with occasional exacerbation of her symptoms in between. Need for further cardiac workup. 1) NSTEMI - Troponins elevated and trending up, EKG does not show ST elevations - Will follow serial troponins Q8hr, lipid panel ordered - Metoprolol, aspirin, nitro, statin, and brillinta started - Echo ordered -Dual antiplatelets treatment -Nitrate, beta-rangel and statin -Hold off on heparin or low molecular weight heparin expecting cardiac cath in afew hours - Cardiology consulted - Continue to monitor for new emergence or worsening of symptoms 2) Heart murmur - Loudest in aortic area with radiation to carotids - Echo ordered 3) Lung nodule - 1.3 cm nodular radiodensity of the medial right lung base per CXR from ER - Some history of smoking - Will likely need CT for further evaluation of nodule Diet: NPO for potential cardiac catheterization CODE Status: Full code DVT Prophylaxis: SCDs, dual antiplatlets IP vs OBS Justification Based on differential dx, clinical care plan, and risk of adverse events, if untreated, in my clinical judgement this patient requires an acute care setting as: INPATIENT because of an expectation of an over 2 midnight stay. Estimated length of stay (# of days): 3 Documented By: Carine Thompson MD 02/17/23 1350 Signed By: <Electronically signed by Carine Thompson MD> 02/17/23 1420 [facility] Work Phone: [phone]) 721-624212-08-2023 [facility] History general Narrative - Reported* Type Description Date Medical History NSTEMI Medical History Hypertension Surgical History gallbladder Surgical History hysterectomy Surgical History appendectomy Hospitalization History NSTEMI 02/2023 Hospitalization History [place] - in [place] 2019 [employer] Other Evaluation note* Diagnosis Onset Date Resolution Status Chest pain acute Heart murmur acute Noncompliance acute NSTEMI (non-ST elevated myocardial infarction) acute Right lower lobe pulmonary nodule acute [facility] Work Phone: Hospital Discharge instructions Additional Instructions I may not have addressed or treated all of your medical illnesses or the abnormal blood work or imaging studies during this hospitalization. Please ask your primary care provider to obtain [facility] records entirely to follow up on all of the abnormal physical, laboratory, and imaging findings that I have not addressed. Please take your medication as directed. Please follow-up with your doctor. Recommend weekly lab draws (BMP) - to be arranged by your Primary Care Provider. Chest x-ray done at [place] showed that you have lung mass on the right side. This could be cancerous. You would need to have a CAT scan of the chest to be arranged by your primary care doctor. Additional workup, investigation, referral and therapeutic intervention will be addressed by your primary care doctor. You may need to follow-up with lung specialist. You may need to have a PET scan. These are to be arranged by your primary care doctor. This is very important and significant I may not have addressed or treated all of your medical illnesses or the abnormal blood work or imaging studies during this hospitalization. Please ask your primary care provider to obtain [facility] records entirely to follow up on all of the abnormal physical, laboratory, and imaging findings that I have not addressed. Please return back to the emergency room or seek medical attention if your symptoms worsen or return. Discharging you from [facility] does not mean that your medical care ends here and now. You may still need additional monitoring, work up, investigation, and treatment plan to be handled from this point on by out patient providers including your primary care provider and specialists. For any medication question, please contact your retail pharmacist or your primary care provider. Thank you. Please return back to the emergency room or seek medical attention if your symptoms worsen or return. Discharging you from [facility] does not mean that your medical care ends here and now. You may still need additional monitoring, work up, investigation, and treatment plan to be handled from this point on by out patient providers including your primary care provider and specialists. For any medication question, please contact your retail pharmacist or your primary care provider. Thank you. DISCHARGE INSTRUCTIONS FOR CARDIAC LICENSED HOME INSPECTOR PHONE NUMBER OF YOUR PHYSICIAN: [phone] PROCEDURE: Heart Cath The following instructions have been prepared to help you care for yourself, or be cared for upon your return home. 1. You were given conscious sedation. Do not operate a vehicle, power tools, make important decisions, or drink alcohol for 24 hours. You might be drowsy or light headed. Return to the Emergency Room if you have trouble breathing, walking or nausea and vomiting. 2. FOR BLEEDING: Apply continuous pressure to the site and call 911. 3. Operative Site Care: Keep the dressing clean and dry. You may change the dressing only if soiled or wet. You may remove the dressing the following morning. You may wash over the puncture site in the shower. If the puncture site is at the wrist no soaking for 3 days. Some bruising or slight swelling may be present. -Signs of infection are redness, warmth, swelling, getting more sore, colored drainage, fever or chills. -Should the arm or leg become cold, numb, blue or white, call the principal accounts clerk immediately. 4. ACTIVITY: You are advised to go directly home from the hospital. Restrict your activities for the rest of the day. Resume light or normal activities tomorrow. Do not engage in any activity that will stress the puncture site. Avoid heavy lifting (over 15 lbs.), straining or bending at the catheter site for 48 hours after discharge. If the puncture site is at the wrist do not manipulate wrist for 24 hours and no lifting more than 3 lbs for 3 days. 5. DIET:You may eat your regular diet when you desire. 6. MEDICATIONS: Resume your daily prescription schedule. Prescriptions may be sent with you if needed. Use as directed. When taking pain medications, you may experience dizziness or drowsiness. Do not drink alcohol or drive when taking pain medications. 7. If you should experience episodes of angina e.g. chest discomfort, heaviness, tightness, pressure, burning, with or without radiation to the neck, jaws, arms, or back- Use 1 Nitrostat under your tongue every 5-10 minutes, and up to 3 tablets. If no relief- Call 911 and go to the nearest Emergency Room. -Notify the office for recurrent angina, chest pain or other concerns. You may NOT drive yourself home! Follow the medication instructions provided on your discharge. If the dosages and instructions on this sheet differ from the dosage and instructions on the bottle, follow the instructions on the bottle. [facility] is not responsible for incorrect prescription information provided by the patient during their visit. Do not stop your medications without consulting your health care provider. Please take the list with you to your next doctor's appointment.[facility] Work Phone: Summary Purpose Family History No Family History Records FoundNo Family History Records FoundNo Family History Records FoundNo Family History Records FoundNo Family History Records FoundNo Family History Records Found Advance Directives Latest Code Status on File Code Status Date Activated Date Inactivated Comments Full Code 04/06/2017 4:03 PM 04/08/2017 4:48 PM Latest Code Status on File Code Status Date Activated Date Inactivated Comments Full Code 09/29/2018 5:02 PM Full Code 04/06/2017 4:03 PM 04/08/2017 4:48 PM Latest Code Status on File Code Status Date Activated Date Inactivated Comments Full Code 09/29/2018 5:02 PM Full Code 04/06/2017 4:03 PM 04/08/2017 4:48 PM Advance Directive Response Recorded Date/ Time Advance Directives No February 17, 2023 10:20am History of Present Illness * Suleiman Gil MD - 01/31/2018 2:30 PM EST Formatting of this note may be different from the original. History of Present Illness Better but still with cough and congestion Review of Systems Constitutional: Negative for activity change, appetite change, fatigue and fever. HENT: Negative for congestion, ear pain, rhinorrhea, sore throat and trouble swallowing. Eyes: Negative for pain, discharge, redness and visual disturbance. Respiratory: Negative for cough, choking, shortness of breath and wheezing. Cardiovascular: Negative for chest pain and palpitations. Gastrointestinal: Negative for abdominal pain, constipation, diarrhea, nausea and vomiting. Endocrine: Negative for polydipsia, polyphagia and polyuria. Genitourinary: Negative for difficulty urinating and dysuria. Musculoskeletal: Negative for arthralgias, gait problem and myalgias. Skin: Negative for color change, rash and wound. Allergic/Immunologic: Negative for immunocompromised state. Neurological: Negative for dizziness, speech difficulty, weakness, light- headedness and headaches. Hematological: Negative for adenopathy. Psychiatric/Behavioral: Negative for agitation, behavioral problems and dysphoric mood. The patientis not nervous/anxious. Vitals: Blood pressure 154/72, pulse 68, temperature 98.9 ?F (37.2 ?C), temperature source Oral, resp. rate 16, height 1.6 m (5' 3 ), weight 61.2 kg (135 lb), SpO2 99 %. Physical Exam Constitutional: She is oriented to person, place, and time. She appears well- developed and well-nourished. HENT: Head: Normocephalic and atraumatic. Nose: Mucosal edema present. Mouth/Throat: Posterior oropharyngeal erythema present. Eyes: Pupils are equal, round, and reactive to light. Conjunctivae and EOM are normal. Neck: Normal range of motion. Neck supple. No thyromegaly present. Cardiovascular: Normal rate, regular rhythm and normal heart sounds. Exam reveals no gallop and no friction rub. No murmur heard. Pulmonary/Chest: Effort normal and breath sounds normal. No respiratory distress. She has no wheezes. Abdominal: Soft. Bowel sounds are normal. She exhibits no mass. There is no tenderness. There is norebound and no guarding. Musculoskeletal: Normal range of motion. She exhibits no tenderness or deformity. Neurological: She is alert and oriented to person, place, and time. No cranial nerve deficit. Coordination normal. Skin: Skin is warm and dry. No rash noted. No erythema. Psychiatric: She has a normal mood and affect. Her behavior is normal. Judgment and thought contentnormal. Nursing note and vitals reviewed. Neurologic Exam Mental Status Oriented to person, place, and time. Cranial Nerves CN III, IV, Pupils are equal, round, and reactive to light. Extraocular motions are normal. Assessment and Plan Try doxy ICD-10-CM 1. Upper respiratory tract infection, unspecified type J06.9 in this encounter* Suleiman Gil MD - 01/23/2018 11:30 AM EST Formatting of this note may be different from the original. History of Present Illness Past week of congestion, sinus and now in chest. Getting worse. Review of Systems Constitutional: Negative for activity change, appetite change, fatigue and fever. HENT: Positive for congestion, sinus pressure and sore throat. Negative for ear pain, rhinorrhea and trouble swallowing. Eyes: Negative for pain, discharge, redness and visual disturbance. Respiratory: Positive for cough. Negative for choking, shortness of breath and wheezing. Cardiovascular: Negative for chest pain and palpitations. Gastrointestinal: Negative for abdominal pain, constipation, diarrhea, nausea and vomiting. Endocrine: Negative for polydipsia, polyphagia and polyuria. Genitourinary: Negative for difficulty urinating and dysuria. Musculoskeletal: Negative for arthralgias, gait problem and myalgias. Skin: Negative for color change, rash and wound. Allergic/Immunologic: Negative for immunocompromised state. Neurological: Negative for dizziness, speech difficulty, weakness, light- headedness and headaches. Hematological: Negative for adenopathy. Psychiatric/Behavioral: Negative for agitation, behavioral problems and dysphoric mood. The patientis not nervous/anxious. Vitals: Blood pressure 158/84, pulse 73, temperature 99.5 F (37.5 C), temperature source Oral, resp. rate 16, height 1.6 m (5' 3 ), weight 63 kg (139 lb), SpO2 97 %. Physical Exam Constitutional: She is oriented to person, place, and time. She appears well- developed and well-nourished. HENT: Head: Normocephalic and atraumatic. Nose: Mucosal edema present. Mouth/Throat: Posterior oropharyngeal edema and posterior oropharyngeal erythema present. Eyes: Pupils are equal, round, and reactive to light. Conjunctivae and EOM are normal. Neck: Normal range of motion. Neck supple. No thyromegaly present. Cardiovascular: Normal rate, regular rhythm and normal heart sounds. Exam reveals no gallop and no friction rub. No murmur heard. Pulmonary/Chest: Effort normal and breath sounds normal. No respiratory distress. She has no wheezes. Abdominal: Soft. Bowel sounds are normal. She exhibits no mass. There is no tenderness. There is norebound and no guarding. Musculoskeletal: Normal range of motion. She exhibits no tenderness or deformity. Neurological: She is alert and oriented to person, place, and time. No cranial nerve deficit. Coordination normal. Skin: Skin is warm and dry. No rash noted. No erythema. Psychiatric: She has a normal mood and affect. Her behavior is normal. Judgment and thought contentnormal. Nursing note and vitals reviewed. Neurologic Exam Mental Status Oriented to person, place, and time. Cranial Nerves CN III, IV, Pupils are equal, round, and reactive to light. Extraocular motions are normal. Assessment and Plan Try keflex and tessalon ICD-10-CM 1. Upper respiratory tract infection, unspecified type J06.9 in this encounter* Suleiman Gil MD - 05/15/2018 2:00 PM EST History of Present Illness Yest started with chills and sore throat Also going thru divorce, nerves bothering, would like something to help Review of Systems Constitutional: Positive for chills. Negative for activity change, appetite change, fatigue and fever. HENT: Positive for congestion and sore throat. Negative for ear pain, rhinorrhea and trouble swallowing. Eyes: Negative for pain, discharge, redness and visual disturbance. Respiratory: Positive for cough. Negative for choking, shortness of breath and wheezing. Cardiovascular: Negative for chest pain and palpitations. Gastrointestinal: Negative for abdominal pain, constipation, diarrhea, nausea and vomiting. Endocrine: Negative for polydipsia, polyphagia and polyuria. Genitourinary: Negative for difficulty urinating and dysuria. Musculoskeletal: Negative for arthralgias, gait problem and myalgias. Skin: Negative for color change, rash and wound. Allergic/Immunologic: Negative for immunocompromised state. Neurological: Negative for dizziness, speech difficulty, weakness, light- headedness and headaches. Hematological: Negative for adenopathy. Psychiatric/Behavioral: Negative for agitation, behavioral problems and dysphoric mood. The patientis not nervous/anxious. Vitals: Blood pressure 126/80, pulse 73, temperature 99.6 F (37.6 C), resp. rate 16, height 1.6 m (5' 3 ), weight 60.1 kg (132 lb 8 oz), SpO2 96 %. Physical Exam Constitutional: She is oriented to person, place, and time. She appears well- developed and well-nourished. HENT: Head: Normocephalic and atraumatic. Nose: Mucosal edema present. Mouth/Throat: Posterior oropharyngeal edema and posterior oropharyngeal erythema present. Eyes: Pupils are equal, round, and reactive to light. Conjunctivae and EOM are normal. Neck: Normal range of motion. Neck supple. No thyromegaly present. Cardiovascular: Normal rate, regular rhythm and normal heart sounds. Exam reveals no gallop and no friction rub. No murmur heard. Pulmonary/Chest: Effort normal and breath sounds normal. No respiratory distress. She has no wheezes. Abdominal: Soft. Bowel sounds are normal. She exhibits no mass. There is no tenderness. There is norebound and no guarding. Musculoskeletal: Normal range of motion. She exhibits no tenderness or deformity. Neurological: She is alert and oriented to person, place, and time. No cranial nerve deficit. Coordination normal. Skin: Skin is warm and dry. No rash noted. No erythema. Psychiatric: She has a normal mood and affect. Her behavior is normal. Judgment and thought contentnormal. Nursing note and vitals reviewed. Neurologic Exam Mental Status Oriented to person, place, and time. Cranial Nerves CN III, IV, Pupils are equal, round, and reactive to light. Extraocular motions are normal. Assessment and Plan Try doxy Try paxil 10 ICD-10-CM 1. Upper respiratory tract infection, unspecified type J06.9 2. Anxiety disorder, unspecified type F41.9 documented in this encounter* Conor Pearson, - 10/02/2018 10:41 AM EDT Consult progress note: Stress MS ( Tako Subo syndrome ), EF 35 40 percent 85% OM1 HPI Nancy Serna is a 78 y.o. female seen by [facility] cardiology today for follow-up. No chest pain or shortness of breath. Blood pressure elevated today. Rhythm sinus. ECG 09/30/[address] changes, borderline normal Subjective: Patient Active Problem List Diagnosis Essential hypertension, benign Glaucoma Cataract Seasonal allergic rhinitis Status post lumbar laminectomy Anemia Chest pain due to coronary artery disease Chest pain of uncertain etiology NSTEMI (non-ST elevated myocardial infarction) Past Medical History: Diagnosis Date Arthritis hands Blood transfusion reaction Pt reports h/o possible blood transfusion 1980s but NO adverse reaction Cataract b Essential hypertension, benign Exercise tolerance finding METS > 4 stairs daily at home, although llimited by back pain Glaucoma History of corticosteroid therapy < 2yrs Pain lower back, right leg pain, left ankle pain since July 2016 Seasonal allergic rhinitis Toe fracture, left Wears dentures Upper denture Wears glasses Past Surgical History: Procedure Laterality Date FUSION POSTERIOR W/ POSTERIOR INTERBODY LUMBAR N/A 04/06/2017 Laterality: N/A; Surgeon: Villa Goldberg MD; Location: [facility] OR FUSION POSTERIOR W/ POSTERIOR INTERBODY LUMBAR EA ADDL INTERSPACE ADD-ON PX N/A 04/06/2017 Laterality: N/A; Surgeon: Villa Goldberg MD; Location: [facility] OR LAMINECTOMY VERTEBRAL SEGMENT LUMBAR N/A 04/06/2017 Laterality: N/A; Surgeon: Villa Goldberg MD; Location: [facility] OR LAMINECTOMY VERTEBRAL SEGMENT CERVICAL N/A 04/06/2017 Laterality: N/A; Surgeon: Villa Goldberg MD; Location: [facility] OR INSERTION SPINAL INSTRUMENTATION POSTERIOR SEGMENTAL ADD-ON PX N/A 04/06/2017 Laterality: N/A; Surgeon: Villa Goldberg MD; Location: [facility] OR APPLICATION INTERBODY/INTERVERTEBRAL BIOMECHANICAL DEVICE ADD-ON PX N/A 04/06/2017 Laterality: N/A; Surgeon: Villa Goldberg MD; Location: [facility] OR GRAFT SPINE SURGERY ONLY ALLOGRAFT OR OSTEOPROMOTIVE MATERIAL POSTERIOR ADD-ON PX N/A 04/06/2017 Laterality: N/A; Surgeon: Villa Goldberg MD; Location: [facility] OR GRAFT SPINE SURGERY ONLY AUTOGRAFT POSTERIOR ADD-ON PX N/A 04/06/2017 Laterality: N/A; Surgeon: Villa Goldberg MD; Location: [facility] OR ASPIRATION BONE MARROW N/A 04/06/2017 Laterality: N/A; Surgeon: Villa Goldberg MD; Location: [facility] OR CHOLECYSTECTOMY 1970s open azeb HYSTERECTOMY 1960s TOTAL NOSE SURGERY 2000s deviated septum repair Medications Prior to Admission Medication Sig Dispense Refill Last Dose ACAI PO Take 1 tablet by mouth daily. 09/29/2018 ASHWAGANDHA PO Take 1 tablet by mouth daily. 09/29/2018 Bilberry, Vaccinium myrtillus, (BILBERRY PO) Take 1 tablet by mouth daily. 09/29/2018 BIOTIN PO Take 1 tablet by mouth daily. 09/29/2018 CALCIUM PO Take 1 tablet by mouth 2 times daily. 09/29/2018 Cholecalciferol (VITAMIN D3 PO) Take 1 tablet by mouth daily. 09/29/2018 Cyanocobalamin (VITAMIN B12 PO) Take 1 tablet by mouth daily. 09/29/2018 FOLIC ACID PO Take 1 tablet by mouth daily. 09/29/2018 GARLIC PO Take 1 tablet by mouth daily. 09/29/2018 GINKGO BILOBA PO Take 1 tablet by mouth daily. 09/29/2018 GINSENG PO Take 1 tablet by mouth daily. 09/29/2018 GLUCOSAMINE-CHONDROITIN PO Take 1 tablet by mouth 2 times daily. 09/29/2018 L-ARGININE PO Take by mouth. 09/29/2018 lisinopril 20 MG Tab Take 1 tablet by mouth daily. 90 tablet 3 09/29/2018 loratadine 10 MG Tab tablet Take 1 tablet by mouth daily. 90 tablet 3 09/29/2018 LUTEIN PO Take 1 tablet by mouth daily. 09/29/2018 MAGNESIUM PO Take 1 tablet by mouth daily. 09/29/2018 [place] 3-6-9 Fatty Acids (OMEGA-3-6-9 PO) Take 1 tablet by mouth daily. 09/29/2018 TURMERIC CURCUMIN PO Take 1 tablet by mouth daily. 09/29/2018 VITAMIN A PO Take 1 tablet by mouth daily. 09/29/2018 VITAMIN E PO Take 1 tablet by mouth daily. 09/29/2018 ZIOPTAN 0.0015 % Solution Apply 1 drop topically daily. 6 09/29/2018 DISABILITY PLACARD Unable to walk 200ft. 1 year 1 Each 0 Taking Scheduled medications aspirin 81 mg Oral Daily atorvastatin 80 mg Oral QHS clopidogrel 75 mg Oral Daily metoprolol 25 mg Oral Q12H pantoprazole 40 mg Oral Daily Continuous Infusions PRN Medications acetaminophen, labetalol, Morphine Sulfate (PF), ondansetron 4mg/2ml, potassium chloride Allergies Allergen Reactions Vitamin C [Ascorbate] Swelling Seasonal Social History Socioeconomic History Marital status: Spouse name: Not on file Number of children: Not on file Years of education: Not on file Highest education level: Not on file Occupational History Not on file Social Needs Financial resource strain: Not on file Food insecurity: Worry: Not on file Inability: Not on file Transportation needs: Medical: Not on file Non-medical: Not on file Tobacco Use Smoking status: Never Smoker Smokeless tobacco: Never Used Substance and Sexual Activity Alcohol use: No Comment: occasionally Drug use: No Sexual activity: Not on file Lifestyle Physical activity: Days per week: Not on file Minutes per session: Not on file Stress: Not on file Relationships Social connections: Talks on phone: Not on file Gets together: Not on file Attends anabaptist service: Not on file Active member of club or organization: Not on file Attends meetings of clubs or organizations: Not on file Relationship status: Not on file Intimate partner violence: Fear of current or ex partner: Not on file Emotionally abused: Not on file Physically abused: Not on file Forced sexual activity: Not on file Other Topics Concern Not on file Social History Narrative Not on file Review of System 10 systems reviewed, pertinent positives listed above Blood pressure 151/67, pulse 59, temperature 98.1 F (36.7 C), temperature source Temporal, resp. rate 16, height 1.626 m (5' 4 ), weight 59.1 kg (130 lb 4.7 oz), SpO2 100 %. Body mass index is 22.36 kg/m . Physical Exam General appearance - alert, well developed, well nourished,78 y.o.female with appropriate affect HEENT PERRLA, EOMI, no xanthelasma or icterus Neck - , No JVD,Carotid upstroke normal bilaterally without bruits. No thyromegaly or adenopathy Lungs - clear to auscultation, no wheezes, rales or rhonchi Heart - regular rate and regular rhythm, normal S1 and S2 , no significant murmurs, no click rub orlift , Abdomen - soft, nontender, no organomegaly Extremities -no edema, clubbing or cyanosis. pulses 2+ bilaterally Skin - normal coloration and turgor, no laxity Psych- appropriate mood, Musculoskeletal - no joint deformity, tendon xanthoma LABS Lab Results Component Value Date SODIUM 134 (L) 10/02/2018 SODIUM 134 (L) 10/01/2018 SODIUM 135 (L) 09/30/2018 POTASSIUM 4.4 10/02/2018 POTASSIUM 4.2 10/01/2018 POTASSIUM 4.1 09/30/2018 MAGNESIUM 2.1 04/08/2017 MAGNESIUM 1.7 04/07/2017 MAGNESIUM 1.6 04/06/2017 CALCIUM 8.3 (L) 10/02/2018 CALCIUM 8.8 10/01/2018 CALCIUM 9.5 09/29/2018 CHLORIDE 103 10/02/2018 CHLORIDE 99 10/01/2018 CHLORIDE 101 09/30/2018 TP 6.9 10/01/2018 TP 7.7 09/29/2018 TP 7.8 03/23/2017 BUN 20 10/02/2018 BUN 19 10/01/2018 BUN 17 09/30/2018 CREATSERUM 0.79 10/02/2018 CREATSERUM 0.68 10/01/2018 CREATSERUM 0.88 09/30/2018 ALBUMIN 4.3 10/01/2018 ALBUMIN 4.6 09/29/2018 ALBUMIN 4.5 03/23/2017 BILITOTAL 1.0 10/01/2018 BILITOTAL 0.8 09/29/2018 BILITOTAL 0.4 03/23/2017 AST 55 (H) 10/01/2018 AST 48 (H) 09/29/2018 AST 35 03/23/2017 ALKPHOS 66 10/01/2018 ALKPHOS 65 09/29/2018 ALKPHOS 82 03/23/2017 CO2 24 10/02/2018 CO2 22 10/01/2018 CO2 24 09/30/2018 AGRATIO 1.7 10/01/2018 AGRATIO 1.5 09/29/2018 AGRATIO 1.4 03/23/2017 ALT 44 10/01/2018 ALT 37 09/29/2018 ALT 34 03/23/2017 GFR >60 10/02/2018 GFR >60 10/01/2018 GFR >60 09/30/2018 GFRAA >60 10/02/2018 GFRAA >60 10/01/2018 GFRAA >60 09/30/2018 GFRCOMMENT Average GFR for 70+ years old = 75. 10/02/2018 GFRCOMMENT Average GFR for 70+ years old = 75. 10/01/2018 GFRCOMMENT Average GFR for 70+ years old = 75. 09/30/2018 GLUCOSE 109 (H) 10/02/2018 GLUCOSE 117 (H) 10/01/2018 GLUCOSE 100 09/30/2018 TROP 0.76 (HH) 09/30/2018 TROP 1.19 (HH) 09/30/2018 TROP 1.33 (HH) 09/30/2018 Lab Results Component Value Date CHOLESTEROL 136 10/02/2018 CHOLESTEROL 160 09/30/2018 TRIG 67 10/02/2018 TRIG 110 09/30/2018 HDL 43 10/02/2018 HDL 50 09/30/2018 LDLCALC 80 10/02/2018 LDLCALC 88 09/30/2018 BLDL 13 10/02/2018 BLDL 22 09/30/2018 TCHHDLMANENT 3.16 10/02/2018 TCHDLMANENT 3.20 09/30/2018 Lab Results Component Value Date PT 13.9 10/01/2018 PT 14.5 (H) 09/29/2018 INR 1.08 10/01/2018 INR 1.14 (H) 09/29/2018 PTT 102.6 (H) 10/01/2018 PTT 177.5 (HH) 10/01/2018 WBC 5.7 10/02/2018 WBC 5.7 10/01/2018 RBC 4.30 10/02/2018 RBC 4.19 10/01/2018 HGB 14.2 10/02/2018 HGB 13.8 10/01/2018 HCT 43.2 10/02/2018 HCT 40.3 10/01/2018 MCV 100.5 (H) 10/02/2018 MCV 96.1 10/01/2018 MEANCELHGB 33.0 10/02/2018 MEANCELHGB 32.9 10/01/2018 MEANCELHGCON 32.8 10/02/2018 MEANCELHGCON 34.2 10/01/2018 RBCDISTRIBU 13.4 10/02/2018 RBCDISTRIBU 12.9 10/01/2018 PLATELET 166 10/02/2018 PLATELET 177 10/01/2018 MPV 8.9 10/02/2018 MPV 9.1 10/01/2018 NEUTROPHILS 63.9 10/02/2018 NEUTROPHILS 51.2 10/01/2018 LYMPHOCYTES 21.2 10/02/2018 LYMPHOCYTES 34.9 10/01/2018 MONOCYTE 13.3 (H) 10/02/2018 MONOCYTE 10.2 (H) 10/01/2018 EOSINOPHILS 1.1 10/02/2018 EOSINOPHILS 0.10 10/02/2018 BASOPHILS 0.5 10/02/2018 BASOPHILS 0.0 10/02/2018 DIFFTYPE AUTO DIFF 10/02/2018 DIFFTYPE AUTO DIFF 10/01/2018 Assessment & Plan Hemodynamically and allegedly stable. Blood pressure elevated and LV dysfunction. Switch metoprololto carvedilol. May discharge, follow-up Dr. Putnam 2 4 weeks Conor Pearson DO 10/02/2018 10:42 AM * Delfina Trotter LSW - 10/01/2018 3:28 PM EDT Attempted to see patient this date but was informed by nursing that she is in the [facility]. CM to attempted again tomorrow morning. CM to follow. * Barbara Hernadnez CNP - 10/01/2018 12:[address] [facility] LOS: 2 days Principal Problem: Chest pain due to coronary artery disease Active Problems: Essential hypertension, benign Chest pain of uncertain etiology SUBJECTIVE: Patient resting in bed. Denies fever, chills, chest pain or sob. Is eating and drinking well. PHYSICAL EXAMINATION: Blood pressure 166/76, pulse 66, temperature 97.6 F (36.4 C), temperature source Temporal, resp. rate 16, height 1.626 m (5' 4 ), weight 61.8 kg (136 lb 3.9 oz), SpO2 98 %. Gen: Comfortable in bed, no signs of distress HEENT: Normocephalic, atraumatic, Moist oral mucous membranes Neck: supple, Lungs: Clear to auscultation BL, anterior and posterior, without rales, rhonchi or wheezing Heart: Regular in rate and rhythm. Without murmur, rub or gallop Abd: Soft and non-distended. Non tender BSPx 4 Skin: No obvious rashes or cyanosis. Neuro: Grossly non-focal examination. Intake and Output: Intake/Output Summary (Last 24 hours) at 10/01/2018 1219 Last data filed at 10/01/2018 0746 Gross per 24 hour Intake 1079.5 ml Output 2400 ml Net -1320.5 ml Daily Weight: Wt Readings from Last 3 Encounters: 09/29/18 61.8 kg (136 lb 3.9 oz) 07/12/18 59.4 kg (131 lb) 05/15/18 60.1 kg (132 lb 8 oz) CURRENT MEDICATIONS: Current Facility-Administered Medications Medication Dose Route Frequency Provider Last Rate Last Dose acetaminophen (TYLENOL) tablet 650 mg 650 mg Oral Q4H PRN Dimas Barry MD aspirin chewable tablet 81 mg 81 mg Oral Daily Dimas Barry MD 81 mg at 10/01/18 0818 atorvastatin (LIPITOR) tablet 80 mg 80 mg Oral QHS Isaías Ingram II, MD 80 mg at 09/30/18 2120 Heparin Sod (Porcine) in D5W 76726-7 UT/500ML-% infusion 350 Units/hr Intravenous Continuous Dimas Barreto MD Stopped at 10/01/18 1009 labetalol (NORMODYNE) injection 20 mg 20 mg Intravenous Q6H PRN Barbara Hernandez CNP Morphine Sulfate (PF) injection 2 mg 2 mg Intravenous Q3H PRN Dimas Barry MD nitroGLYCERIN in dextrose 5% 50 mg/250 ml premix infusion 0-200 mcg/min Intravenous Continuous Maryse Patrick PA-C 3 mL/hr at 09/30/18 1657 10 mcg/min at 09/30/18 1657 ondansetron 4mg/2ml (ZOFRAN) injection 4 mg 4 mg Intravenous Q4H PRN Dimas Barry MD pantoprazole (PROTONIX) tablet DR 40 mg 40 mg Oral Daily Barbara Hernandez CNP 40 mg at 10/01/18 0820 potassium chloride (K-DUR, KLOR-CON M20) tablet ER 40 mEq 40 mEq Oral Daily PRN Barbara Hernandez CNP [facility]: CBC Lab Results Component Value Date/Time WBC 5.7 10/01/2018 05:58 AM WBC 5.6 09/30/2018 05:17 AM WBC 8.4 09/29/2018 02:45 PM HGB 13.8 10/01/2018 05:58 AM HGB 12.8 09/30/2018 05:17 AM HGB 14.1 09/29/2018 02:45 PM HCT 40.3 10/01/2018 05:58 AM HCT 37.7 09/30/2018 05:17 AM HCT 41.0 09/29/2018 02:45 PM PLATELET 177 10/01/2018 05:58 AM PLATELET 173 09/30/2018 05:17 AM PLATELET 201 09/29/2018 02:45 PM Chemistry Lab Results Component Value Date/Time GLUCOSE 117 (H) 10/01/2018 05:56 AM GLUCOSE 100 09/30/2018 05:17 AM GLUCOSE 119 (H) 09/29/2018 02:45 PM BUN 19 10/01/2018 05:56 AM BUN 17 09/30/2018 05:17 AM BUN 17 09/29/2018 02:45 PM CREATSERUM 0.68 10/01/2018 05:56 AM CREATSERUM 0.88 09/30/2018 05:17 AM CREATSERUM 0.94 09/29/2018 02:45 PM SODIUM 134 (L) 10/01/2018 05:56 AM SODIUM 135 (L) 09/30/2018 05:17 AM SODIUM 132 (L) 09/29/2018 02:45 PM POTASSIUM 4.2 10/01/2018 05:56 AM POTASSIUM 4.1 09/30/2018 05:17 AM POTASSIUM 4.5 09/29/2018 02:45 PM CHLORIDE 99 10/01/2018 05:56 AM CHLORIDE 101 09/30/2018 05:17 AM CHLORIDE 98 09/29/2018 02:45 PM CO2 22 10/01/2018 05:56 AM CO2 24 09/30/2018 05:17 AM CO2 21 (L) 09/29/2018 02:45 PM ALBUMIN 4.3 10/01/2018 05:56 AM ALBUMIN 4.6 09/29/2018 02:45 PM ALBUMIN 4.5 03/23/2017 01:27 PM CALCIUM 8.8 10/01/2018 05:56 AM CALCIUM 9.5 09/29/2018 02:45 PM CALCIUM 8.4 04/08/2017 05:25 AM MAGNESIUM 2.1 04/08/2017 05:25 AM MAGNESIUM 1.7 04/07/2017 05:35 AM MAGNESIUM 1.6 04/06/2017 04:16 PM COAG Lab Results Component Value Date/Time PT 13.9 10/01/2018 05:56 AM PT 14.5 (H) 09/29/2018 02:45 PM PT 11.8 04/07/2017 05:35 AM INR 1.08 10/01/2018 05:56 AM INR 1.14 (H) 09/29/2018 02:45 PM INR 1.14 (H) 04/07/2017 05:35 AM PTT 102.6 (H) 10/01/2018 08:01 AM PTT 177.5 (HH) 10/01/2018 05:56 AM PTT 106.5 (H) 09/30/2018 10:55 PM ASSESSMENT & PLAN: Principal Problem: Chest pain due to coronary artery disease- serial troponins elevated, trending down. peak at 1.47, ,monitor on telemetry, aspirin,heparin,statin, nitroglycerin , cardiology following echocardiogram- [facility] today - no chest pain currently Active Problems: Essential hypertension, benign- home medication DVT/GI prophylaxis-PPI and heparin Full Code Please note Portions of this note utilized test company dictation software, please excuse any typographical or grammatical errors. Associated attestation - Khurram Waddell MD - 10/01/2018 9:22 PM EDT I have independently interviewed and examined the patient. I have discussed loza elements of the care plan with the [facility] [employer] and I agree with the findings and care plan as stated above. No cp D/w dr putnam - [facility] today [place] at bedside' Heart rrr Lungs clear On iv heparin See orders No edemas Pulses intact No new neuro deficit * Zane Ramos RPh,PharmD - 10/01/2018 8:39 AM EDT Pharmacy to Dose - Heparin Note NAME: Nancy Serna Room/Bed: [facility] Indication: Patient Active Problem List Diagnosis Essential hypertension, benign Glaucoma Cataract Seasonal allergic rhinitis Status post lumbar laminectomy Anemia Chest pain due to coronary artery disease Chest pain of uncertain etiology Protocol: Heparin Protocol Dosing Chart Cardiac Current rate: Held (1 hour) Labs: PTT Date Value Ref Range Status 10/01/2018 102.6 (H) 23.2 - 34.5 SEC Final Comment: CARDIAC AND PE/DVT THERAPUTIC RANGE 75-103 SEC VASCULAR/THREATENED LIMB THERAPUTIC RANGE 86-118 SEC Plan: Patient s PTT was below 103 after 1 hour hold. Will follow Cardiac protocol by decreasing the rate to 7 mL/hr with no bolus. Next PTT will be scheduled for 1500. Please contact pharmacy if there are any questions. Pharmacy will continue to follow. Signed: Zane Ramos RPh,[place], [facility]lema Phone: [phone] Date/Time: 10/01/2018 8:40 AM * Zane Ramos RPh,PharmMichelle - 10/01/2018 6:36 AM EDT Pharmacy to Dose - Heparin Note NAME: Nancy Serna Room/Bed: [facility] Indication: Patient Active Problem List Diagnosis Essential hypertension, benign Glaucoma Cataract Seasonal allergic rhinitis Status post lumbar laminectomy Anemia Chest pain due to coronary artery disease Protocol: Heparin Protocol Dosing Chart Cardiac Current rate: 9 mL/hr Labs: PTT Date Value Ref Range Status 10/01/2018 177.5 (HH) 23.2 - 34.5 SEC Final Comment: CARDIAC AND PE/DVT THERAPUTIC RANGE 75-103 SEC VASCULAR/THREATENED LIMB THERAPUTIC RANGE 86-118 SEC Result called to read back by: CHAPIS 10/01/2018 @ 06:31 by BKGuru Plan: Patient s PTT was above range. Will follow Cardiac protocol by holding heparin infusion for 1 hour.Next PTT will be scheduled for 0740 (after 1 hour hold). Please contact pharmacy if there are any questions. Pharmacy will continue to follow. Signed: Zane Ramos RPh,PharmMichelle, [facility] Phone: [phone] Date/Time: 10/01/2018 6:37 AM * Umesh Peguero - 09/30/2018 11:37 PM EDT Pharmacy to Dose - Heparin Note NAME: Nancy Serna Room/Bed: [facility] Indication: Patient Active Problem List Diagnosis Essential hypertension, benign Glaucoma Cataract Seasonal allergic rhinitis Status post lumbar laminectomy Anemia Chest pain due to coronary artery disease Protocol: Heparin Protocol Dosing Chart Cardiac Current rate: 10 mL/hr Labs: PTT Date Value Ref Range Status 09/30/2018 106.5 (H) 23.2 - 34.5 SEC Final Comment: CARDIAC AND PE/DVT THERAPUTIC RANGE 75-103 SEC VASCULAR/THREATENED LIMB THERAPUTIC RANGE 86-118 SEC Plan: Patient s PTT (106.5) was SUPRAtherapeutic (goal range 75-103). Will follow Cardiac protocol by decreasing the rate to 9 mL/hr . Next PTT will be scheduled for 10-01-18 @ 0600. Please contact pharmacy if there are any questions. Pharmacy will continue to follow. Signed: Umesh Peguero RPh Phone: [phone] Date/Time: 09/30/2018 11:37 PM * Rolanda York RPh,PharmD - 09/30/2018 4:04 PM EDT Pharmacy to Dose - Heparin Note NAME: Nancy Serna Room/Bed: [facility] Indication: Patient Active Problem List Diagnosis Essential hypertension, benign Glaucoma Cataract Seasonal allergic rhinitis Status post lumbar laminectomy Anemia Chest pain due to coronary artery disease Protocol: Heparin Protocol Dosing Chart Cardiac Current rate: 12 mL/hr Labs: PTT Date Value Ref Range Status 09/30/2018 120.2 (H) 23.2 - 34.5 SEC Final Comment: CARDIAC AND PE/DVT THERAPUTIC RANGE 75-103 SEC VASCULAR/THREATENED LIMB THERAPUTIC RANGE 86-118 SEC Testing performed at [place] [id number] Plan: Patient s PTT was SUPRAtherapeutic range. Will follow Cardiac protocol by HOLDING the drip for ONE HOUR followed by a decrease in the the rate to 10 mL/hr (a 2ml/hr decrease) when restarted @1700 09/30/18. Next PTT will be scheduled for 2300 09/30/18. Please contact pharmacy if there are any questions. Pharmacy will continue to follow. Signed: Rolanda Yokr RPh,PharmD, [facility] Phone: [phone] Date/Time: 09/30/2018 4:05 PM * Isaías Ingram II, MD - 09/30/2018 1:09 PM EDT Subjective: The patient denies chest pain, palpitations, shortness of breath, lightheadedness, or dizziness. She denies neck and jaw discomfort and claims to feel well. Telemetry: Sinus rhythm. Vital signs: 09/30/18 1300 66 124/58 99 % RB 09/30/18 1100 97.6 F (36.4 C) 63 16 116/56 98 % 0-->alert and calm RB 09/30/18 1000 67 120/59 RB 09/30/18 0900 63 126/58 100 % RB 09/30/18 0800 61 16 121/58 100 % RB 09/30/18 0736 97.5 F (36.4 C) RB 09/30/18 0730 0-->alert and calm RB 09/30/18 0700 57 113/56 100 % RB 09/30/18 0600 52 126/62 100 % AR 09/30/18 0500 60 122/58 100 % AR 09/30/18 0400 56 116/59 100 % AR 09/30/18 0300 57 107/52 100 % AR 09/30/18 0200 57 113/54 100 % AR 09/30/18 0100 58 121/55 100 % AR 09/30/18 0000 97.7 F (36.5 C) 59 125/60 100 % AR I/O's: 09/29 0700 09/29 1459 09/29 1500 09/29 2259 09/29 2300 09/30 0659 Total 09/30 0700 09/30 1459 Total Intake 110.4 60.9 171.3 Output 0040 109 9548 250 250 Net -1089.6 -889.1 -1978.7 -250 -250 Examination: General:a well nourished and well developed elderly female who was sitting up in bed in [facility]. Skin:normal turgor and no rashes. Nodes - anterior cervical, posterior cervical, epitrochlear, and inguinal nonpalpable. HEENT PERRLA, EOMI, no xanthelasma nor icterus. Neck - supple, FROM, No JVD,Carotids upstroke normal bilaterally without bruits. No thyromegaly andno lymphadenopathy. Chest - symmetrical and non-tender. Lungs - clear to auscultation, full respiratory excursions, no wheezes, rales nor rhonchi. Heart - PMI MCL 5th ICS, normal rate and regular rhythm, S1 and S2 normal, no murmurs, rubs, nor gallops noted. Abdomen - soft, nontender, nondistended. No HSM, masses, nor bruits appreciated. Extremities -no cyanosis, clubbing, nor edema. Upper and lower extremity pulses 2+ bilaterally. No femoral bruits. Musculoskeletal - no joint deformity, no tendon xanthomas. Psych- appropriate mood and affect Neurological - no focal neurological deficits appreciated. Speech fluent and appropriate, moves all4 extremities. Medications: Aspirin 81 mg po daily Brilinta 90 mg po every 12 hours NTG drip Heparin drip Atorvastatin 80 mg po at bedtime Lopressor Labetalol 20 mg IV every 6 hours as needed Tylenol 650 mg po every 4 hours as needed Zofran 4 mg IV every 4 hours as needed Protonix 40 mg po daily KCL 40 mEq po daily as needed Labs: Troponin I #1 0.03, #2 1.47. #3 1.33, #4 1.19, and #5 0.76. Ref Range & Units 09/30/18 0517 GLUCOSE 70 - 100 MG/DL 100 Comment: NORMAL <100 mg/dL PREDIABETES 101-126 mg/dL DIABETES 126 mg/dL or higher BUN 7 - 20 MG/DL 17 CREATININE SERUM 0.52 - 1.04 MG/DL 0.88 SODIUM 136 - 145 MMOL/L 135Low POTASSIUM 3.5 - 5.1 MMOL/L 4.1 CHLORIDE 98 - 107 MMOL/L 101 CARBON DIOXIDE (CO2) 22 - 30 MMOL/L 24 ESTIMATED GFR, NON AMER ml/min/1.73sq.m >60 ESTIMATED GFR, ml/min/1.73sq.m >60 Ref Range & Units 09/30/18 0517 WBC (WHITE BLOOD COUNT) 3.6 - 11.0 /cmm 5.6 RBC 4.0 - 5.4 /cmm 3.88Low HEMOGLOBIN (HGB) 12.0 - 16.0 G/DL 12.8 HEMATOCRIT (HCT) 36.0 - 48.0 % 37.7 MEAN CELL VOLUME 80.0 - 100.0 FL 97.0 Mean Cell HGB 26.0 - 35.0 PG 32.9 MEAN CELL HGB CONCENTRATION 27.0 - 37.0 G/DL 33.9 RBC DISTRIBUTION 11.5 - 14.5 % 13.1 PLATELET COUNT 130.0 - 400.0 /cmm 173 MEAN PLATELET VOLUME 7.4 - 11.0 FL 8.6 Ref Range & Units 09/30/18 0826 PTT 23.2 - 34.5 SEC 55.4High 12 lead ECG:sinus bradycardia at 57 bpm, normal axis and intervals, RADHA, resolved ST segment elevation in the anteroseptal distribution and resolved ST depression inferiorly. CXR: none. Diagnoses: 1. NSTE MS 2. Coronary artery disease. 3. Hypertension. 4. A family history of cardiovascular disease in multiple first-degree relatives. 5. Abnormal ECG. Assessment and Plan: This is a 78 year old female who is status post an acute MS leading to borderline changes that did not quite meet criteria to take her to the [facility] laboratory for emergent PCI and stenting upon presentation,and whose ECG normalized and whose symptoms resolved with medical therapy. Based on her ECG changesshe is likely to have significant epicardial CAD involving the proximal LAD or multivessel disease.She is to be kept NPO except for medications after midnight for a diagnostic cardiac cath +/- PCI and stenting tomorrow. Her IV Heparin will be held 6 hours prior to cardiac cath. Continue her other cardiac medications and add Atorvastatin at 80 mg po at bedtime. Check and echocardiogram tomorrow to assess her ventricular function and her valves. * Rolanda York RPh,PharmD - 09/30/2018 10:07 AM EDT Pharmacy - IV to PO Conversion Documentation NAME: Nancy Serna Room/Bed: [facility] Previous Medication Order: Protonix 40mg IV every 24 hours New Medication Order: Protonix 40mg PO every 24 hours The above medication was converted from intravenous to oral administration in accordance with the [facility] IV to PO Conversion Policy. Orders have been updated in [place]. The patient was eligible for conversion based one or more of the following: Functioning gastrointestinal tract and absence of bowel abnormalities Adequate oral intake o Soft or solid diet ordered o Tolerating at least 1000ml/day of oral fluids OR 40ml/hr of enteral nutrition Tolerating other oral medication Please contact pharmacy if there are any questions. Pharmacy will continue to follow. Signed: Rolanda York RPh,fOelia, sulema Phone: [phone] Date/Time: 09/30/2018 10:07 AM * Roalnda York RPh,PharmD - 09/30/2018 9:01 AM EDT Pharmacy to Dose - Heparin Note NAME: Nancy Serna Room/Bed: [facility] Indication: Patient Active Problem List Diagnosis Essential hypertension, benign Glaucoma Cataract Seasonal allergic rhinitis Status post lumbar laminectomy Anemia Chest pain due to coronary artery disease Protocol: Heparin Protocol Dosing Chart Cardiac Current rate: 8 mL/hr Labs: PTT Date Value Ref Range Status 09/30/2018 55.4 (H) 23.2 - 34.5 SEC Final Comment: CARDIAC AND PE/DVT THERAPUTIC RANGE 75-103 SEC VASCULAR/THREATENED LIMB THERAPUTIC RANGE 86-118 SEC Plan: Patient s PTT was SUBtherapeutic range. Will follow Cardiac protocol by increasing the rate to 12 mL/hr, but will NOT give a bolus due to patient specific response history. Next PTT will be scheduledfor 1500 09/30/18. Please contact pharmacy if there are any questions. Pharmacy will continue to follow. Signed: Rolanda York RPh,PharmD, [facility] Phone: [phone] Date/Time: 09/30/2018 9:01 AM * Umesh Peguero - 09/30/2018 2:46 AM EDT Pharmacy to Dose - Heparin Note NAME: Nancy Serna Room/Bed: [facility] Indication: Patient Active Problem List Diagnosis Essential hypertension, benign Glaucoma Cataract Seasonal allergic rhinitis Status post lumbar laminectomy Anemia Chest pain due to coronary artery disease Protocol: Heparin Protocol Dosing Chart Cardiac Current rate: 0 mL/hr - on hold x 2 hours Labs: PTT Date Value Ref Range Status 09/30/2018 82.3 (H) 23.2 - 34.5 SEC Final Comment: CARDIAC AND PE/DVT THERAPUTIC RANGE 75-103 SEC VASCULAR/THREATENED LIMB THERAPUTIC RANGE 86-118 SEC Plan: Patient s PTT was 82.3 following the 2 hour hold of heparin - will now restart the heparin drip at 8 mL/hr per cardiac protocol. Next PTT 09-30-18 @ 0800 Please contact pharmacy if there are any questions. Pharmacy will continue to follow. Signed: Umesh Peguero RPh Phone: [phone] Date/Time: 09/30/2018 2:46 AM * Umesh Peguero - 09/29/2018 11:31 PM EDT Pharmacy to Dose - Heparin Note NAME: Nancy Serna Room/Bed: 3781/1 Indication: Patient Active Problem List Diagnosis Essential hypertension, benign Glaucoma Cataract Seasonal allergic rhinitis Status post lumbar laminectomy Anemia Chest pain due to coronary artery disease Protocol: Heparin Protocol Dosing Chart Cardiac Current rate: 14 mL/hr Labs: PTT Date Value Ref Range Status 09/29/2018 >200.0 (HH) 23.2 - 34.5 SEC Final Comment: CARDIAC AND PE/DVT THERAPUTIC RANGE 75-103 SEC VASCULAR/THREATENED LIMB THERAPUTIC RANGE 86-118 SEC Result called to read back by: MARCIN ZHU 09/29/2018 @ 22:17 by PDW Plan: Patient s PTT was >200.0 (goal range 75-103). Will follow cardiac protocol by HOLDING the heparin drip x 2 hours and drawing a stat PTT 09-30-18 @ 0015 Please contact pharmacy if there are any questions. Pharmacy will continue to follow. Signed: Umesh Peguero RPh Phone: [phone] Date/Time: 09/29/2018 11:32 PM * Rolanda York RPh,PharmD - 09/29/2018 3:28 PM EDT Pharmacy to Dose - Heparin Note NAME: Nancy Serna Room/Bed: E004/E004 Indication: Patient Active Problem List Diagnosis Essential hypertension, benign Glaucoma Cataract Seasonal allergic rhinitis Status post lumbar laminectomy Anemia Protocol: Heparin Protocol Dosing Chart Cardiac Current rate: New start Labs: PTT Date Value Ref Range Status 09/29/2018 28.0 23.2 - 34.5 SEC Final Comment: CARDIAC AND PE/DVT THERAPUTIC RANGE 75-103 SEC VASCULAR/THREATENED LIMB THERAPUTIC RANGE 86-118 SEC Plan: Patient will start with a bolus of 3500 units and a starting rate of 14 ml/hr. Next PTT will be drawn at 2130 09/29/18. Please contact pharmacy if there are any questions. Pharmacy will continue to follow. Signed: Rolanda York RPh,PharmD, [facility] Phone: [phone] Date/Time: 09/29/2018 3:28 PM documented in this encounter* Suleiman Gil MD - 10/09/2018 3:40 PM EDT History of Present Illness Follow up from hospital Better slowly Chart reviewed Review of Systems Constitutional: Negative for activity change, appetite change, fatigue and fever. HENT: Negative for congestion, ear pain, rhinorrhea, sore throat and trouble swallowing. Eyes: Negative for pain, discharge, redness and visual disturbance. Respiratory: Negative for cough, choking, shortness of breath and wheezing. Cardiovascular: Negative for chest pain and palpitations. Gastrointestinal: Negative for abdominal pain, constipation, diarrhea, nausea and vomiting. Endocrine: Negative for polydipsia, polyphagia and polyuria. Genitourinary: Negative for difficulty urinating and dysuria. Musculoskeletal: Negative for arthralgias, gait problem and myalgias. Skin: Negative for color change, rash and wound. Allergic/Immunologic: Negative for immunocompromised state. Neurological: Negative for dizziness, speech difficulty, weakness, light- headedness and headaches. Hematological: Negative for adenopathy. Psychiatric/Behavioral: Negative for agitation, behavioral problems and dysphoric mood. The patientis not nervous/anxious. Vitals: Blood pressure 128/60, pulse 63, temperature 98.4 F (36.9 C), temperature source Oral, height 1.626 m (5' 4 ), weight 61 kg (134 lb 8 oz), SpO2 99 %. Physical Exam Constitutional: She is oriented to person, place, and time. She appears well- developed and well-nourished. HENT: Head: Normocephalic and atraumatic. Mouth/Throat: Oropharynx is clear and moist. Eyes: Pupils are equal, round, and reactive to light. Conjunctivae and EOM are normal. Neck: Normal range of motion. Neck supple. No thyromegaly present. Cardiovascular: Normal rate, regular rhythm and normal heart sounds. Exam reveals no gallop and no friction rub. No murmur heard. Pulmonary/Chest: Effort normal and breath sounds normal. No respiratory distress. She has no wheezes. Abdominal: Soft. Bowel sounds are normal. She exhibits no mass. There is no tenderness. There is norebound and no guarding. Musculoskeletal: Normal range of motion. She exhibits no tenderness or deformity. Neurological: She is alert and oriented to person, place, and time. No cranial nerve deficit. Coordination normal. Skin: Skin is warm and dry. No rash noted. No erythema. Psychiatric: She has a normal mood and affect. Her behavior is normal. Judgment and thought contentnormal. Nursing note and vitals reviewed. Neurologic Exam Mental Status Oriented to person, place, and time. Cranial Nerves CN III, IV, Pupils are equal, round, and reactive to light. Extraocular motions are normal. Assessment and Plan Cont with present plan Follow with Cardiology Grad increase activity as planned ICD-10-CM 1. 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 Coughing a lot and recent fall, tripped up stairs. Review of Systems Constitutional: Negative for activity change, appetite change, fatigue and fever. HENT: Negative for congestion, ear pain, rhinorrhea, sore throat and trouble swallowing. Eyes: Negative for pain, discharge, redness and visual disturbance. Respiratory: Negative for cough, choking, shortness of breath and wheezing. Cardiovascular: Negative for chest pain and palpitations. Gastrointestinal: Negative for abdominal pain, constipation, diarrhea, nausea and vomiting. Endocrine: Negative for polydipsia, polyphagia and polyuria. Genitourinary: Negative for difficulty urinating and dysuria. Musculoskeletal: Negative for arthralgias, gait problem and myalgias. Skin: Negative for color change, rash and wound. Allergic/Immunologic: Negative for immunocompromised state. Neurological: Negative for dizziness, speech difficulty, weakness, light- headedness and headaches. Hematological: Negative for adenopathy. Psychiatric/Behavioral: Negative for agitation, behavioral problems and dysphoric mood. The patientis not nervous/anxious. Vitals: Blood pressure 122/64, pulse 83, temperature 98.7 F (37.1 C), temperature source Oral, resp. rate 16, height 1.6 m (5' 3 ), weight 59.4 kg (131 lb), SpO2 98 %. Physical Exam Constitutional: She is oriented to person, place, and time. She appears well- developed and well-nourished. HENT: Head: Normocephalic and atraumatic. Mouth/Throat: Oropharynx is clear and moist. Eyes: Pupils are equal, round, and reactive to light. Conjunctivae and EOM are normal. Neck: Normal range of motion. Neck supple. No thyromegaly present. Cardiovascular: Normal rate, regular rhythm and normal heart sounds. Exam reveals no gallop and no friction rub. No murmur heard. Pulmonary/Chest: Effort normal and breath sounds normal. No respiratory distress. She has no wheezes. Abdominal: Soft. Bowel sounds are normal. She exhibits no mass. There is no tenderness. There is norebound and no guarding. Musculoskeletal: Normal range of motion. She exhibits no tenderness or deformity. Post mid rib tenderness Neurological: She is alert and oriented to person, place, and time. No cranial nerve deficit. Coordination normal. Skin: Skin is warm and dry. No rash noted. No erythema. Psychiatric: She has a normal mood and affect. Her behavior is normal. Judgment and thought contentnormal. Nursing note and vitals reviewed. Neurologic Exam Mental Status Oriented to person, place, and time. Cranial Nerves CN III, IV, Pupils are equal, round, and reactive to light. Extraocular motions are normal. Assessment and Plan Get xrays Cont otc cough med ICD-10-CM 1. Rib pain R07.81 XR RIBS WITH CHEST, BILATERAL 2. Cough R05 XR RIBS WITH CHEST, BILATERAL documented in this encounter* Elias Putnam MD - 10/16/2018 10:40 AM EDT Chief Complaint Chief Complaint Patient presents with Follow-up Hospital-Heart Cath follow up 10/01/2018 Assessment & Plan 1. Takotsubu syndrome: Pt with apical ballooning and OM1 lesion around 80% But the wall motion was c/w stress induced CMP as pt undergoing major stressful divorce. Pt denies any chest pain and intermittent SOB she attributes to stress. She is also getting stress LLAMAS. BP ok 140/90. -cont DAPT -echo 3 months -f/u 4 months 2. HTN: stable, cont meds HPI Nancy Serna is a 78 y.o. female seen by [facility]ology today for recent diagnosis Takotsubu.. She was admitted and had elevated troponin and cath showed apical ballooning. Today she is tearful about split up. The a/p as above. Patient Active Problem List Diagnosis Essential hypertension, benign Glaucoma Cataract Seasonal allergic rhinitis Status post lumbar laminectomy Anemia Chest pain due to coronary artery disease Chest pain of uncertain etiology NSTEMI (non-ST elevated myocardial infarction) Past Medical History: Diagnosis Date Arthritis hands Blood transfusion reaction Pt reports h/o possible blood transfusion 1980s but NO adverse reaction Cataract b Essential hypertension, benign Exercise tolerance finding METS > 4 stairs daily at home, although llimited by back pain Glaucoma History of corticosteroid therapy < 2yrs Pain lower back, right leg pain, left ankle pain since July 2016 Seasonal allergic rhinitis Toe fracture, left Wears dentures Upper denture Wears glasses Past Surgical History: Procedure Laterality Date HEART CATHETERIZATION 09/2018 FUSION POSTERIOR W/ POSTERIOR INTERBODY LUMBAR N/A 04/06/2017 Laterality: N/A; Surgeon: Villa Goldberg MD; Location: [facility] OR FUSION POSTERIOR W/ POSTERIOR INTERBODY LUMBAR EA ADDL INTERSPACE ADD-ON PX N/A 04/06/2017 Laterality: N/A; Surgeon: Villa Goldberg MD; Location: [facility] OR LAMINECTOMY VERTEBRAL SEGMENT LUMBAR N/A 04/06/2017 Laterality: N/A; Surgeon: Villa Goldberg MD; Location: [facility] OR LAMINECTOMY VERTEBRAL SEGMENT CERVICAL N/A 04/06/2017 Laterality: N/A; Surgeon: Villa Goldberg MD; Location: [facility] OR INSERTION SPINAL INSTRUMENTATION POSTERIOR SEGMENTAL ADD-ON PX N/A 04/06/2017 Laterality: N/A; Surgeon: Villa Goldberg MD; Location: [facility] OR APPLICATION INTERBODY/INTERVERTEBRAL BIOMECHANICAL DEVICE ADD-ON PX N/A 04/06/2017 Laterality: N/A; Surgeon: Villa Goldberg MD; Location: [facility] OR GRAFT SPINE SURGERY ONLY ALLOGRAFT OR OSTEOPROMOTIVE MATERIAL POSTERIOR ADD-ON PX N/A 04/06/2017 Laterality: N/A; Surgeon: Villa Goldberg MD; Location: [facility] OR GRAFT SPINE SURGERY ONLY AUTOGRAFT POSTERIOR ADD-ON PX N/A 04/06/2017 Laterality: N/A; Surgeon: Villa Goldberg MD; Location: [facility] OR ASPIRATION BONE MARROW N/A 04/06/2017 Laterality: N/A; Surgeon: Villa Goldberg MD; Location: [facility] OR CHOLECYSTECTOMY 1970s open azeb HYSTERECTOMY 1960s TOTAL NOSE SURGERY deviated septum repair (Not in a hospital admission) Current Outpatient Medications Medication Sig Dispense Refill ACAI PO Take 1 tablet by mouth daily. ASHWAGANDHA PO Take 1 tablet by mouth daily. aspirin 81 MG Chew Tab chewable tablet Chew 1 tablet daily. 30 tablet 0 Bilberry, Vaccinium myrtillus, (BILBERRY PO) Take 1 tablet by mouth daily. BIOTIN PO Take 1 tablet by mouth daily. CALCIUM PO Take 1 tablet by mouth 2 times daily. carveDILOL 12.5 MG Tab tablet Take 1 tablet by mouth every 12 hours. 60 tablet 0 Cholecalciferol (VITAMIN D3 PO) Take 1 tablet by mouth daily. clopidogrel 75 MG Tab tablet Take 1 tablet by mouth daily. 30 tablet 0 Cyanocobalamin (VITAMIN B12 PO) Take 1 tablet by mouth daily. DISABILITY PLACSAMMY Unable to walk 200ft. 1 year 1 Each 0 FOLIC ACID PO Take 1 tablet by mouth daily. GARLIC PO Take 1 tablet by mouth daily. GINKGO BILOBA PO Take 1 tablet by mouth daily. GINSENG PO Take 1 tablet by mouth daily. GLUCOSAMINE-CHONDROITIN PO Take 1 tablet by mouth 2 times daily. L-ARGININE PO Take by mouth. loratadine 10 MG Tab tablet Take 1 tablet by mouth daily. 90 tablet 3 LUTEIN PO Take 1 tablet by mouth daily. MAGNESIUM PO Take 1 tablet by mouth daily. [place] 3-6-9 Fatty Acids (OMEGA-3-6-9 PO) Take 1 tablet by mouth daily. TURMERIC CURCUMIN PO Take 1 tablet by mouth daily. VITAMIN A PO Take 1 tablet by mouth daily. VITAMIN E PO Take 1 tablet by mouth daily. ZIOPTAN 0.0015 % Solution Apply 1 drop topically daily. 6 No current facility-administered medications for this visit. Scheduled medications Continuous Infusions PRN Medications Allergies Allergen Reactions Vitamin C [Ascorbate] Swelling Seasonal Social History Socioeconomic History Marital status: Spouse name: Not on file Number of children: Not on file Years of education: Not on file Highest education level: Not on file Occupational History Not on file Social Needs Financial resource strain: Not on file Food insecurity: Worry: Not on file Inability: Not on file Transportation needs: Medical: Not on file Non-medical: Not on file Tobacco Use Smoking status: Never Smoker Smokeless tobacco: Never Used Substance and Sexual Activity Alcohol use: No Comment: occasionally Drug use: No Sexual activity: Not on file Lifestyle Physical activity: Days per week: Not on file Minutes per session: Not on file Stress: Not on file Relationships Social connections: Talks on phone: Not on file Gets together: Not on file Attends anabaptist service: Not on file Active member of club or organization: Not on file Attends meetings of clubs or organizations: Not on file Relationship status: Not on file Intimate partner violence: Fear of current or ex partner: Not on file Emotionally abused: Not on file Physically abused: Not on file Forced sexual activity: Not on file Other Topics Concern Not on file Social History Narrative Not on file Family History Problem Relation Age of Onset Hypertension Son Allergic Rhinitis Other Arthritis - Osteo Other Heart Disease - Other Other Arthritis - Osteo Mother Gallbladder Arthritis - Osteo Father Heart Attack Review of System Constitutional: Negative malaise/fatigue, significant weight loss Hematologic: Negative for anemia, hypercoagulable states, transfusion dependency Endocrine: Negative polyuria, thyroid goiter, flushing Skin: Negative rash, lesions, ulcerations HEENT: Negative diplopia, visual file defect, vertigo Cardiovascular: see HPI and negative for chest wall trauma Respiratory: see HPI, negative for chest wall deformity, hemopysis, prior tracheotomy Gastrointestinal: Negative for abdominal pain, GI bleed, bowel obstruction Genitourinary: Negative for nephrolithiasis , dysuria, hematuria Neurological: Negative for khanh syncope, frequent falls, new CVA symptoms, Psychiatric: Negative anxiety, depression, psychiatric disorder Musculoskeletal: Negative for joint pain, joint deformity, swelling Blood pressure 140/90, pulse 63, weight 62.4 kg (137 lb 9.6 oz), SpO2 99 %. Body mass index is 23.62 kg/m . Physical Exam General appearance - alert, well developed, well nourished,78 y.o.female with appropriate affect HEENT PERRLA, EOMI, no xanthelasma or icterus Neck - , No JVD or bruits. Carotid upstrokes brisk. No adenopathy or thyromegaly. Lungs - clear to auscultation, no wheezes, rales or rhonchi Heart - regular rate and regular rhythm, normal S1 and S2 , no significant murmurs, click rub or lift , Abdomen - soft, nontender, no organomegaly Extremities -no edema, clubbing or cyanosis. pulses 2+ bilaterally Neurologic cranial nerves II through XII intact Skin - normal coloration and turgor, no laxity Psych- appropriate mood, Musculoskeletal - no joint deformity, tendon xanthoma Lab Results: Lab Results Component Value Date SODIUM 134 (L) 10/02/2018 SODIUM 134 (L) 10/01/2018 SODIUM 135 (L) 09/30/2018 POTASSIUM 4.4 10/02/2018 POTASSIUM 4.2 10/01/2018 POTASSIUM 4.1 09/30/2018 MAGNESIUM 2.1 04/08/2017 MAGNESIUM 1.7 04/07/2017 MAGNESIUM 1.6 04/06/2017 CALCIUM 8.3 (L) 10/02/2018 CALCIUM 8.8 10/01/2018 CALCIUM 9.5 09/29/2018 CHLORIDE 103 10/02/2018 CHLORIDE 99 10/01/2018 CHLORIDE 101 09/30/2018 TP 6.9 10/01/2018 TP 7.7 09/29/2018 TP 7.8 03/23/2017 BUN 20 10/02/2018 BUN 19 10/01/2018 BUN 17 09/30/2018 CREATSERUM 0.79 10/02/2018 CREATSERUM 0.68 10/01/2018 CREATSERUM 0.88 09/30/2018 ALBUMIN 4.3 10/01/2018 ALBUMIN 4.6 09/29/2018 ALBUMIN 4.5 03/23/2017 BILITOTAL 1.0 10/01/2018 BILITOTAL 0.8 09/29/2018 BILITOTAL 0.4 03/23/2017 AST 55 (H) 10/01/2018 AST 48 (H) 09/29/2018 AST 35 03/23/2017 ALKPHOS 66 10/01/2018 ALKPHOS 65 09/29/2018 ALKPHOS 82 03/23/2017 CO2 24 10/02/2018 CO2 22 10/01/2018 CO2 24 09/30/2018 AGRATIO 1.7 10/01/2018 AGRATIO 1.5 09/29/2018 AGRATIO 1.4 03/23/2017 ALT 44 10/01/2018 ALT 37 09/29/2018 ALT 34 03/23/2017 GFR >60 10/02/2018 GFR >60 10/01/2018 GFR >60 09/30/2018 GFRAA >60 10/02/2018 GFRAA >60 10/01/2018 GFRAA >60 09/30/2018 GFRCOMMENT Average GFR for 70+ years old = 75. 10/02/2018 GFRCOMMENT Average GFR for 70+ years old = 75. 10/01/2018 GFRCOMMENT Average GFR for 70+ years old = 75. 09/30/2018 GLUCOSE 109 (H) 10/02/2018 GLUCOSE 117 (H) 10/01/2018 GLUCOSE 100 09/30/2018 TROP 0.76 (HH) 09/30/2018 TROP 1.19 (HH) 09/30/2018 TROP 1.33 (HH) 09/30/2018 Lab Results Component Value Date CHOLESTEROL 136 10/02/2018 CHOLESTEROL 160 09/30/2018 TRIG 67 10/02/2018 TRIG 110 09/30/2018 HDL 43 10/02/2018 HDL 50 09/30/2018 LDLCALC 80 10/02/2018 LDLCALC 88 09/30/2018 BLDL 13 10/02/2018 BLDL 22 09/30/2018 TCHHDLMANENT 3.16 10/02/2018 TCHHDLMANENT 3.20 09/30/2018 Lab Results Component Value Date PT 13.9 10/01/2018 PT 14.5 (H) 09/29/2018 INR 1.08 10/01/2018 INR 1.14 (H) 09/29/2018 PTT 102.6 (H) 10/01/2018 PTT 177.5 (HH) 10/01/2018 WBC 5.7 10/02/2018 WBC 5.7 10/01/2018 RBC 4.30 10/02/2018 RBC 4.19 10/01/2018 HGB 14.2 10/02/2018 HGB 13.8 10/01/2018 HCT 43.2 10/02/2018 HCT 40.3 10/01/2018 MCV 100.5 (H) 10/02/2018 MCV 96.1 10/01/2018 MEANCELHGB 33.0 10/02/2018 MEANCELHGB 32.9 10/01/2018 MEANCELHGCON 32.8 10/02/2018 MEANCELHGCON 34.2 10/01/2018 RBCDISTRIBU 13.4 10/02/2018 RBCDISTRIBU 12.9 10/01/2018 PLATELET 166 10/02/2018 PLATELET 177 10/01/2018 MPV 8.9 10/02/2018 MPV 9.1 10/01/2018 NEUTROPHILS 63.9 10/02/2018 NEUTROPHILS 51.2 10/01/2018 LYMPHOCYTES 21.2 10/02/2018 LYMPHOCYTES 34.9 10/01/2018 MONOCYTE 13.3 (H) 10/02/2018 MONOCYTE 10.2 (H) 10/01/2018 EOSINOPHILS 1.1 10/02/2018 EOSINOPHILS 0.10 10/02/2018 BASOPHILS 0.5 10/02/2018 BASOPHILS 0.0 10/02/2018 DIFFTYPE AUTO DIFF 10/02/2018 DIFFTYPE AUTO DIFF 10/01/2018 No diagnosis found. The electronic medical record including active problem list, labs, provider notes, past medical history as well as the patient's medications, allergies, pertinent social and family history were reviewed and updated where appropriate with the patient. Vital signs were reviewed and noted as well as physical exam performed and documented as above. All pertinent questions and answers related to the chief complaint and cardiovascular problem list were addressed. Elias Putnam MD 10/16/2018 11:33 AM documented in this encounter* Suleiman Gil MD - 02/04/2019 11:40 AM EST History of Present Illness Sore throat for 2 weeks, getting worse Some pain behind ears Review of Systems Constitutional: Positive for fatigue. Negative for activity change, appetite change and fever. HENT: Positive for congestion, sinus pressure and sore throat. Negative for rhinorrhea and trouble swallowing. Eyes: Negative for pain, discharge, redness and visual disturbance. Respiratory: Positive for cough. Negative for choking, shortness of breath and wheezing. Cardiovascular: Negative for chest pain and palpitations. Gastrointestinal: Negative for abdominal pain, constipation, diarrhea, nausea and vomiting. Endocrine: Negative for polydipsia, polyphagia and polyuria. Genitourinary: Negative for difficulty urinating and dysuria. Musculoskeletal: Negative for arthralgias, gait problem and myalgias. Skin: Negative for color change, rash and wound. Allergic/Immunologic: Negative for immunocompromised state. Neurological: Negative for dizziness, speech difficulty, weakness, light- headedness and headaches. Hematological: Negative for adenopathy. Psychiatric/Behavioral: Negative for agitation, behavioral problems and dysphoric mood. The patientis not nervous/anxious. Vitals: Blood pressure 138/84, pulse 68, temperature 98.2 F (36.8 C), temperature source Oral, resp. rate 16, height 1.626 m (5' 4 ), weight 61.8 kg (136 lb 4.8 oz), SpO2 98 %. Physical Exam Vitals signs and nursing note reviewed. Constitutional: Appearance: She is well-developed. HENT: Head: Normocephalic and atraumatic. Eyes: Conjunctiva/sclera: Conjunctivae normal. Pupils: Pupils are equal, round, and reactive to light. Neck: Musculoskeletal: Normal range of motion and neck supple. Thyroid: No thyromegaly. Cardiovascular: Rate and Rhythm: Normal rate and regular rhythm. Heart sounds: Murmur present. No friction rub. No gallop. Pulmonary: Effort: Pulmonary effort is normal. No respiratory distress. Breath sounds: Normal breath sounds. No wheezing. Abdominal: General: Bowel sounds are normal. Palpations: Abdomen is soft. There is no mass. Tenderness: There is no tenderness. There is no guarding or rebound. Musculoskeletal: Normal range of motion. General: No tenderness or deformity. Skin: General: Skin is warm and dry. Findings: No erythema or rash. Neurological: Mental Status: She is alert and oriented to person, place, and time. Cranial Nerves: No cranial nerve deficit. Coordination: Coordination normal. Psychiatric: Behavior: Behavior normal. Thought Content: Thought content normal. Judgment: Judgment normal. Neurologic Exam Mental Status Oriented to person, place, and time. Cranial Nerves CN III, IV, Pupils are equal, round, and reactive to light. Assessment and Plan Try keflex ICD-10-CM 1. Upper respiratory tract infection, unspecified type J06.9 2. Cough R05 documented in this encounter Assessments Diagnosis Upper respiratory tract infe ction, unspecified type - Primary Diagnosis Upper respiratory tract infe ction, unspecified type - Primary Diagnosis Spondylolisthesis of lumbar region Acquired spondylolisthesis Diagnosis Upper respiratory tract infection, unspecified type- Primary Anxiety disorder, unspecified type Diagnosis Rib pain Chest pain, unspecified Cough Diagnosis Chest pain due to coronary artery disease- Primary Acute coronary syndrome Intermediate coronary syndrome Chest pain of uncertain etiology NSTEMI (non-ST elevated myocardial infarction) Acute myocardial infarction, subendocardial infarction, episode of care unspecified Essential hypertension, benign Anemia, unspecified type Diagnosis Stress-induced cardiomyopathy- Primary Takotsubo syndrome Diagnosis Rib pain- Primary Chest pain, unspecified Cough Diagnosis Stress-induced cardiomyopathy- Primary Takotsubo syndrome Essential hypertension, benign Diagnosis Stress-induced cardiomyopathy Takotsubo syndrome Diagnosis Upper respiratory tract infection, unspecified type- Primary Cough Diagnosis NSTEMI (non-ST elevated myocardial infarction)- Primary Acute myocardial infarction, subendocardial infarction, episode of care unspecified Essential hypertension, benign Chest pain due to coronary artery disease Reason for Referral Status Reason Specialty Diagnoses / Procedures Referre d By Contact Referred To Contact Closed Procedures ECG Ian Guzman MD [address] [place] [address] Status Reason Specialty Diagnoses / Procedures Referre d By Contact Referred To Contact Layton Garcia MD [address] [place] [phone] Status Reason Specialty Diagnoses / Procedures Re ferred By Contact Referred To Contact New Request Procedures INPATIENT ADMISSION NOTIFICATION Dimas Barry MD [address] [place] [phone] Status Reason Specialty Diagnoses / Procedures Referre d By Contact Referred To Contact Closed Procedures ECG Layton Garcia MD [address] [place] [id number] Status Reason Specialty Diagnoses / Procedures Re ferred By Contact Referred To Contact New Request Diagnoses Stress-induced cardiomyopathy Procedures ECHOCARDIOGRAM Elias Putnam MD [address] [place] [phone] Status Reason Specialty Diagnoses / Procedures Referred By Contact Referred To Contact Closed Cardiovascular Medicine Diagnoses Stress-induced cardiomyopathy Procedures ECHOCARDIOGRAM Elias Putnam MD [address] [place] [id number] Cinthya Ont Echocardiograp hy [address] [place], [place] [id number] Discharge Instructions * Discharge Instr - Activity* Fabian Woodruff RN - 10/02/2018 9:08 AM EDT Up as tolerated * Discharge Instr - Diet* Fabian Woodruff RN - 10/02/2018 9:08 AM EDT Heart Healthy * Discharge Instr - Notify* Shanita Funez RN - 10/02/2018 12:18 PM EDT Call your doctor if you have: More redness, swelling, bruising, pain or drainage at the wrist site. White or yellow drainage with an odor from the wrist site. Call 911 if: You passed out (lost consciousness). You have severe difficulty breathing. You have symptoms of a heart attack. These may include: After you call 911, the tube machine operator helper may tell you to chew 1 adult-strength or 2 to 4 low-dose aspirin. Wait for an ambulance. Do not try to drive yourself. Chest pain or pressure, or a strange feeling in your chest. Sweating. Shortness of breath. Nausea or vomiting. Pain, pressure, or a strange feeling in your back, neck, jaw, or upper belly or in one or both shoulders or arms. Lightheadedness or sudden weakness. A fast or irregular heartbeat. Call your doctor today if: You have any trouble breathing. Your chest pain gets worse. You are dizzy or lightheaded, or you feel like you may faint. You are not getting better as expected. You are having new or different chest pain. * Additional Instructions* Fabian Woodruff RN - 10/02/2018 If symptoms return or worsen call 911 or go to nearest emergency room * Attachments The following attachments cannot be sent through Care Everywhere. * Cardiac Cath Care After - Wrist Site ([facility]) ([place]) * Chest Pain ([place]) * Cardiac Cath Care after - Leg Site ([facility]) ([place]) documented in this encounter Chief Complaint and Reason for Visit Chief Complaint n-stemi. Reason for Visit Chest pain Heart murmur Noncompliance NSTEMI (non-ST elevated myocardial infarction) Right lower lobe pulmonary nodule Additional Source Comments INFORMATION SOURCE (unrecogn ized section and content) DATE CREATED AUTHOR 09/01/2017 [facility] DATE CREATED AUTHOR AUTHOR'S ORGANIZ ATION 09/05/2017 [facility] DATE CREATED AUTHOR AUTHOR'S ORGANIZ ATION 07/19/2018 [facility] DATE CREATED AUTHOR [facility]S [facility]IZ ATION [facility] DATE CREATED AUTHOR AUTHOR'S ORGANIZ ATION 09[facility]27/2019 [facility] DATE CREATED AUTHOR AUTHOR'S ORGANIZ ATION 02/25/2023 [facility] Reason for Visit (unrecogniz ed section and content) [facility] 2 WK F/U Reason Comments Cough Reason Comments Sore Throat Nasal Congestion Reason Comments Sore Throat Reason Comments Medication Refill Reason Comments Error Reason Comments Chest Pain rates chest discomfo rt 8/10, states it feels heavy, started 1 hour ago, pt has been active outside today, stat ekg and troponin upon arrival Reason Comments Follow-up hospital Reason Comments Other Reason Comments Medication Management Reason Comments Back Pain Rib Pain Reason Comments Follow-up Hospital-Heart Cath follow up 10/01/2018 Reason Comments Results Status Reason Specialty Diagnoses / Procedures Referred By Contact Referred To Contact Closed Cardiovascular Medicine Diagnoses Stress-induced cardiomyopathy Procedures ECHOCARDIOGRAM Elias Putnam MD [address] [place] [address] Cinthya Ont Echocardiograp hy [address] [place] [address] Reason Comments Nasal Congestion Care Teams (unrecognized sec tion and content) Team Status: Active Member Role Status Dates NON STAFF Primary Care Provider Active Team Status: Inactive Member Role Status Dates NON STAFF Primary Care Provider Active Carine Thompson MD Admit Provider, Attending Provider Active Marie Muhammad MD Other Provider Active FOR RECORDS PERTAINING TO PATIENTS WHO ARE OR HAVE BEEN ENROLLED IN A CHEMICAL DEPENDENCY/SUBSTANCEABUSE PROGRAM, SOME INFORMATION MAY BE OMITTED. This clinical summary was aggregated from multiple sources. Caution should be exercised in using it in the provision of clinical care. This summary normalizes information from multiple sources, and as a consequence, information in this document may materially change the coding, format and clinical context of patient data. In addition, data may be omitted in some cases. CLINICAL DECISIONS SHOULD BE BASED ON THE PRIMARY CLINICAL RECORDS. [facility] [employer] provides no warranty or guarantee of the accuracy or completeness of information in this document.
--- NOTE | 2023-03-09 12:09 | CT_ITS ---
[address] [address] Patient Name: VENTURA MEHTA MRN: [id number] date: 1940 Sex: F Assigned Patient Location: CT Current Patient Location: CT Accession/Order Number: [id number] Exam Date: 03/09/2023 12:40 Report Date: 03/09/2023 16:05 At the request of: NON-STAFF PHYSICIAN Procedure: CT chest w con EXAMINATION: CT chest w con HISTORY: lung nodule R91.1 COMPARISON: XR chest 02/17/2023 TECHNIQUE: Multi-planar CT images were obtained without and/or with IV contrast as indicated by examination type. Axial, Coronal, and Sagittal images. Dose reduction techniques were achieved by using automated exposure control and/or adjustment of mA and/or kV according to patient size and/or use of iterative reconstruction technique. FINDINGS: LUNGS: A few small granulomas scattered within the lungs. Moderate emphysematous changes throughout. Scattered areas of pleural scarring. PLEURA: No mass, effusion, or pneumothorax. VASCULATURE: No abnormality. ROXANE: Calcified lymph nodes compatible with chronic granulomatous disease. MEDIASTINUM: A few calcified lymph nodes. CARDIAC: No enlargement, pericardial thickening, or significant calcification. AORTA: No aneurysm or dissection. CHEST WALL: No mass or axillary adenopathy. BONES: Pectus excavatum. LIMITED ABDOMEN: No suspicious findings Limited images of the upper abdomen. OTHER: Negative. CT/CT chest w con IMPRESSION: 1. Moderate emphysematous changes and chronic granulomatous disease. No suspicious nodules or infiltrates. Electronically authenticated by: DEONTE CARRERO Date: 03/09/2023 16:05
== END 2023-03-09 12:00 | disposition home or self-care (01) ==
LOC: CT 12:01
DX: R91.1 Solitary pulmonary nodule (principal)
CPT/HCPCS: 71260; Q9967

== ENCOUNTER 2024-10-18 13:21 | Outpatient (OUT) | payer OTHER, SELFPAY ==
--- NOTE | 2024-10-18 | MR_ITS ---
[facility] [place] [id number] Patient Name: VENTURA MEHTA MRN: [id number] date: 1940 Sex: F Assigned Patient Location: LAB Current Patient Location: LAB Accession/Order Number: [id number] Exam Date: 10/18/2024 19:57 Report Date: 10/18/2024 20:02 At the request of: YONNY WYATT DO Procedure: MR head/brain wo/w con MRI BRAIN WITHOUT AND WITH INTRAVENOUS CONTRAST CLINICAL DATA: Ataxia, unsteady gait COMPARISON: None FINDINGS: No restricted diffusion. Moderate generalized involutional changes identified with prominence of ventricles and sulci. Remote lacunar stroke left frontal periventricular white matter. Mild chronic small vessel ischemic disease with periventricular subcortical T2 prolongation noted. Major intracranial arterial vascular flow voids preserved. No abnormal GRE signal. No abnormal postcontrast enhancement is identified. Cataract surgery. Mild paranasal sinus mucosal thickening. MR/MR head/brain wo/w con IMPRESSION: Moderate central involutional changes and mild small vessel ischemic disease. Negative for acute intracranial process by MRI. Negative for abnormal postcontrast enhancement. Impression dictated by: Ulices Goodwin M.D. 10/18/2024 8:02 PM Dictation Location: [place] [address] Electronically authenticated by: [id number] Y Date: 10/18/2024 20:02
[2024-10-18 13:47] LABS: Estimated GFR (African America >60 (>=60 mL/min/1.73m^2); Estimated GFR (Non-African Ame >60 (>=60 mL/min/1.73m^2)
== END 2024-10-18 13:22 | disposition home or self-care (01) ==
LOC: LAB 13:22
PROVIDERS: Pathology Anatomic Pathology & Clinical Pathology; Visit Provider Psychiatry & Neurology Neurology
DX: R27.0 Ataxia, unspecified (principal)
CPT/HCPCS: 36415; 70553; 82565; A9575